=== PATIENT | female | born 1930 | race Caucasian/White ===

== ENCOUNTER 2017-01-10 10:55 | Inpatient (IN) | payer MEDICARE, OTHER ==
[~2017-01-10] VITALS: Ht 160 cm; Wt 67.7 kg
[2017-01-10] VITALS (7 sets, daily range): BP systolic 179–192; BP diastolic 74–84; PULSE 64–65; RESP 17–18; TEMP 96.5–97.6; O2SAT 93–98
[~2017-01-10 10:55] MED LIST: APIX5TAB PO; BACT800T5 PO; DIVA250ER PO; HYDR12.56 PO; LEVO125T3 PO; NAPR220T95 PO; NAPR500 PO; VITA-13 PO; ZOLO50TA PO
[2017-01-10] MEDS ORDERED: SODIUM CHLORIDE 0.9% FLUSH 10 ML FLUSH IVF PRN (11:15)
[2017-01-10] MEDS ORDERED: ASPIRIN 81 MG CHEW TAB CHEW ONE (11:15)
[2017-01-10] MEDS ORDERED: MAPA500T PO (11:26)
[2017-01-10 11:27] LABS: AUTOMATED NEUTROPHIL # 6.3 TH/MM3 (1.8-7.7); BASOPHIL # 0.1 TH/MM3 (0-0.2); BASOPHIL % 1.1 % (0.0-2.0); EOSINOPHIL % 0.2 % (0.0-4.0); HEMO FLAGS DIFF FINAL; LYMPH % 13.7 % (9.0-44.0); LYMPHOCYTE # 1.1 TH/MM3 (1.0-4.8); MEAN CELL VOLUME 93.4 FL (80.0-100.0); MEAN CORPUSCULAR HEMOGLOBIN 30.6 PG (27.0-34.0); MEAN CORPUSCULAR HGB CONC 32.7 % (32.0-36.0); MONO % 7.1 % (0.0-8.0); NEUT % 77.9 % (16.0-70.0); PLATELET COUNT 202 TH/MM3 (150-450); RED BLOOD COUNT 5.14 MIL/MM3 (4.00-5.30); RED CELL DISTRIBUTION WIDTH 13.6 % (11.6-17.2)
--- NOTE | 2017-01-10 11:34 | PD ---
HPI Chief Complaint: Chest Pain Time Seen by Provider: 11:00 Travel History International Travel<30 days: No Contact w/Intl Traveler<30days: No Traveled to known affect area: No History of Present Illness HPI This is an 86-year-old female who presents to the emergency department with chest discomfort that started yesterday, constant, moderate severity, associated with shortness of breath. She feels like she is having difficulty taking a deep breath. She is not a good historian and has difficulty telling me what her other medical problems are. She says she's had similar symptoms in the past but doesn't know what from. PFSH Past Medical History Hx Anticoagulant Therapy: Yes (ELAQUIST) Atrial Fibrillation: Yes Heart Rhythm Problems: Yes Cardiovascular Problems: Yes Chest Pain: Yes Cerebrovascular Accident: Yes (TIA AGE 52) Coronary Artery Disease: Yes GERD: Yes Hypertension: Yes Immunizations Current: Yes Seizures: Yes (ABNORMAL EEG) Thyroid Disease: Yes Menopausal: Yes Past Surgical History Body Medical Devices: pacemaker Cardiac Surgery: Yes (Ablation, pacemaker) Cholecystectomy: Yes Endocrine Surgery: Yes (THYROID REMOVED) Eye Surgery: Yes (BILATERAL CATARACT SURGERY) Hysterectomy: Yes Pacemaker: Yes (medtronic) Social History Alcohol Use: No Tobacco Use: No Substance Use: No Allergies-Medications (Allergen,Severity, Reaction): Coded Allergies: Beta Blockers (Verified Allergy, Severe, a-fib, 01/10/17) Quinidine (Verified Allergy, Severe, Hallucinations, 01/10/17) Procainamide Hcl (Verified Allergy, Unknown, PT DOES NOT KNOW, 06/09/16) Uncoded Allergies: HYDROMET SPRAYS (Allergy, Unknown, 05/16/10) Reported Meds & Prescriptions Reported Meds & Active Scripts Active Reported Lidocaine Patch 12 HR (Lidocaine) 5 % Patch 1 Patch TOPICAL DAILY PRN Remove patch after 12 hours Milk of Magnesia Liq (Magnesium Hydroxide) 400 Mg/5 Ml Susp 30 Ml PO DAILY PRN Mapap (Acetaminophen) 325 Mg Tab 325 Mg PO Q4-6H PRN Zoloft (Sertraline HCl) 25 Mg Tab 25 Mg PO DAILY Lortab (Hydrocodone-Acetaminophen) 5-325 Mg Tab 1 Tab PO Q6H PRN [place] Thyroid (Thyroid) 120 Mg Tab 120 Mg PO DAILY Nitro-Dur Patch 24 HR (Nitroglycerin) 0.2 Mg/Hr Patch 0.2 Mg T-DERMAL DAILY Aspirin 81 Mg Chew 81 Mg CHEW DAILY Toviaz ER (Fesoterodine Fumarate) 4 mg Linnea 4 Mg PO DAILY Travatan Z Opth Drops (Travoprost) 0.004 % Soln 1 Drop EACH EYE HS Mapap (Acetaminophen) 500 Mg Tab 500 Mg PO BID Review of Systems ROS Limitations: Poor Historian Physical Exam Narrative GENERAL: Frail elderly female in no acute distress. SKIN: Focused skin assessment warm and dry. HEAD: Atraumatic. Normocephalic. EYES: Pupils equal and round. No injection or drainage. ENT: Moist mucous membranes NECK: Trachea midline. CARDIOVASCULAR: Regular rate and rhythm. No murmur appreciated. 1+ pitting edema in the bilateral lower extremities. RESPIRATORY: Tachypneic. Clear to auscultation. Breath sounds equal bilaterally. GASTROINTESTINAL: Abdomen soft, non-tender, nondistended. MUSCULOSKELETAL: No obvious deformities. NEUROLOGICAL: Awake and alert. No obvious cranial nerve deficits. Moving all extremities. PSYCHIATRIC: Appropriate mood and affect; insight and judgment normal. Data Data Last Documented VS Vital Signs Date Time Temp Pulse Resp B/P Pulse Ox O2 Delivery O2 Flow Rate FiO2 01/10/17 12:37 65 18 186/79 98 Nasal Cannula 2 01/10/17 10:58 97.6 Orders Electrocardiogram (01/10/17 11:01) B-Type Natriuretic Peptide (01/10/17 11:01) Complete Blood Count With Diff (01/10/17 11:01) Comprehensive Metabolic Panel (01/10/17 11:01) D-Dimer (01/10/17 11:01) Magnesium (Mg) (01/10/17 11:01) Prothrombin Time / Inr (Pt) (01/10/17 11:01) Act Partial Throm Time (Ptt) (01/10/17 11:01) Troponin I (01/10/17 11:01) Chest, Single Ap (01/10/17 11:01) Ecg Monitoring (01/10/17 11:01) Bilateral Bp Monitoring (01/10/17 11:01) Iv Access Insert/Monitor (01/10/17 11:01) Oximetry (01/10/17 11:01) Oxygen Administration (01/10/17 11:01) Sodium Chloride 0.9% Flush (Ns Flush) (01/10/17 11:15) Aspirin Chew (Aspirin Chew) (01/10/17 11:15) Ct Pulmonary Angiogram (01/10/17 ) Furosemide Inj (Lasix Inj) (01/10/17 12:30) Admit Order (Ed Use Only) (01/10/17 12:37) Labs Laboratory Tests Test 01/10/17 11:00 White Blood Count 8.0 TH/MM3 Red Blood Count 5.14 MIL/MM3 Hemoglobin 15.7 GM/DL Hematocrit 48.0 % Mean Corpuscular Volume 93.4 FL Mean Corpuscular Hemoglobin 30.6 PG Mean Corpuscular Hemoglobin 32.7 % Concent Red Cell Distribution Width 13.6 % Platelet Count 202 TH/MM3 Mean Platelet Volume 9.4 FL Neutrophils (%) (Auto) 77.9 % Lymphocytes (%) (Auto) 13.7 % Monocytes (%) (Auto) 7.1 % Eosinophils (%) (Auto) 0.2 % Basophils (%) (Auto) 1.1 % Neutrophils # (Auto) 6.3 TH/MM3 Lymphocytes # (Auto) 1.1 TH/MM3 Monocytes # (Auto) 0.6 TH/MM3 Eosinophils # (Auto) 0.0 TH/MM3 Basophils # (Auto) 0.1 TH/MM3 CBC Comment DIFF FINAL Differential Comment Prothrombin Time 12.0 SEC Prothromb Time International 1.1 RATIO Ratio Activated Partial 26.1 SEC Thromboplast Time D-Dimer Quantitative (PE/DVT) 1.42 MG/L FEU Sodium Level 141 MEQ/L Potassium Level 4.6 MEQ/L Chloride Level 106 MEQ/L Carbon Dioxide Level 24.0 MEQ/L Anion Gap 11 MEQ/L Blood Urea Nitrogen 15 MG/DL Creatinine 0.98 MG/DL Estimat Glomerular Filtration 54 ML/MIN Rate Random Glucose 99 MG/DL Calcium Level 9.0 MG/DL Magnesium Level 2.0 MG/DL Total Bilirubin 1.1 MG/DL Aspartate Amino Transf 28 U/L (AST/SGOT) Alanine Aminotransferase 35 U/L (ALT/SGPT) Alkaline Phosphatase 128 U/L Troponin I 0.04 NG/ML B-Type Natriuretic Peptide 3491 PG/ML Total Protein 8.1 GM/DL Albumin 3.9 GM/DL MDM Medical Decision Making Medical Screen Exam Complete: Yes Emergency Medical Condition: Yes Interpretation(s) EKG: Ventricular pacing No leukocytosis Electrolytes are reassuring BNP is 3491 Troponin is 0.04 Chest x-ray: Cardiomegaly with vascular congestive changes CT: No pulmonary embolus Differential Diagnosis Congestive heart failure, pneumonia, pulmonary embolism, acute coronary syndrome , myocardial infarction Narrative Course This is an 86-year-old female who presents to the emergency department with increasing shortness of breath and chest discomfort. She is not a great historian and provides limited information regarding her past medical history. She was placed on a monitor and an IV was established. EKG demonstrates ventricular pacing. Labs are obtained which demonstrate a BNP of 3000. Chest x -ray demonstrates volume overload. Patient will be admitted for IV diuresis and cardiology evaluation as this may be a new diagnosis of congestive heart failure for her. Diagnosis Primary Impression: Acute congestive heart failure Qualified Code: I50.9 - Acute congestive heart failure, unspecified congestive heart failure type Admitting Information Admitting Physician Requests: Admit Latanya Weiner MD January 10, 2017 11:34
[2017-01-10 11:46] LABS: APTT (PATIENT) 26.1 SEC (24.3-30.1); INTERNATIONAL NORMALIZED RATIO 1.1 RATIO
--- NOTE | 2017-01-10 11:47 | RADRPT ---
EXAM DATE/TIME: 01/10/2017 11:07 [facility] COMPARISON: No previous studies available for comparison. INDICATIONS : Chest pains with shortness of breath, pacemaker. MEDICAL HISTORY : Myocardial infarction. SURGICAL HISTORY : Pacemaker. ENCOUNTER: Initial ACUITY: 1 day PAIN SCORE: 5/10 LOCATION: Left chest FINDINGS: The heart is moderately to markedly enlarged. Lungs are hypoaerated with increased density in both lung bases especially on the left. There is central vascular congestion. Pacemaker is noted in place. CONCLUSION: Cardiomegaly with vascular congestive changes. Bibasilar opacity with significant airspace disease and effusion on the left. Cameron Marques MD on January 10, 2017 at 11:44 Board Certified Radiologist. This report was verified electronically.
[2017-01-10 11:48] LABS: ANION GAP 11 MEQ/L (5-15); AST (GOT) 28 U/L (15-37); BLOOD UREA NITROGEN 15 MG/DL (7-18); CHLORIDE 106 MEQ/L (98-107); GLOMERULAR FILTRATION RATE 54 ML/MIN (>89); POTASSIUM 4.6 MEQ/L (3.5-5.1); SODIUM (NA) 141 MEQ/L (136-145)
[2017-01-10 11:53] LABS: ALKALINE PHOSPHATASE 128 U/L (45-117); ALT (GPT) 35 U/L (10-53); TOTAL BILIRUBIN ADULT 1.1 MG/DL (0.2-1.0)
--- NOTE | 2017-01-10 11:57 | EKG ---
Date Performed: 01/10/2017 Time Performed: 10:59:18 PTAGE: 86 years EKG: ELECTRONIC VENTRICULAR PACEMAKER ABNORMAL RHYTHM ECG NO PREVIOUS TRACING DOCTOR: Jeyson Patel Interpretating Date/Time 01/10/2017 11:56:30
[2017-01-10] MEDS ORDERED: FUROSEMIDE 40 MG/4 ML VIAL IV PUSH ONE (12:30)
[2017-01-10] MEDS ORDERED: ARMO120T PO (12:45)
[2017-01-10] MEDS ORDERED: TOVI4TAB PO (12:45)
[2017-01-10] MEDS ORDERED: ASPI81CH CHEW (12:45)
[2017-01-10] MEDS ORDERED: MAPA325T PO (12:45)
[2017-01-10] MEDS ORDERED: NITR0.2D T-DERMAL (12:45)
[2017-01-10] MEDS ORDERED: TRAV0.00 EACH EYE (12:45)
[2017-01-10] MEDS ORDERED: ZOLO25TA PO (12:45)
[2017-01-10] MEDS ORDERED: HYDR-3533 PO (12:45)
[2017-01-10] MEDS ORDERED: LIDO1PAD52 TOPICAL (12:46)
[2017-01-10] MEDS ORDERED: MILKSUS PO (12:46)
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
[2017-01-10] MEDS ORDERED: SODIUM CHLORIDE 0.9% FLUSH 10 ML FLUSH IV FLUSH PRN ×2 (13:15→13:45)
[2017-01-10] MEDS ORDERED: NALOXONE HCL 0.4 MG/ML AMP IV PRN (13:15)
[2017-01-10] MEDS ORDERED: HEPARIN SODIUM - SQ 10,000 UNITS/ML VIAL SQ SCH (13:45)
[2017-01-10] MEDS ORDERED: ACETAMINOPHEN 325 MG TAB PO PRN (13:45)
[2017-01-10] MEDS: HEPARIN SODIUM - IV 10,000 UNITS/10 ML VIAL IV ONE ×2 (14:00→16:31)
[2017-01-10] MEDS ORDERED: HEPARIN-D5W INJ 250 ML IV SCH (14:00)
[2017-01-10] MEDS ORDERED: IOHEXOL 350 MG/ML 10 ML VIAL (for RAD DIAG) IV ONE (14:44)
--- NOTE | 2017-01-10 15:16 | RADRPT ---
EXAM DATE/TIME: 01/10/2017 14:23 [facility] COMPARISON: No previous studies available for comparison. INDICATIONS : Chest pain and shortness of breath as of last night. IV CONTRAST: 70 cc Omnipaque 350 (iohexol) IV RADIATION DOSE: 46.58 CTDIvol (mGy) MEDICAL HISTORY : Seizures. Cerebrovascular disease. Hypertension.AFIB, SURGICAL HISTORY : Cholecystectomy. Hysterectomy.Pacemaker. ENCOUNTER: Initial ACUITY: 1 day PAIN SCALE: 0/10 LOCATION: chest TECHNIQUE: Volumetric scanning of the chest was performed using a pulmonary embolism protocol MIP images were re constructed. Using automated exposure control and adjustment of the mA and/or kV according to patien t size, radiation dose was kept as low as reasonably achievable to obtain optimal diagnostic quality images. FINDINGS: PULMONARY ARTERIES: No filling defects are seen in the pulmonary arteries through the segmental level. LUNGS: Dependent atelectatic changes. PLEURAE: Moderately large pleural effusions bilaterally. MEDIASTINUM: There is good visualization of the great vessels of the middle mediastinum. No evidence of mediastin al or hilar adenopathy/mass. Granulomatous type calcifications most prominent in the left hilum. Athe rosclerotic calcification of the coronary arteries. Heart size is prominent MUSCULOSKELETAL: Within normal limits for patient age. MISCELLANEOUS: The visualized upper abdominal organs demonstrate no acute abnormality. Granulomatous type calcificat ions in the liver and spleen. CONCLUSION: 1. Bilateral moderate-sized pleural effusions. 2. Cardiomegaly. Bibasilar atelectatic changes. 3. No pulmonary embolus. 4. Old granulomatous disease. Fco Guerrero MD on January 10, 2017 at 15:08 Board Certified Radiologist. This report was verified electronically.
--- NOTE | 2017-01-10 15:23 | EC ---
Study Study Date:01/10/2017 STUDY CONCLUSIONS SUMMARY - Left ventricle: The cavity size was normal. Wall thickness was normal. Systolic function was moderately reduced. The estimated ejection fraction was 35%, in the range of 35% to 40%. Diffuse hypokinesis. - Aortic valve: Mild regurgitation. Valve area: 1.41cm^2 (Vmax). - Mitral valve: Mildly calcified annulus. Moderate regurgitation. - Left atrium: The atrium was mildly dilated. - Tricuspid valve: Moderate-severe regurgitation. - Pulmonary arteries: Systolic pressure was moderately to severely increased. PA peak pressure: 72mm Hg (S). If LV function is below 40, please consider prescribing an ACEI or ARB or document rationale for non-use. PROCEDURE DATA STUDY STATUS: Elective. Procedure: Transthoracic echocardiography. Image quality was good. Scanning was performed from the parasternal, apical, and subcostal acoustic windows. Study completion: The patient tolerated the procedure well. Transthoracic echocardiography. M-mode, complete 2D, complete spectral Doppler, and color Doppler. Patient status: Inpatient. CARDIAC ANATOMY LEFT VENTRICLE: The cavity size was normal. Wall thickness was normal. Systolic function was moderately reduced. The estimated ejection fraction was 35%, in the range of 35% to 40%. Diffuse hypokinesis. AORTIC VALVE: Trileaflet; mildly thickened, mildly calcified leaflets. Doppler: Transvalvular velocity was within the normal range. There was no stenosis. Mild regurgitation. Valve area: 1.41cm^2 (Vmax). AORTA: Aortic root: The aortic root was normal in size. MITRAL VALVE: Mildly calcified annulus. Doppler: Transvalvular velocity was within the normal range. There was no evidence for stenosis. Moderate regurgitation. Peak gradient: 6mm Hg (D). LEFT ATRIUM: The atrium was mildly dilated. RIGHT VENTRICLE: The cavity size was normal. Wall thickness was normal. Pacer wire or catheter noted in right ventricle. PULMONIC VALVE: Doppler: Transvalvular velocity was within the normal range. There was no evidence for stenosis. No regurgitation. TRICUSPID VALVE: Structurally normal valve. Doppler: Transvalvular velocity was within the normal range. Moderate-severe regurgitation. PULMONARY ARTERY: The main pulmonary artery was normal-sized. Systolic pressure was moderately to severely increased. RIGHT ATRIUM: The atrium was normal in size. PERICARDIUM: There was no pericardial effusion. SYSTEMIC VEINS: Inferior vena cava: The vessel was normal in size. BASIC MEASUREMENTS ADULT Normal Left ventricle LV internal dimension, ED, chordal level, *52.5 mm 43-52 PLAX LV internal dimension, ES, chordal level, *44.4 mm 23-38 PLAX Fractional shortening, chordal level, PLAX *15 % >29 LV posterior wall thickness, ED 9.54 mm IVS/LVPW ratio, ED 1.06 <1.3 Ventricular septum Septal thickness, ED 10.1 mm Aortic valve Leaflet separation 16 mm 15-26 Right ventricle RV internal dimension, ED, PLAX 29.3 mm 19-38 BASIC MEASUREMENTS ADULT Normal Aortic valve Leaflet separation 16 mm 15-26 Aorta Root diameter, ED 27 mm 20-37 Left atrium Anterior-posterior dimension, ES 40 mm 19-40 LA/aortic root ratio 1.48 DOPPLER MEASUREMENTS ADULT Normal Main pulmonary artery Pressure, S *72 mm Hg =30 Aortic valve Peak velocity, S 132 cm/s Valve area, Vmax 1.41 cm^2 Regurgitant velocity, ED 387 cm/s Regurgitant deceleration 1830 cm/s^2 Regurgitant pressure half-time 620 ms Regurgitant gradient, ED 60 mm Hg Mitral valve Peak E-wave velocity 127 cm/s Peak A-wave velocity 55.8 cm/s Deceleration time *148 ms 150-230 Peak gradient, D 6 mm Hg Peak E/A ratio 2.3 Maximal regurgitant velocity 591 cm/s Tricuspid valve Regurgitant peak velocity 338 cm/s Peak RV-RA gradient, S 46 mm Hg Maximal regurgitant velocity 338 cm/s Systemic veins Estimated CVP 10 mm Hg Right ventricle RV pressure, S *76 mm Hg <30 Pulmonic valve Peak velocity, S 102 cm/s LEGEND: Mean values are shown as u=mean value. Asterisk (*) summers values outside specified normal range. Prepared and signed by Ambrose Beth [id number]
[2017-01-10] MEDS: SACUBITRIL/VALSARTAN 24 MG-26 MG TAB PO SCH ×2 (16:30→21:46)
[2017-01-10] MEDS: FUROSEMIDE 40 MG/4 ML VIAL IV PUSH SCH ×2 (16:32→19:40)
--- NOTE | 2017-01-10 16:49 | MB ---
cc: SAULO MONIQUE DATE OF CONSULTATION: 01/10/2017. REASON FOR CONSULTATION: Evaluation and treatment of acute congestive heart failure. HISTORY OF PRESENT ILLNESS: Brittany Ulloa is an 86-year-old woman well-known to me. This is the first time she has had CHF. The patient has a history of permanent atrial fibrillation and underwent an AV node ablation in 1988. She has a permanent pacemaker and this is a [employer] device which is getting fairly close to needing replacement. She is paced in the VVI mode unipolar. She has previously abandoned the ventricular lead. Her overall health has deteriorated. She has had about 20 falls and has fractured her clavicles. The left clavicle fracture is particularly severe. I took her off anticoagulation at her last office because of that. She has been on only aspirin. She has been noticing three days of progressive shortness of breath which became acutely severe at one o'clock this morning. She described some pain when she takes a deep breath. I really cannot elicit any angina from her. Her shortness of breath has improved since she has been here. She has been noted to have swelling in her feet which according to her is chronic. She has currently been moved from [facility] and she has a supportive daughter. She has no other acute complaints. MEDICATIONS: Her medication list from my office included: 1. [place] thyroid 120 milligrams daily. 2. Aspirin 81 milligrams daily. 3. Depakote 250 milligrams delayed release daily. 4. Hydrochlorothiazide . 5. Levothyroxine 125 micrograms daily. 6. Nitroglycerin 0.2 milligrams transdermal patch daily. 7. Sertraline 50 milligrams daily. 8. Toviaz 4 milligrams extended release daily. 9. Travatan eye drops once daily in the evening. PAST MEDICAL HISTORY: Her past medical history includes: 1. Angina. 2. Coronary artery disease with a catheterization May 16, 2010 showing a 50% mid left anterior descending stenosis but with a normal fractional flow reserve. 3. Gastroesophageal reflux. 4. Essential hypertension. 5. Gout. 6. Hyperlipidemia. 7. Permanent pacemaker. 8. Permanent atrial fibrillation. 9. Polycythemia. 10. Previous TIA in 1987. PAST SURGICAL HISTORY: 1. Ablation of her AV node in 1988. 2. Right arthroscopic knee surgery. 3. Previous cardiac catheterization. 4. Cataract surgery. 5. Cholecystectomy. 6. Clavicle fractures. 7. 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 8. Hysterectomy in 1999. 9. Thyroidectomy in 1973, which was partial. SOCIAL HISTORY: Smoked from age 20 to age 32. ALLERGIES: 1. BETA BLOCKERS WHICH GIVE HER HALLUCINATIONS. 2. HYDROMET SYRUP. 3. NIASPAN. 4. PROCAINAMIDE. 5. QUININE. FAMILY HISTORY: Positive for coronary disease, diabetes and dementia. REVIEW OF SYSTEMS: Negative GI symptoms. Negative urinary symptoms. The remainder of her review of systems is also negative. PHYSICAL EXAMINATION: GENERAL: An elderly, somewhat frail-appearing white female not in any acute respiratory stress at this time. VITAL SIGNS: Charted. She is hypertensive. HEAD, EYES, EARS, NOSE, THROAT: Exam is unremarkable. NECK: Exam shows mildly increased central venous pressure. CHEST: Dullness to the left base. Diminished breath sounds at the bases. CARDIAC: S1-S2 regular rate and rhythm. There is a 2/6 mitral regurgitation murmur. She is a well-healed pacemaker in the left infraclavicular region. ABDOMEN: Soft. EXTREMITIES: Reveal 2+ nonpitting edema. Pulses are intact. EKGS: EKG shows atrial fibrillation with 100% ventricular pacing. LABORATORY DATA: Charted. IMPRESSION: Acute systolic congestive heart failure. Her echo is showing moderate MR and severe TR and an ejection fraction of about 35%. She has an intolerance to beta blockers due to hallucinations. 1. Plan on starting Entresto 24/ twice a day and Lasix 40 IV twice a day. 2. Cover for DVT prophylaxis with Enoxaparin. 3. Anticipate a hospital stay of at least two days. MD VIANEY Nina/KATHY /3:47 PM /4:35 PM
[2017-01-10] MEDS: FUROSEMIDE 40 MG/4 ML VIAL IVP SCH (16:57)
[2017-01-10] MEDS ORDERED: MAGNESIUM HYDROXIDE SUSP 30 ML CUP PO PRN (17:00)
[2017-01-10] MEDS ORDERED: PILL SPLITTER OTHER PRN (17:15)
[2017-01-10] MEDS: ENOXAPARIN SODIUM 40 MG/0.4 ML SYRINGE SQ SCH (18:59)
[2017-01-10] MEDS ORDERED: HEPARIN SODIUM - IV 10,000 UNITS/10 ML VIAL IV PRN ×2 (19:45)
[2017-01-10] MEDS ORDERED: NON-FORMULARY DRUG (Travoprost Opth Drops (Travatan Z Opth Drops) 1 DROP) EACH EYE SCH (21:00)
[2017-01-10] MEDS ORDERED: POTASSIUM CHLORIDE 10 MEQ CONTROLLED RELEASE TAB PO SCH (21:00)
[2017-01-10] MEDS ORDERED: SODIUM CHLORIDE 0.9% FLUSH 10 ML FLUSH IV FLUSH SCH (21:00)
[2017-01-10] MEDS: LATANOPROST 0.005% OPHT SOLN 2.5 ML BTL EACH EYE SCH (21:45)
[2017-01-10] MEDS: POTASSIUM CHLORIDE 10 MEQ CONTROLLED RELEASE TAB PO SCH (21:46)
[2017-01-10] MEDS: SODIUM CHLORIDE 0.9% FLUSH 10 ML FLUSH IV FLUSH SCH (21:53)
[2017-01-11] VITALS (9 sets, daily range): BP systolic 126–174; BP diastolic 54–93; PULSE 65–74; RESP 16–18; TEMP 96–97.2; O2SAT 93–97
[2017-01-11 00:25] LABS: HDL CHOLESTEROL 48.6 MG/DL (40.0-60.0)
[2017-01-11 07:42] LABS: AUTOMATED NEUTROPHIL # 7.9 TH/MM3 (1.8-7.7); BASOPHIL # 0.1 TH/MM3 (0-0.2); BASOPHIL % 1.1 % (0.0-2.0); EOSINOPHIL # 0.1 TH/MM3 (0-0.4); HEMATOCRIT 48.8 % (35.0-46.0); HEMO FLAGS DIFF FINAL; LYMPH % 12.8 % (9.0-44.0); LYMPHOCYTE # 1.3 TH/MM3 (1.0-4.8); MEAN CELL VOLUME 91.8 FL (80.0-100.0); MEAN CORPUSCULAR HEMOGLOBIN 31.4 PG (27.0-34.0); MEAN CORPUSCULAR HGB CONC 34.2 % (32.0-36.0); NEUT % 75.1 % (16.0-70.0); PLATELET COUNT 212 TH/MM3 (150-450); RED BLOOD COUNT 5.32 MIL/MM3 (4.00-5.30); RED CELL DISTRIBUTION WIDTH 13.7 % (11.6-17.2); WHITE BLOOD COUNT 10.6 TH/MM3 (4.0-11.0)
[2017-01-11 08:34] LABS: BICARBONATE 29.2 MEQ/L (21.0-32.0); MAGNESIUM 1.9 MG/DL (1.5-2.5)
[2017-01-11] MEDS ORDERED: FESOTERODINE 4 MG PO SCH (09:00)
[2017-01-11] MEDS ORDERED: PNEUMOCOCCAL POLYVALENT INJ 25 MCG/0.5 ML SYR IM ONE (10:00)
[2017-01-11] MEDS: THYROID 60 MG TAB PO SCH (10:16)
[2017-01-11] MEDS: POTASSIUM CHLORIDE 10 MEQ CONTROLLED RELEASE TAB PO SCH ×2 (10:17→17:10)
[2017-01-11] MEDS: SACUBITRIL/VALSARTAN 24 MG-26 MG TAB PO SCH ×2 (10:17→20:46)
[2017-01-11] MEDS: ASPIRIN 81 MG CHEW TAB CHEW SCH (10:17)
[2017-01-11] MEDS: TOLTERODINE TARTRATE 4 MG CAP LA PO SCH (10:17)
[2017-01-11] MEDS: SERTRALINE HCL 50 MG TAB PO SCH (10:17)
[2017-01-11] MEDS: SODIUM CHLORIDE 0.9% FLUSH 10 ML FLUSH IV FLUSH SCH ×2 (10:18→21:00)
[2017-01-11] MEDS: FUROSEMIDE 40 MG/4 ML VIAL IVP SCH ×2 (10:18→17:10)
[2017-01-11] MEDS ORDERED: POTASSIUM CHLORIDE 10 MEQ CONTROLLED RELEASE TAB PO ONE (12:00)
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
[2017-01-11] MEDS ORDERED: POTASSIUM CHLORIDE 20 MEQ CONTROLLED RELEASE TAB PO STA (12:19)
[2017-01-11] MEDS ORDERED: MAGNESIUM SULFATE 1 GM PREMIX 100 ML IV ONE (12:30)
--- NOTE | 2017-01-11 12:33 | PD.CARD.PN ---
Subjective Subjective Remarks chest hurts when she takes a deap breath. Still a little dyspnea Objective Medications Current Medications Medications (Trade) Dose Ordered Sig/Tim Route Start Time Stop Time Status Last Admin (Narcan Inj) 0.4 mg UNSCH PRN IV 01/10/17 13:15 (NS Flush) 2 ml UNSCH PRN IV FLUSH 01/10/17 13:45 (Lasix Inj) 40 mg BID@09,18 IVP 01/10/17 18:00 01/11/17 10:18 (Tylenol) 650 mg Q4H PRN PO 01/10/17 13:45 (NS Flush) 2 ml BID IV FLUSH 01/10/17 21:00 01/11/17 10:18 (Entresto 24-26 Mg) 1 tab BID PO 01/10/17 16:00 01/11/17 10:17 (Lovenox Inj) 40 mg Q24H SQ 01/10/17 17:00 01/10/17 18:59 (Aspirin Chew) 81 mg DAILY CHEW 01/11/17 09:00 01/11/17 10:17 ([place] 5-325 Mg) 1 tab Q6H PRN PO 01/10/17 17:00 (Milk Of Magnesia Liq) 30 ml DAILY PRN PO 01/10/17 17:00 (Zoloft) 25 mg DAILY PO 01/11/17 09:00 01/11/17 10:17 ([place] Thyroid) 120 mg DAILY PO 01/11/17 09:00 01/11/17 10:16 (Pill Splitter) 1 ea UNSCH PRN OTHER 01/10/17 17:15 (Xalatan 0.005% Opth Soln) 1 drop HS EACH EYE 01/10/17 21:00 01/10/17 21:45 (Detrol La) 4 mg DAILY PO 01/11/17 09:00 01/11/17 10:17 Potassium Chloride 20 meq 20 meq TID PO 01/11/17 18:00 UNV (Magnesium Sulfate 1 Gm Premix) 100 ml @ 100 mls/hr ONCE ONCE IV 01/11/17 12:30 01/11/17 13:29 UNV Vital Signs / I&O Vital Signs Date Time Temp Pulse Resp B/P Pulse Ox O2 Delivery O2 Flow Rate FiO2 01/11/17 09:17 95 Nasal Cannula 1.00 01/11/17 08:00 96.5 65 18 142/60 95 01/11/17 04:00 96.0 66 17 153/67 95 01/11/17 00:00 96.1 65 18 174/74 93 01/10/17 20:00 96.5 65 17 181/74 93 01/10/17 16:00 97.5 65 18 192/76 95 01/10/17 13:48 98 Nasal Cannula 2.00 01/10/17 12:37 65 18 186/79 98 Nasal Cannula 2 I/O 01/10/17 01/10/17 01/10/17 01/11/17 01/11/17 01/11/17 07:00 15:00 23:00 07:00 15:00 23:00 Intake Total 120 ml Balance 120 ml Intake Oral 120 ml # Voids 2 4 Physical Exam Alert, frail Neck: neck veins visible but CVP not high Chest clear. costochondral tenderness bilaterally CV S1S2 RRR with 1/6 sys M Abd soft Ext 1-2+ nonpitting edema. No calf tenderness Laboratory Laboratory Tests Test 01/10/17 01/10/17 01/11/17 18:29 23:34 07:00 Total Creatine Kinase 56 U/L 89 U/L Troponin I 0.04 NG/ML 0.03 NG/ML Triglycerides Level 152 MG/DL Cholesterol Level 157 MG/DL LDL Cholesterol 78 MG/DL HDL Cholesterol 48.6 MG/DL Cholesterol/HDL Ratio 3.23 RATIO Thyroid Stimulating Hormone 0.313 uIU/ML 3rd Gen White Blood Count 10.6 TH/MM3 Red Blood Count 5.32 MIL/MM3 Hemoglobin 16.7 GM/DL Hematocrit 48.8 % Mean Corpuscular Volume 91.8 FL Mean Corpuscular Hemoglobin 31.4 PG Mean Corpuscular Hemoglobin 34.2 % Concent Red Cell Distribution Width 13.7 % Platelet Count 212 TH/MM3 Mean Platelet Volume 9.6 FL Neutrophils (%) (Auto) 75.1 % Lymphocytes (%) (Auto) 12.8 % Monocytes (%) (Auto) 10.0 % Eosinophils (%) (Auto) 1.0 % Basophils (%) (Auto) 1.1 % Neutrophils # (Auto) 7.9 TH/MM3 Lymphocytes # (Auto) 1.3 TH/MM3 Monocytes # (Auto) 1.1 TH/MM3 Eosinophils # (Auto) 0.1 TH/MM3 Basophils # (Auto) 0.1 TH/MM3 CBC Comment DIFF FINAL Differential Comment Sodium Level 140 MEQ/L Potassium Level 3.0 MEQ/L Chloride Level 101 MEQ/L Carbon Dioxide Level 29.2 MEQ/L Anion Gap 10 MEQ/L Blood Urea Nitrogen 16 MG/DL Creatinine 0.94 MG/DL Estimat Glomerular Filtration 57 ML/MIN Rate Random Glucose 95 MG/DL Calcium Level 8.6 MG/DL Magnesium Level 1.9 MG/DL Assessment and Plan Problem List: (1) Acute systolic CHF (congestive heart failure) Assessment and Plan: Improved. Cont. Entresto. Might increase to 49-51bid depending on MARY ANNE (2) Pacemaker Assessment and Plan: VVI (3) Atrial fibrillation Assessment and Plan: Chronic (4) Diuretic-induced hypokalemia Assessment and Plan: replete. Also add spironolactone (5) Pleuritic chest pain Assessment and Plan: most likely costochondritis - consider chest CTA if sats low off of O2 (6) Beta-maikel intolerance Assessment and Plan: Severe nightmares. (7) Frail elderly Assessment and Plan: 20 falls. Has been taken off anticoagulation (8) Costochondritis Assessment and Plan: exquisite bilateral tenderness (9) Mitral regurgitation (10) Tricuspid regurgitation (11) Cardiomyopathy Assessment and Plan If improves enough, possible discharge tomorrow. Discussed Condition With daughter Ambrose Beth MD January 11, 2017 12:33
[2017-01-11] MEDS: ACETAMINOPHEN/HYDROcodone 325 MG/5 MG TAB PO PRN (12:37)
--- NOTE | 2017-01-11 13:55 | EKG ---
Date Performed: 01/10/2017 Time Performed: 18:21:52 PTAGE: 86 years EKG: ELECTRONIC VENTRICULAR PACEMAKER The underlying rhythm is probably atrial fibrilation Clini lane correlation with a pacemaker interrogation would be advised. Compared to previous tracing, there is no serial change. ABNORMAL RHYTHM ECG PREVIOUS TRACING : 01/10/2017 10.59 DOCTOR: Manju Wolf Interpretating Date/Time 01/11/2017 13:54:24
--- NOTE | 2017-01-11 13:55 | EKG ---
Date Performed: 01/10/2017 Time Performed: 22:42:08 PTAGE: 86 years EKG: ELECTRONIC VENTRICULAR PACEMAKER Probable underlying atrial fibrillation No serial change A BNORMAL RHYTHM ECG PREVIOUS TRACING : 01/10/2017 18.21 DOCTOR: Manju Wolf Interpretating Date/Time 01/11/2017 13:54:45
[2017-01-11] MEDS ORDERED: IOHEXOL 350 MG/ML 10 ML VIAL (for RAD DIAG) IV ONE (15:43)
--- NOTE | 2017-01-11 16:08 | RADRPT ---
EXAM DATE/TIME: 01/11/2017 15:14 [place] COMPARISON: CT PULMONARY ANGIOGRAM, January 10, 2017, 14:23. INDICATIONS : Chest pain and short of breath. Evaluate for embolism. IV CONTRAST: 140 cc Omnipaque 350 (iohexol) IV RADIATION DOSE: 15.38 CTDIvol (mGy) MEDICAL HISTORY : Cardiovascular disease. Hypertension. SURGICAL HISTORY : Pacemaker. Cholecystectomy. ENCOUNTER: Initial ACUITY: 2 days PAIN SCALE: 3/10 LOCATION: Chest TECHNIQUE: Volumetric scanning of the chest was performed using a pulmonary embolism protocol MIP images were re constructed. Using automated exposure control and adjustment of the mA and/or kV according to patien t size, radiation dose was kept as low as reasonably achievable to obtain optimal diagnostic quality images. FINDINGS: There is no evidence of pulmonary embolism. Small bilateral pleural effusions are noted with bibasil ar compressive atelectasis. The heart is enlarged. Coronary artery calcifications are noted. No pu lmonary edema is noted. No alveolar consolidation to suggest pneumonia is noted. No pulmonary nodul e or mass is noted. Scattered nonspecific minimally prominent pretracheal, AP window and subcarinal mediastinal lymph nodes are noted. CONCLUSION: 1. No evidence of pulmonary embolism. 2. Small bilateral pleural effusions with adjacent compressive atelectasis. 3. Cardiomegaly and coronary artery calcifications. 4. Minimally prominent pretracheal, AP window and subcarinal mediastinal lymph nodes which are nonsp ecific. Romeo Lerma MD on January 11, 2017 at 15:57 Board Certified Radiologist. This report was verified electronically.
[2017-01-11] MEDS: ENOXAPARIN SODIUM 40 MG/0.4 ML SYRINGE SQ SCH (17:10)
[2017-01-11] MEDS: LATANOPROST 0.005% OPHT SOLN 2.5 ML BTL EACH EYE SCH (20:46)
[2017-01-12] VITALS (8 sets, daily range): BP systolic 124–143; BP diastolic 57–68; PULSE 63–65; RESP 16–20; TEMP 96.6–98.4; O2SAT 94–96
[2017-01-12 09:57] LABS: BICARBONATE 26.8 MEQ/L (21.0-32.0); POTASSIUM 4.1 MEQ/L (3.5-5.1)
[2017-01-12] MEDS: SERTRALINE HCL 50 MG TAB PO SCH (10:10)
[2017-01-12] MEDS: ASPIRIN 81 MG CHEW TAB CHEW SCH (10:10)
[2017-01-12] MEDS: THYROID 60 MG TAB PO SCH (10:10)
[2017-01-12] MEDS: SACUBITRIL/VALSARTAN 24 MG-26 MG TAB PO SCH ×2 (10:11→21:46)
[2017-01-12] MEDS: TOLTERODINE TARTRATE 4 MG CAP LA PO SCH (10:11)
[2017-01-12] MEDS: SODIUM CHLORIDE 0.9% FLUSH 10 ML FLUSH IV FLUSH SCH ×2 (10:11→21:00)
[2017-01-12] MEDS: POTASSIUM CHLORIDE 10 MEQ CONTROLLED RELEASE TAB PO SCH ×3 (10:11→18:04)
[2017-01-12] MEDS: FUROSEMIDE 40 MG/4 ML VIAL IVP SCH ×2 (10:11→18:04)
--- NOTE | 2017-01-12 11:46 | HHI.FPPN ---
Subjective Remarks Patient was seen and examined this morning. Poor historian but notes that her chest is not hurting today. She states that she does get dizzy when she gets up. Orthostatic vital signs not yet completed. Eating and voiding without difficulty. (Ashly Bernstein MD R1) Objective Vitals Vital Signs Date Time Temp Pulse Resp B/P Pulse Ox O2 Delivery O2 Flow Rate FiO2 01/12/17 08:51 95 21 01/12/17 08:00 98.0 63 20 96 01/12/17 04:00 97.6 65 18 143/66 94 01/12/17 00:00 97.0 65 17 138/63 94 01/11/17 20:00 97.2 65 18 131/61 93 01/11/17 16:52 97 21 01/11/17 16:00 96.0 65 18 126/54 93 01/11/17 12:00 97.0 74 16 146/93 97 I/O 01/11/17 01/11/17 01/11/17 01/12/17 01/12/17 01/12/17 07:00 15:00 23:00 07:00 15:00 23:00 Intake Total 120 ml 241 ml 120 ml Balance 120 ml 241 ml 120 ml Intake Oral 120 ml 120 ml 120 ml IV Total 121 ml # Voids 4 2 4 (Ashly Bernstein MD R1) Result Diagram: 01/11/17 0700 01/12/17 [address] Angiography 01/11/17 0000 Signed Impressions: Service Date/Time: Wednesday, January 11, 2017 15:14 - CONCLUSION: 1. No evidence of pulmonary embolism. 2. Small bilateral pleural effusions with adjacent compressive atelectasis. 3. Cardiomegaly and coronary artery calcifications. 4. Minimally prominent pretracheal, AP window and subcarinal mediastinal lymph nodes which are nonspecific. Romeo Lerma MD Chest X-Ray 01/10/17 1101 Signed Impressions: Service Date/Time: Tuesday, January 10, 2017 11:07 - CONCLUSION: Cardiomegaly with vascular congestive changes. Bibasilar opacity with significant airspace disease and effusion on the left. Cameron Marques MD Objective Remarks GENERAL: Frail-appearing elderly female, lying in bed comfortably. Pleasant and alert, but easily distracted. SKIN: Warm and dry. No obvious rashes or bruises. HEAD: Atraumatic. Normocephalic. EYES: Pupils equal and round. No scleral icterus. No injection or drainage. ENT: No nasal bleeding or discharge. Mucous membranes pink and moist. NECK: Trachea midline. No JVD. CARDIOVASCULAR: Regular rate and rhythm. No murmurs appreciated. RESPIRATORY: No accessory muscle use. Clear to auscultation. Breath sounds equal bilaterally. GASTROINTESTINAL: Abdomen soft, non-tender, nondistended. Hepatic and splenic margins not palpable. MUSCULOSKELETAL: Mild clavicular deformity, chronic. Able to sit up with assistance. Extremities without clubbing, cyanosis, or edema. No obvious deformities. EXTREMITIES: 1+ pitting edema in the bilateral lower extremities. NEUROLOGICAL: Awake and alert. No obvious cranial nerve deficits. Motor grossly within normal limits. Strength is reduced in the upper extremities, 4/5. Normal speech. PSYCHIATRIC: Appropriate mood and affect; insight and judgment normal. Medications and IVs Inpatient Medications Acetaminophen (Tylenol) 650 mg Q4H PRN PO TEMP > 100.4; Start 01/10/17 at 13:45 Acetaminophen/ Hydrocodone Bitart ([place] 5-325 Mg) 1 tab Q6H PRN PO PAIN Last administered on 01/11/17 12:37; Start 01/10/17 at 17:00 Aspirin (Aspirin Chew) 81 mg DAILY CHEW Last administered on 01/12/17 10:10; Start 01/11/17 at 09:00 Enoxaparin Sodium (Lovenox Inj) 40 mg Q24H SQ Last administered on 01/11/17 17 :10; Start 01/10/17 at 17:00 Furosemide (Lasix Inj) 40 mg BID@,18 IV PUSH Last administered on 01/10/17 19:40; Start 01/10/17 at 18:00; Stop 01/10/17 at 18:00; Status DC Heparin Sodium (Porcine) (Heparin Inj) 4,000 units ONCE ONCE IV ; Start at 14:00; Stop 01/10/17 at 17:57; Status DC Latanoprost (Xalatan 0.005% Opth Soln) 1 drop HS EACH EYE Last administered on 01/11/17 20:46; Start 01/10/17 at 21:00 Magnesium Hydroxide (Milk Of [place] Tacticalesia Liq) 30 ml DAILY PRN PO INDIGESTION OR UPSET STOMACH; Start 01/10/17 at 17:00 Magnesium Sulfate/ Dextrose (Magnesium Sulfate 1 Gm Premix) 100 ml @ 100 mls/ hr ONCE ONCE IV Last administered on 01/11/17 13:55; Start 01/11/17 at 12:30 ; Stop 01/11/17 at 13:29; Status DC Miscellaneous (Pill Splitter) 1 ea UNSCH PRN OTHER SEE LABEL COMMENTS; Start at 17:15 Naloxone HCl (Narcan Inj) 0.4 mg UNSCH PRN IV SEE LABEL COMMENTS; Start at 13:15 Pneumococcal Polyvalent Vaccine (Pneumovax-23 Inj) 25 mcg ONCE ONCE IM ; Start 01/11/17 at 10:00; Stop 01/11/17 at 10:01; Status DC Potassium Chloride 40 meq 40 meq ONCE STAT PO ; Start 01/11/17 at 12:19; Stop 01/11/17 at 12:36; Status DC Potassium Chloride (KCl) 20 meq TID PO Last administered on 01/12/17 10:11; Start 01/11/17 at 18:00 Sacubitril/ Valsartan (Entresto 24-26 Mg) 1 tab BID PO Last administered on 10:11; Start 01/10/17 at 16:00 Sertraline HCl (Zoloft) 25 mg DAILY PO Last administered on 01/12/17 10:10; Start 01/11/17 at 09:00 Sodium Chloride (NS Flush) 2 ml BID IV FLUSH Last administered on 01/12/17 10: 11; Start 01/10/17 at 21:00 Thyroid ([place] Thyroid) 120 mg DAILY PO Last administered on 01/12/17 10:10; Start 01/11/17 at 09:00 Tolterodine Tartrate (Detrol La) 4 mg DAILY PO Last administered on 01/12/17 10:11; Start 01/11/17 at 09:00 (Ashly Bernstein MD R1) Urinary Catheter: No (Ashly Bernstein MD R1) Vascular Central Line Catheter: No (Ashly Bernstein MD R1) A/P Assessment and Plan 86-year-old female with hx of afib, CAD, pacemaker who presented from [facility] with acute onset chest pain and shortness of breath. Work-up notable for pulmonary congestion, significantly elevated BNP suggestive of acute CHF exacerbation. Will admit for possible ACS, CHF exacerbation, work-up of other possible etiologies of symptoms. Discharge Planning Possibly 12 days, pending cardiology clearance and further workup. It is possible the patient has orthostatic hypotension may require medication adjustments (Ashly Bernstein MD R1) Attending Attestation Patient seen and examined. Case reviewed and discussed with the resident team. Agree with plan of care as discussed with me and documented in the resident note. (Holly Coppola MD) Problem List: (1) Acute congestive heart failure Status: Acute Plan: Patient currently on Lasix 40 mg IV twice a day, continue today. Transition to Lasix 40 mg daily starting tomorrow. Wean O2 with goal saturation greater than 92% Continue new CHF medications as below Hospital course: * Patient without history of CHF, has multiple CAD risk factors and per daughter and Dr. Beth patient has had coronary occlusion in the past. * CXR showing cardiomegaly with pulmonary vascular congestion noted, likely contributing to symptoms, highly concerning for acute CHF exacerbation * Patient is reportedly allergic to bb's * Lasix x 1 40 mg IV in ED, initiated 40 mg IV twice a day at admission. * 2-D echocardiogram showing EF 35-40%, [id number] TR, elevated pulmonary pressure * Cardiac enzymes were trended, wnl x 3 * Oxygen by nasal cannula, titrate to goal O2 greater than 92%, still requiring * She was started on Entresto on 01/11 per cardiology. She is allergic to beta blockers so this was not initiated * KCl 20 mg PO TID also initiated per cardiology given patient is on Lasix (2) Chest pain Status: Resolved Plan: Patient had repeat CTA on 01/11, negative Reports no chest pain on 01/12, however, patient has dementia and it is difficult for her to express symptoms Continue to monitor on telemetry Cardiology following Hospital course: * 86-year-old female with hx CAD, pacemaker, afib. Presented with acute onset SOB and chest pain. Differential diagnosis includes ACS, PE, acute CHF exacerbation, PTX. * EKG showing paced rhythm without obvious ST changes * D dimer elevated to 1.42, BNP 3491 * Initial troponin 0.04, trended and stable * Normal kidney function * We have continued home aspirin Plan: Trend enzymes and EKG CT angiogram to rule out PE was fine FAISAL therapy, gets nitroglycerin patch daily at [facility] Control CHF sx as above Consulted Dr. Beth, patient is known to him - will evaluate, will start prophylactic anticoagulation (3) Pacemaker Status: Chronic Plan: Patient has a pacemaker which is 20 years old. She is being monitored as outpatient with Dr. Beth * Dr. Beth consulted, will place patient on telemetry (4) Falls frequently Status: Chronic Plan: It is notable that patient has very low diastolic BP, orthostatics pending May require medication adjustments. She is on nitroglycerin patches, Detrol LA, thyroid medication, [place], Zoloft at home, among other medications Hospital course: * She presents with an excessive history of falls, without obvious etiology, and to the falls resulting in clavicular fractures * She is previously on anticoagulation given cardiac history, however, this was discontinued as an outpatient by Dr. Beth due to falls * Elderly pts need a diastolic of 65 in order to avoid orthostatic sxs. * Will have PT evaluate pt as it is unclear exactly why she falls. * Per her daughter, she is wide awake and often ambulating when she falls flat on her face or backwards. Her daughter observed her fall multiple times and pt does not have syncope and is a poor historian so she cannot adequately explain what causes her to fall. She has a pacemaker and has no reported history of recent arrhythmias. She has fallen even with PT nearby and has not tripped over any obstruction during at least some of her falls though she did trip over a curb once. She cannot explain if she feels lightheaded or dizzy prior to falling. * PT recommending rehabilitation, patient has walker at [facility] (5) Fluids/Electrolytes/Nutrition/Prophylaxis Status: Acute Plan: Fluids: No IV fluids given overload, fluid restrict to 2L/day Electrolytes: monitor and replete as needed Nutrition: heart-healthy diet DVT Prophylaxis: Lovenox, SCDs GI Prophylaxis: not indicated Chronic medical conditions not directly addressed this Hospital stay: * Depression: Continue home dose of Zoloft (25mg) * Clavicular fracture: Subacute, sees orthopedic surgeon as outpatient, currently recommending no splint and nonweightbearing per daughter. Continue Lortab 53 25 mg every 6 when necessary * Overactive bladder: To use adult diapers as needed, avoid Latif as patient has history of UTIs, UA ordered, not performed, reordered * Hypothyroidism: Continue home dose [place] Thyroid (120mg) * Glaucoma: Continue Travatan drops (Ashly Bernstein MD R1) Problem Qualifiers (1) Acute congestive heart failure: Qualified Code: I50.9 - Acute congestive heart failure, unspecified congestive heart failure type (2) Chest pain: Qualified Code: R07.1 - Chest pain on breathing Ashly Bernstein MD R1 January 12, 2017 11:46 Holly Coppola MD January 13, 2017 12:27
--- NOTE | 2017-01-12 13:12 | PD.CARD.PN ---
Subjective Subjective Remarks Still a little SOB Objective Medications Current Medications Medications (Trade) Dose Ordered Sig/Tim Route Start Time Stop Time Status Last Admin (Narcan Inj) 0.4 mg UNSCH PRN IV 01/10/17 13:15 (NS Flush) 2 ml UNSCH PRN IV FLUSH 01/10/17 13:45 (Lasix Inj) 40 mg BID@09,18 IVP 01/10/17 18:00 01/13/17 17:59 01/12/17 10:11 (Tylenol) 650 mg Q4H PRN PO 01/10/17 13:45 (NS Flush) 2 ml BID IV FLUSH 01/10/17 21:00 01/12/17 10:11 (Entresto 24-26 Mg) 1 tab BID PO 01/10/17 16:00 01/12/17 10:11 (Lovenox Inj) 40 mg Q24H SQ 01/10/17 17:00 01/11/17 17:10 (Aspirin Chew) 81 mg DAILY CHEW 01/11/17 09:00 01/12/17 10:10 ([place] 5-325 Mg) 1 tab Q6H PRN PO 01/10/17 17:00 01/11/17 12:37 (Milk Of Magnesia Liq) 30 ml DAILY PRN PO 01/10/17 17:00 (Zoloft) 25 mg DAILY PO 01/11/17 09:00 01/12/17 10:10 ([place] Thyroid) 120 mg DAILY PO 01/11/17 09:00 01/12/17 10:10 (Pill Splitter) 1 ea UNSCH PRN OTHER 01/10/17 17:15 (Xalatan 0.005% Opth Soln) 1 drop HS EACH EYE 01/10/17 21:00 01/11/17 20:46 (Detrol La) 4 mg DAILY PO 01/11/17 09:00 01/12/17 10:11 (KCl) 20 meq TID PO 01/11/17 18:00 01/12/17 13:01 (Lasix) 40 mg DAILY PO 01/13/17 09:00 Vital Signs / I&O Vital Signs Date Time Temp Pulse Resp B/P Pulse Ox O2 Delivery O2 Flow Rate FiO2 01/12/17 08:51 95 21 01/12/17 08:00 98.0 63 20 96 01/12/17 04:00 97.6 65 18 143/66 94 01/12/17 00:00 97.0 65 17 138/63 94 01/11/17 20:00 97.2 65 18 131/61 93 01/11/17 16:52 97 21 01/11/17 16:00 96.0 65 18 126/54 93 I/O 01/11/17 01/11/17 01/11/17 01/12/17 01/12/17 01/12/17 07:00 15:00 23:00 07:00 15:00 23:00 Intake Total 120 ml 241 ml 120 ml Balance 120 ml 241 ml 120 ml Intake Oral 120 ml 120 ml 120 ml IV Total 121 ml # Voids 4 2 4 Physical Exam Alert, frail Neck: no JVD Chest clear except diminished at bases. costochondral tenderness bilaterally CV S1S2 RRR with 1/6 sys M Abd soft Ext 1+ nonpitting edema. No calf tenderness Laboratory Laboratory Tests Test 01/12/17 09:04 Sodium Level 139 MEQ/L Potassium Level 4.1 MEQ/L Chloride Level 103 MEQ/L Carbon Dioxide Level 26.8 MEQ/L Anion Gap 9 MEQ/L Blood Urea Nitrogen 21 MG/DL Creatinine 0.93 MG/DL Estimat Glomerular Filtration 57 ML/MIN Rate Random Glucose 122 MG/DL Calcium Level 8.8 MG/DL Imaging Laboratory Tests Test 01/10/17 01/10/17 01/11/17 01/12/17 11:00 23:34 07:00 09:04 Prothrombin Time 12.0 SEC Prothromb Time International 1.1 RATIO Ratio Activated Partial 26.1 SEC Thromboplast Time D-Dimer Quantitative (PE/DVT) 1.42 MG/L FEU Total Bilirubin 1.1 MG/DL Aspartate Amino Transf 28 U/L (AST/SGOT) Alanine Aminotransferase 35 U/L (ALT/SGPT) Alkaline Phosphatase 128 U/L B-Type Natriuretic Peptide 3491 PG/ML Total Protein 8.1 GM/DL Albumin 3.9 GM/DL Total Creatine Kinase 89 U/L Troponin I 0.03 NG/ML Triglycerides Level 152 MG/DL Cholesterol Level 157 MG/DL LDL Cholesterol 78 MG/DL HDL Cholesterol 48.6 MG/DL Cholesterol/HDL Ratio 3.23 RATIO Thyroid Stimulating Hormone 0.313 uIU/ML 3rd Gen White Blood Count 10.6 TH/MM3 Red Blood Count 5.32 MIL/MM3 Hemoglobin 16.7 GM/DL Hematocrit 48.8 % Mean Corpuscular Volume 91.8 FL Mean Corpuscular Hemoglobin 31.4 PG Mean Corpuscular Hemoglobin 34.2 % Concent Red Cell Distribution Width 13.7 % Platelet Count 212 TH/MM3 Mean Platelet Volume 9.6 FL Neutrophils (%) (Auto) 75.1 % Lymphocytes (%) (Auto) 12.8 % Monocytes (%) (Auto) 10.0 % Eosinophils (%) (Auto) 1.0 % Basophils (%) (Auto) 1.1 % Neutrophils # (Auto) 7.9 TH/MM3 Lymphocytes # (Auto) 1.3 TH/MM3 Monocytes # (Auto) 1.1 TH/MM3 Eosinophils # (Auto) 0.1 TH/MM3 Basophils # (Auto) 0.1 TH/MM3 CBC Comment DIFF FINAL Differential Comment Magnesium Level 1.9 MG/DL Sodium Level 139 MEQ/L Potassium Level 4.1 MEQ/L Chloride Level 103 MEQ/L Carbon Dioxide Level 26.8 MEQ/L Anion Gap 9 MEQ/L Blood Urea Nitrogen 21 MG/DL Creatinine 0.93 MG/DL Estimat Glomerular Filtration 57 ML/MIN Rate Random Glucose 122 MG/DL Calcium Level 8.8 MG/DL Assessment and Plan Problem List: (1) Acute systolic CHF (congestive heart failure) Assessment and Plan: improving (2) Pacemaker (3) Atrial fibrillation (4) Diuretic-induced hypokalemia Assessment and Plan: resolved (5) Pleuritic chest pain Assessment and Plan: no PE by CTA (6) Beta-maikel intolerance (7) Frail elderly (8) Costochondritis (9) Mitral regurgitation (10) Tricuspid regurgitation (11) Cardiomyopathy Assessment and Plan Change diuretic to PO in AM Ambrose Beth MD January 12, 2017 13:12
[2017-01-12] MEDS: ENOXAPARIN SODIUM 40 MG/0.4 ML SYRINGE SQ SCH (18:05)
[2017-01-12 18:58] LABS: BLOOD, URINE NEG (NEG); COMMENT (UR) CULT NOT INDICATED; CULTURE IF INDICATED CULT NOT INDICATED; GLUCOSE,URINE NEG (NEG); KETONE, URINE NEG (NEG); MUCUS URINE FEW /lpf (OCC); NITRITE,URINE NEG (NEG); SQUAMOUS EPITHELIAL CELL URINE 1 /hpf (0-5); URINE COLOR YELLOW (YELLW/STRAW)
[2017-01-12] MEDS: LATANOPROST 0.005% OPHT SOLN 2.5 ML BTL EACH EYE SCH (21:47)
[2017-01-13] VITALS (9 sets, daily range): BP systolic 100–132; BP diastolic 51–62; PULSE 64–79; RESP 16–18; TEMP 96.8–98; O2SAT 93–97
[2017-01-13 08:52] LABS: BICARBONATE 26.7 MEQ/L (21.0-32.0)
[2017-01-13] MEDS ORDERED: FUROSEMIDE 40 MG TAB PO SCH (09:00)
--- NOTE | 2017-01-13 09:46 | PD.CARD.PN ---
Subjective Subjective Remarks no complaints Objective Medications Current Medications Medications (Trade) Dose Ordered Sig/Tim Route Start Time Stop Time Status Last Admin (Narcan Inj) 0.4 mg UNSCH PRN IV 01/10/17 13:15 (NS Flush) 2 ml UNSCH PRN IV FLUSH 01/10/17 13:45 (Lasix Inj) 40 mg BID@09,18 IVP 01/10/17 18:00 01/13/17 17:59 01/12/17 18:04 (Tylenol) 650 mg Q4H PRN PO 01/10/17 13:45 (NS Flush) 2 ml BID IV FLUSH 01/10/17 21:00 01/12/17 21:00 (Entresto 24-26 Mg) 1 tab BID PO 01/10/17 16:00 01/12/17 21:46 (Lovenox Inj) 40 mg Q24H SQ 01/10/17 17:00 01/12/17 18:05 (Aspirin Chew) 81 mg DAILY CHEW 01/11/17 09:00 01/12/17 10:10 ([place] 5-325 Mg) 1 tab Q6H PRN PO 01/10/17 17:00 01/11/17 12:37 (Milk Of Magnesia Liq) 30 ml DAILY PRN PO 01/10/17 17:00 (Zoloft) 25 mg DAILY PO 01/11/17 09:00 01/12/17 10:10 ([place] Thyroid) 120 mg DAILY PO 01/11/17 09:00 01/12/17 10:10 (Pill Splitter) 1 ea UNSCH PRN OTHER 01/10/17 17:15 (Xalatan 0.005% Opth Soln) 1 drop HS EACH EYE 01/10/17 21:00 01/12/17 21:47 (Detrol La) 4 mg DAILY PO 01/11/17 09:00 01/12/17 10:11 (Lasix) 40 mg DAILY PO 01/13/17 09:00 (Aldactone) 25 mg DAILY PO 01/13/17 09:00 Vital Signs / I&O Vital Signs Date Time Temp Pulse Resp B/P Pulse Ox O2 Delivery O2 Flow Rate FiO2 01/13/17 04:00 97.0 65 16 132/60 96 01/13/17 00:00 97.0 64 16 131/62 96 01/12/17 20:14 65 01/12/17 20:00 96.6 65 17 124/58 96 01/12/17 16:00 98.4 64 16 127/68 96 140/64 01/12/17 12:00 98.0 64 139/57 94 I/O 01/12/17 01/12/17 01/12/17 01/13/17 01/13/17 01/13/17 07:00 15:00 23:00 07:00 15:00 23:00 Intake Total 120 ml 480 ml 240 ml 240 ml Output Total 90 ml Balance 120 ml 480 ml 150 ml 240 ml Intake Oral 120 ml 480 ml 240 ml 240 ml Output Urine Total 90 ml # Voids 4 6 1 2 Physical Exam Alert, frail, cannot sit up without assistance Neck: no JVD Chest clear to auscultation and percussion CV S1S2 RRR with 1/6 sys M Abd soft Ext no edema. No calf tenderness Laboratory Laboratory Tests Test 01/12/17 01/13/17 18:25 07:39 Urine Color YELLOW Urine Turbidity CLEAR Urine pH 5.0 Urine Specific [place] 1.014 Urine Protein NEG mg/dL Urine Glucose (UA) NEG mg/dL Urine Ketones NEG mg/dL Urine Occult Blood NEG Urine Nitrite NEG Urine Bilirubin NEG Urine Urobilinogen LESS THAN 2.0 MG/DL Urine Leukocyte Esterase NEG Urine RBC 1 /hpf Urine WBC 1 /hpf Urine Squamous Epithelial 1 /hpf Cells Urine Mucus FEW /lpf Microscopic Urinalysis Comment CULT NOT INDICATED Sodium Level 141 MEQ/L Potassium Level 4.0 MEQ/L Chloride Level 105 MEQ/L Carbon Dioxide Level 26.7 MEQ/L Anion Gap 9 MEQ/L Blood Urea Nitrogen 23 MG/DL Creatinine 0.85 MG/DL Estimat Glomerular Filtration 64 ML/MIN Rate Random Glucose 101 MG/DL Calcium Level 8.8 MG/DL Assessment and Plan Problem List: (1) Acute systolic CHF (congestive heart failure) Assessment and Plan: now compensated (2) Pacemaker (3) Atrial fibrillation (4) Diuretic-induced hypokalemia (5) Pleuritic chest pain Assessment and Plan: improved (6) Beta-maikel intolerance (7) Frail elderly (8) Costochondritis (9) Mitral regurgitation (10) Tricuspid regurgitation (11) Cardiomyopathy Assessment and Plan Stable for discharge Ambrose Beth MD January 13, 2017 09:46
--- NOTE | 2017-01-13 10:16 | HHI.FPPN ---
Subjective Remarks Patient seen and examined this AM. Has been afebrile, vital signs are stable. Patient is alert, pleasant, and cooperative but is a poor historian. She does endorse pain primarily with deep palpation of both of her clavicles. Denies chest pain this morning. (Noe Buchanan MD R1) Objective Vitals Vital Signs Date Time Temp Pulse Resp B/P Pulse Ox O2 Delivery O2 Flow Rate FiO2 01/13/17 08:00 97.0 68 16 120/52 95 124/56 120/53 01/13/17 04:00 97.0 65 16 132/60 96 01/13/17 00:00 97.0 64 16 131/62 96 01/12/17 20:14 65 01/12/17 20:00 96.6 65 17 124/58 96 01/12/17 16:00 98.4 64 16 127/68 96 140/64 01/12/17 12:00 98.0 64 139/57 94 I/O 01/12/17 01/12/17 01/12/17 01/13/17 01/13/17 01/13/17 07:00 15:00 23:00 07:00 15:00 23:00 Intake Total 120 ml 480 ml 240 ml 240 ml Output Total 90 ml Balance 120 ml 480 ml 150 ml 240 ml Intake Oral 120 ml 480 ml 240 ml 240 ml Output Urine Total 90 ml # Voids 4 6 1 2 (Noe Buchanan MD R1) Result Diagram: 01/11/17 0700 01/13/17 0739 Objective Remarks GENERAL: Frail-appearing elderly female, lying in bed comfortably. Pleasant and alert. Is not able to answer all questions appropriately SKIN: Warm and dry. HEAD: Atraumatic. Normocephalic. EYES: EOMI. No scleral icterus. No injection or drainage. ENT: No nasal bleeding or discharge. Mucous membranes pink and moist. NECK: Trachea midline. No JVD. CARDIOVASCULAR: Regular rate and rhythm. No murmurs, rubs, or gallops appreciated. RESPIRATORY: No accessory muscle use. Clear to auscultation b/l. Breath sounds are equal bilaterally. GASTROINTESTINAL: Abdomen soft, non-tender, nondistended. MUSCULOSKELETAL: Clavicular deformity noted bilaterally, chronic. Extremities without clubbing, cyanosis, or edema. No other obvious deformities. EXTREMITIES: 1+ pitting edema in the bilateral lower extremities. NEUROLOGICAL: Awake and alert. No obvious cranial nerve deficits. Motor grossly within normal limits. Strength 4/5 in the upper extremities. Normal speech. PSYCHIATRIC: Appropriate mood and affect; insight and judgment normal. ( Noe Buchanan MD R1) A/P Assessment and Plan 86-year-old female with hx of afib, CAD, and pacemaker who presented from her [facility] with acute onset chest pain and shortness of breath. Work-up was notable for pulmonary congestion, significantly elevated BNP suggestive of acute CHF exacerbation. Patient was admitted for possible ACS, CHF exacerbation, work-up of other possible etiologies of symptoms. Discharge Planning Patient is stable, Cardiology also cleared patient for discharge. CM assisting with [facility] (Noe Buchanan MD R1) Attending Attestation Patient seen and examined. Case reviewed and discussed with the resident team. Agree with plan of care as discussed with me and documented in the resident note. see addendum. she has orthostatic hypotension. her lasix has been cut to once per day. there is a conflict between meds for her heart and her orthostatic pressures. will try to decrease or stop meds where possible though she will need some cardiac meds. (Holly Coppola MD) Problem List: (1) Acute congestive heart failure Status: Acute Plan: Patient transitioned to Lasix 40 mg po daily Wean O2 with goal saturation greater than 92% Continue new CHF medications as below Hospital course: * Patient without history of CHF, has multiple CAD risk factors and per daughter and Dr. Beth patient has had coronary occlusion in the past. * CXR showing cardiomegaly with pulmonary vascular congestion noted, likely contributing to symptoms, highly concerning for acute CHF exacerbation * Patient is reportedly allergic to bb's * 2-D echocardiogram showing EF 35-40%, [id number] TR, elevated pulmonary pressure * Cardiac enzymes were trended, wnl x 3 * She was started on Entresto on 01/11 per cardiology * KCl 20 mg PO TID also initiated per cardiology given patient is on Lasix (2) Falls frequently Status: Chronic Plan: It is notable that patient has very low diastolic BP, orthostatics obtained today and negative for orthostatic hypotension May require medication adjustments. She is on nitroglycerin patches, Detrol LA, thyroid medication, [place], Zoloft at home, among other medications Hospital course: * She presents with an excessive history of falls, without obvious etiology however most likely from orthostasis, and to the falls resulting in clavicular fractures * She is previously on anticoagulation given cardiac history, however, this was discontinued as an outpatient by Dr. Beth due to falls * Per her daughter, she is wide awake and often ambulating when she falls flat on her face or backwards. Her daughter observed her fall multiple times and pt does not have syncope and is a poor historian so she cannot adequately explain what causes her to fall. She has a pacemaker and has no reported history of recent arrhythmias. She has fallen even with PT nearby and has not tripped over any obstruction during at least some of her falls though she did trip over a curb once. She cannot explain if she feels lightheaded or dizzy prior to falling. * PT recommending rehabilitation, patient has walker at [facility] (3) Chest pain Status: Resolved Plan: Patient had repeat CTA on 01/11, negative Patient now without any reported chest pain 01/12 and 01/13 Continue to monitor on telemetry Cardiology following, known to Dr. Beth Hospital course: * 86-year-old female with hx CAD, pacemaker, afib. Presented with acute onset SOB and chest pain. Differential diagnosis includes ACS, PE, acute CHF exacerbation, PTX. * EKG showing paced rhythm without obvious ST changes * D dimer elevated to 1.42, BNP 3491 * Initial troponin 0.04, trended and stable * Normal kidney function * We have continued home aspirin (4) Pacemaker Status: Chronic Plan: Patient has a pacemaker which is 20 years old. She is being monitored as outpatient with Dr. Beth - Dr. Beth consulted (5) Fluids/Electrolytes/Nutrition/Prophylaxis Status: Acute Plan: Fluids: No IV fluids given overload, fluid restrict to 2L/day Electrolytes: within normal limits, monitor and replete as needed Nutrition: heart-healthy diet DVT Prophylaxis: Lovenox 40 mg subq daily, SCDs GI Prophylaxis: not indicated Chronic medical conditions not directly addressed this Hospital stay: * Depression: Continue home dose of Zoloft (25mg) * Clavicular fracture: Subacute, sees orthopedic surgeon as outpatient, currently recommending no splint and nonweightbearing per daughter. Continue Lortab 53 25 mg every 6 hours when necessary for pain control * Overactive bladder: To use adult diapers as needed, avoid Latif as patient has history of UTIs, UA appears clean * Hypothyroidism: Continue home dose [place] Thyroid 120mg po daily * Glaucoma: Continue Travatan drops (Noe Buchanan MD R1) Problem Qualifiers (1) Acute congestive heart failure: Qualified Code: I50.9 - Acute congestive heart failure, unspecified congestive heart failure type (2) Chest pain: Qualified Code: R07.1 - Chest pain on breathing Noe Buchanan MD R1 January 13, 2017 10:16 Holly Coppola MD January 13, 2017 12:31 Noe Buchanan MD R1 January 13, 2017 10:16
[2017-01-13] MEDS: THYROID 60 MG TAB PO SCH (11:29)
[2017-01-13] MEDS: SACUBITRIL/VALSARTAN 24 MG-26 MG TAB PO SCH (11:29)
[2017-01-13] MEDS: ASPIRIN 81 MG CHEW TAB CHEW SCH (11:29)
[2017-01-13] MEDS: SPIRONOLACTONE 25 MG TAB PO SCH (11:29)
[2017-01-13] MEDS: SERTRALINE HCL 50 MG TAB PO SCH (11:30)
[2017-01-13] MEDS: FUROSEMIDE 40 MG TAB PO SCH (11:30)
[2017-01-13] MEDS: TOLTERODINE TARTRATE 4 MG CAP LA PO SCH (11:30)
[2017-01-13] MEDS: SODIUM CHLORIDE 0.9% FLUSH 10 ML FLUSH IV FLUSH SCH ×2 (11:31→21:06)
[2017-01-13] MEDS: POTASSIUM CHLORIDE 10 MEQ CONTROLLED RELEASE TAB PO SCH (11:39)
--- NOTE | 2017-01-13 12:24 | HHI.PR ---
Addendum to Inpatient Note Addendum Reason: Additional Documentation Additional Information performed orthostatic BPs with assistance of PT and RN lying P65 112/49 sitting P65 102/43 standing P114 84/43 Pt was markedly symptomatic on standing and was not able to sustain an upright position without assistance. She could not continue to stand until the BP was checked and had to sit down prior to the completion of the BP. She has orthostatic hypotension. will stop her detrol la and will need to cut down on all meds that effect BP. can discuss with cardiology as she has underlying heart disease but she cannot tolerate much medicine at this time. Holly Coppola MD January 13, 2017 12:24
[2017-01-13] MEDS: ENOXAPARIN SODIUM 40 MG/0.4 ML SYRINGE SQ SCH (17:27)
[2017-01-13] MEDS: LATANOPROST 0.005% OPHT SOLN 2.5 ML BTL EACH EYE SCH (21:06)
[2017-01-14] VITALS: BP 130/60; PULSE 63; RESP 17; TEMP 97.6; O2SAT 96
[2017-01-14 04:00] VITALS: BP 139/65; PULSE 80; RESP 16; TEMP 96.4; O2SAT 94
[2017-01-14 04:01] VITALS: BP 142/68; PULSE 82
[2017-01-14 04:02] VITALS: BP 157/67; PULSE 65; PULSE 85
[2017-01-14 06:13] LABS: BICARBONATE 29.6 MEQ/L (21.0-32.0); POTASSIUM 4.1 MEQ/L (3.5-5.1)
--- NOTE | 2017-01-14 07:17 | HHI.FPPN ---
Subjective Remarks No acute events overnight. Patient has been afebrile, BP 120s-150s/50s-60s over past 24 hours. Pulse WNLs. Patient does continue to endorse some dizziness when sitting up too quickly. Her only other complaint is of mild amount of pain primarily at her left clavicle. Denies any fevers, chest pain, palpitations, SOB. She states her appetite is good. No issues moving bowels or bladder. ( Noe Buchanan MD R1) Objective Vitals Vital Signs Date Time Temp Pulse Resp B/P Pulse Ox O2 Delivery O2 Flow Rate FiO2 01/14/17 04:02 85 157/67 01/14/17 04:01 82 142/68 01/14/17 04:00 96.4 80 16 139/65 94 01/14/17 00:00 97.6 63 17 130/60 96 01/13/17 20:29 97 21 01/13/17 20:00 96.8 79 18 120/56 96 01/13/17 20:00 65 01/13/17 16:00 98.0 64 18 119/59 94 01/13/17 12:00 97.0 65 18 100/54 96 01/13/17 12:00 66 109/54 01/13/17 12:00 65 101/51 01/13/17 09:00 65 01/13/17 08:00 97.0 68 16 120/52 95 124/56 120/53 01/13/17 07:35 93 21 I/O 01/13/17 01/13/17 01/13/17 01/14/17 01/14/17 01/14/17 07:00 15:00 23:00 07:00 15:00 23:00 Intake Total 240 ml 600 ml 280 ml 180 ml Balance 240 ml 600 ml 280 ml 180 ml Intake Oral 240 ml 600 ml 280 ml 180 ml # Voids 2 2 2 3 # Bowel Movements 2 0 (Noe Buchanan MD R1) Result Diagram: 01/11/17 0700 01/14/17 0450 Objective Remarks GENERAL: Frail-appearing elderly female, lying in bed comfortably. Pleasant and alert. Is able to answer all questions appropriately this morning SKIN: Warm and dry. HEAD: Atraumatic. Normocephalic. EYES: EOMI. No scleral icterus. No injection or drainage. ENT: No nasal bleeding or discharge. Mucous membranes pink and moist. NECK: Trachea midline. No JVD. CARDIOVASCULAR: Regular rate and rhythm. No murmurs, rubs, or gallops appreciated. RESPIRATORY: No accessory muscle use. Clear to auscultation b/l. Breath sounds are equal bilaterally. GASTROINTESTINAL: Abdomen soft, non-tender, nondistended. MUSCULOSKELETAL: Clavicular deformity noted bilaterally, chronic. Extremities without clubbing, cyanosis, or edema. No other obvious deformities. EXTREMITIES: 1+ pitting edema in the bilateral lower extremities. NEUROLOGICAL: Awake and alert. No obvious cranial nerve deficits. Motor grossly within normal limits. Strength 4/5 in the upper extremities. Normal speech. PSYCHIATRIC: Appropriate mood and affect; insight and judgment normal. ( Noe Buchanan MD R1) A/P Assessment and Plan 86-year-old female with hx of afib, CAD, and pacemaker who presented from her [facility] with acute onset chest pain and shortness of breath. Work-up was notable for pulmonary congestion, significantly elevated BNP suggestive of acute CHF exacerbation. Patient was admitted for possible ACS, CHF exacerbation, work-up of other possible etiologies of symptoms. Discharge Planning Stable for discharge today; cardiology also cleared patient for discharge. ( Noe Buchaann MD R1) Attending Attestation Patient seen and examined. Case reviewed and discussed with the resident team. Agree with plan of care as discussed with me and documented in the resident note. (Holly Coppola MD) Problem List: (1) Acute congestive heart failure Status: Acute Plan: Patient transitioned to Lasix 40 mg po daily Wean O2 with goal saturation greater than 92% Continue new CHF medications as below Hospital course: * Patient without history of CHF, has multiple CAD risk factors and per daughter and Dr. Beth patient has had coronary occlusion in the past. * CXR showing cardiomegaly with pulmonary vascular congestion noted, likely contributing to symptoms, highly concerning for acute CHF exacerbation * Patient is reportedly allergic to bb's * 2-D echocardiogram showing EF 35-40%, [id number] TR, elevated pulmonary pressure * Cardiac enzymes were trended, wnl x 3 * She was started on Entresto on 01/11 per cardiology; discontinued following low BPs and started on Valsartan 40 mg po BID per cardiology * KCl 20 mg PO TID also initiated per cardiology given patient is on Lasix (2) Falls frequently Status: Chronic Plan: It is notable that patient has very low diastolic BP, orthostatic vitals were obtained which were positive Hospital course: * She presents with an excessive history of falls, without obvious etiology however most likely from orthostasis, and to the falls resulting in clavicular fractures * She is previously on anticoagulation given cardiac history, however, this was discontinued as an outpatient by Dr. Beth due to falls * Per her daughter, she is wide awake and often ambulating when she falls flat on her face or backwards. Her daughter observed her fall multiple times and pt does not have syncope and is a poor historian so she cannot adequately explain what causes her to fall. She has a pacemaker and has no reported history of recent arrhythmias. She has fallen even with PT nearby and has not tripped over any obstruction during at least some of her falls though she did trip over a curb once. She cannot explain if she feels lightheaded or dizzy prior to falling. * PT recommending rehabilitation, patient has walker at [facility] (3) Chest pain Status: Resolved Plan: Patient had repeat CTA on 01/11, negative Patient now without any reported chest pain 01/12 and 01/13 Continue to monitor on telemetry Cardiology following, known to Dr. Beth Hospital course: * 86-year-old female with hx CAD, pacemaker, afib. Presented with acute onset SOB and chest pain. Differential diagnosis includes ACS, PE, acute CHF exacerbation, PTX. * EKG showing paced rhythm without obvious ST changes * D dimer elevated to 1.42, BNP 3491 * Initial troponin 0.04, trended and stable * Normal kidney function * We have continued home aspirin (4) Pacemaker Status: Chronic Plan: Patient has a pacemaker which is 20 years old. She is being monitored as outpatient with Dr. Beth - Dr. Beth consulted (5) Fluids/Electrolytes/Nutrition/Prophylaxis Status: Acute Plan: Fluids: No IV fluids given overload, fluid restrict to 2L/day Electrolytes: within normal limits Nutrition: heart-healthy diet DVT Prophylaxis: Lovenox 40 mg subq daily, SCDs GI Prophylaxis: not indicated Chronic medical conditions not directly addressed this Hospital stay: * Depression: Continue home dose of Zoloft (25mg) * Clavicular fracture: Subacute, sees orthopedic surgeon as outpatient, currently recommending no splint and nonweightbearing per daughter. Continue Lortab 53 25 mg every 6 hours when necessary for pain control * Overactive bladder: To use adult diapers as needed, avoid Latif as patient has history of UTIs, UA appears clean * Hypothyroidism: Continue home dose [place] Thyroid 120mg po daily * Glaucoma: Continue Travatan drops (Noe Buchanan MD R1) Problem Qualifiers (1) Acute congestive heart failure: Qualified Code: I50.9 - Acute congestive heart failure, unspecified congestive heart failure type (2) Chest pain: Qualified Code: R07.1 - Chest pain on breathing Noe Buchanan MD R1 January 14, 2017 07:17 Holly Coppola MD January 20, 2017 09:02
[2017-01-14 08:00] VITALS: BP 140/68; PULSE 64; RESP 16; TEMP 97.6; O2SAT 95
[2017-01-14] MEDS ORDERED: VALSARTAN 40 MG TAB PO SCH (09:00)
[2017-01-14] MEDS: ACETAMINOPHEN/HYDROcodone 325 MG/5 MG TAB PO PRN (09:28)
[2017-01-14] MEDS: SPIRONOLACTONE 25 MG TAB PO SCH (09:28)
[2017-01-14] MEDS: SERTRALINE HCL 50 MG TAB PO SCH (09:29)
[2017-01-14] MEDS: ASPIRIN 81 MG CHEW TAB CHEW SCH (09:29)
[2017-01-14] MEDS: FUROSEMIDE 40 MG TAB PO SCH (09:29)
[2017-01-14] MEDS: THYROID 60 MG TAB PO SCH (09:29)
[2017-01-14] MEDS: SODIUM CHLORIDE 0.9% FLUSH 10 ML FLUSH IV FLUSH SCH (09:30)
[2017-01-14] MEDS: POTASSIUM CHLORIDE 10 MEQ CONTROLLED RELEASE TAB PO SCH (09:30)
[2017-01-14] MEDS ORDERED: FURO40TA PO (10:30)
[2017-01-14] MEDS ORDERED: Spironolactone PO (10:30)
[2017-01-14] MEDS ORDERED: DIOV40TA PO (10:30)
[2017-01-14] MEDS ORDERED: OXYGENTANK NAS.CANULA (10:32)
--- NOTE | 2017-01-14 10:35 | HHI.DCPOC ---
Discharge Care Plan Diagnosis: (1) CHF (congestive heart failure) (2) Falls frequently (3) Orthostatic hypotension Goals to Promote Your Health * To prevent worsening of your condition and complications, and to maintain your health at the optimal level follow up with your primary care doctor and stock analyst. Directions to Meet Your Goals Take your medications as prescribed Follow your dietary instruction Follow activity as directed Keep your appointments as scheduled Take your immunizations and boosters as scheduled If your symptoms worsen call your PCP, if no PCP go to Urgent Care Center or Emergency Room Smoking is Dangerous to Your Health. Avoid second hand smoke Call the 24-hour hour crisis hotline for domestic abuse at Noe Buchanan MD R1 January 14, 2017 10:35
[2017-01-14 12:00] VITALS: BP 135/62; PULSE 70; RESP 16; TEMP 97.2; O2SAT 94
--- NOTE | 2017-01-14 16:34 | HHI.DS ---
Discharge Summary Admission Date January 10, 2017 at 12:38 Discharge Date: January 14, 2017 Admitting Diagnosis congestive heart failure (1) Acute congestive heart failure Diagnosis: Principal Plan: Patient transitioned to Lasix 40 mg po daily Wean O2 with goal saturation greater than 92% Continue new CHF medications as below Hospital course: * Patient without history of CHF, has multiple CAD risk factors and per daughter and Dr. Beth patient has had coronary occlusion in the past. * CXR showing cardiomegaly with pulmonary vascular congestion noted, likely contributing to symptoms, highly concerning for acute CHF exacerbation * Patient is reportedly allergic to bb's * 2-D echocardiogram showing EF 35-40%, hgsbmkbi-[id number] TR, elevated pulmonary pressure * Cardiac enzymes were trended, wnl x 3 * She was started on Entresto on 01/11 per cardiology; discontinued following low BPs and started on Valsartan 40 mg po BID per cardiology * KCl 20 mg PO TID also initiated per cardiology given patient is on Lasix (2) Falls frequently Diagnosis: Principal Plan: It is notable that patient has very low diastolic BP, orthostatic vitals were obtained which were positive Hospital course: * She presents with an excessive history of falls, without obvious etiology however most likely from orthostasis, and to the falls resulting in clavicular fractures * She is previously on anticoagulation given cardiac history, however, this was discontinued as an outpatient by Dr. Beth due to falls * Per her daughter, she is wide awake and often ambulating when she falls flat on her face or backwards. Her daughter observed her fall multiple times and pt does not have syncope and is a poor historian so she cannot adequately explain what causes her to fall. She has a pacemaker and has no reported history of recent arrhythmias. She has fallen even with PT nearby and has not tripped over any obstruction during at least some of her falls though she did trip over a curb once. She cannot explain if she feels lightheaded or dizzy prior to falling. * PT recommending rehabilitation, patient has walker at [facility] (3) Chest pain Diagnosis: Principal Plan: Patient had repeat CTA on 01/11, negative Patient now without any reported chest pain 01/12 and 01/13 Continue to monitor on telemetry Cardiology following, known to Dr. Beth Hospital course: * 86-year-old female with hx CAD, pacemaker, afib. Presented with acute onset SOB and chest pain. Differential diagnosis includes ACS, PE, acute CHF exacerbation, PTX. * EKG showing paced rhythm without obvious ST changes * D dimer elevated to 1.42, BNP 3491 * Initial troponin 0.04, trended and stable * Normal kidney function * We have continued home aspirin (4) Pacemaker Diagnosis: Secondary Plan: Patient has a pacemaker which is 20 years old. She is being monitored as outpatient with Dr. Beth - Dr. Beth consulted (5) Fluids/Electrolytes/Nutrition/Prophylaxis Diagnosis: Secondary Plan: Fluids: No IV fluids given overload, fluid restrict to 2L/day Electrolytes: within normal limits Nutrition: heart-healthy diet DVT Prophylaxis: Lovenox 40 mg subq daily, SCDs GI Prophylaxis: not indicated Chronic medical conditions not directly addressed this Hospital stay: * Depression: Continue home dose of Zoloft (25mg) * Clavicular fracture: Subacute, sees orthopedic surgeon as outpatient, currently recommending no splint and nonweightbearing per daughter. Continue Lortab 53 25 mg every 6 hours when necessary for pain control * Overactive bladder: To use adult diapers as needed, avoid Latif as patient has history of UTIs, UA appears clean * Hypothyroidism: Continue home dose Neshkoro Thyroid 120mg po daily * Glaucoma: Continue Travatan drops [facility] Cardiology Brief History Ms Ulloa is an 86 year old female with a history of CAD, atrial fibrillation, pacemaker, who presented with chest pain and acute onset SOB, starting yesterday or the day before. History also obtained from daughter. Patient states she was brought to ED by her daughter. The chest pain is described non- specifically, "it just hurt." The pain located mid-chest, substernal. It does not radiate. It is difficult to understand chronicity by patient's history; she states it was constant but denies the pain now. Pt is poor historian as she has some underlying dementia. CHF symptoms are noted; specifically she endorses a few days of orthopnea and non-productive cough with sore throat. She has chronic LE edema which might have worsened. She had a pacemaker placed decades ago due to atrial fibrillation for which she sees Dr. Beth. She also had coronary artery blockage in the past which was medically managed per daughter. She was previously on Eliquis, now just taking 81 mg aspirin. No history of CHF per daughter. She has also been less ambulatory due to clavicular fracture, being managed non- operatively as outpatient, currently not required to be in brace. Pain management is PRN Tylenol and Percocet, which she takes rarely. AKHIL Ordonezcyril. Was at [facility] until 01/02 She has also had some physical decline in and has had multiple falls since 2015. Once at airport February 29, 2016. June 2016 had a fall at home--right collarbone fx non-operative. She was dropped in PT at rehab --facial trauma, no fx. Memory loss since then. At [facility], has fallen back on head and back-- > moved to [place] by daughter. Fell at [facility] and broke left collarbone. Multiple CTs of the head after falls, and she has a neurologist, Dr. Sal on [facility] who has done extensive work-up, notable for mild dementia. PCP Dr. Pranay Fischer in [facility] is Rehab doc(?), took off five meds due to polypharmacy, unknown which ones, three weeks ago, one was HCTZ, was not on Lasix. Patient did also report that she wanted to while on the phone with her daughter yesterday; daughter notes she has depression and is on PO meds for this , and patient denies depressed mood and wanting to today. She is on Zoloft daily. Today, her daughter was not in the room so pt at baseline not great historian and unreliable. Pt stated she felt better with her breathing and pedal edema today. Per her daughter she did not admit that she had any chest pain at her SNF as she was "afraid to tell her daughter". It is difficult to know if pt is improving well as she has her own agenda when imparting information and is only mainly more open with her daughter only. CBC/BMP: 01/11/17 0700 01/14/17 0450 Significant Findings Laboratory Tests Test 01/12/17 01/12/17 01/13/17 01/14/17 09:04 18:25 07:39 04:50 Blood Urea Nitrogen 21 MG/DL (7-18) 23 MG/DL (7-18) 29 MG/DL (7-18) Estimat Glomerular Filtration 57 ML/MIN (>89) 64 ML/MIN (>89) 60 ML/MIN (>89) Rate Random Glucose 122 MG/DL (74-106) Urine Mucus FEW /lpf (OCC) PE at Discharge GENERAL: Frail-appearing elderly female, lying in bed comfortably. Pleasant and alert. Is able to answer all questions appropriately this morning SKIN: Warm and dry. HEAD: Atraumatic. Normocephalic. EYES: EOMI. No scleral icterus. No injection or drainage. ENT: No nasal bleeding or discharge. Mucous membranes pink and moist. NECK: Trachea midline. No JVD. CARDIOVASCULAR: Regular rate and rhythm. No murmurs, rubs, or gallops appreciated. RESPIRATORY: No accessory muscle use. Clear to auscultation b/l. Breath sounds are equal bilaterally. GASTROINTESTINAL: Abdomen soft, non-tender, nondistended. MUSCULOSKELETAL: Clavicular deformity noted bilaterally, chronic. Extremities without clubbing, cyanosis, or edema. No other obvious deformities. EXTREMITIES: 1+ pitting edema in the bilateral lower extremities. NEUROLOGICAL: Awake and alert. No obvious cranial nerve deficits. Motor grossly within normal limits. Strength 4/5 in the upper extremities. Normal speech. PSYCHIATRIC: Appropriate mood and affect; insight and judgment normal. Hospital Course Patient was continued on Lasix IV and transitioned to lasix 40 mg po daily prior to discharge. Cardiology was consulted as patient is known to Dr. eBth. She was started on Entresto by cardiolody however this was discontinued following low persistently low BPs and orthostatic symptoms. She was switched to Valsartan 40 mg po BID per cardiology. She has a CTA during this hospitalization that was negative for a pulmonary embolism. She also has a history of many frequent falls, resulting in clavicular fractures, that are likely due to orthostatic hypotension and likely also due to loss of strength and she will need continued rehab following discharge also recommended by PT. Her 2-D echocardiogram obtained this hospitalization showed an EF of 35-40%, zfgwsdjb-[id number] TR, as well as elevated pulmonary pressure. Patient will need follow up with her tax auditor and would benefit from maintaining a diastolic of 65 mmHg or higher which may help prevent future falls. Pt Condition on Discharge: Stable Discharge Disposition: Discharge to SNF Discharge Instructions DIET: Follow Instructions for: Heart Healthy Diet Activities you can perform: See Additionl Instruction Other Activity Instructions: Per PT recommendations, patient should be out of bed with assistance only as she is high fall risk. Follow up Referrals: Cardiology - 1 Week with Ambrose Beth MD PCP Follow-up - 1 Week New Orders: BASIC METABOLIC PROF - 3-5 Days New Medications: Oxygen tank (Oxygen tank) 1 Ea Tank 2 LITER FLORENCIO.CANULA CONTINUOUS Oxygen Concentrator Portable Gaseous 2 L/min via Nasal Cannula Continuous For 99 months HYPOXEMIA PREVENTION #1 CYLINDER Furosemide (Furosemide) 40 Mg Tab 40 MG PO DAILY #30 TAB Valsartan (Diovan) 40 Mg Tab 40 MG PO BID #60 TAB ([Spironolactone]) 25 MG TAB 25 MG PO DAILY #30 TAB Continued Medications: Acetaminophen (Mapap) 500 Mg Tab 500 MG PO BID PAIN Ref 2 TAB Acetaminophen (Mapap) 325 Mg Tab 325 MG PO Q4-6H PRN PAIN 1 TO 10 AND/OR AGITATION #2 Ref 0 TAB Aspirin (Aspirin) 81 Mg Chew 81 MG CHEW DAILY Ref 0 TAB Fesoterodine ER (Toviaz ER) 4 mg Linnea 4 MG PO DAILY Overactive bladder #30 Ref 0 TAB Hydrocodone-Acetaminophen (Lortab) 5-325 Mg Tab 1 TAB PO Q6H PRN PAIN Ref 0 TAB Lidocaine Patch 12 HR (Lidocaine Patch 12 HR) 5 % Patch 1 PATCH TOPICAL DAILY Remove patch after 12 hours PRN PAIN #1 Ref 0 BOX Magnesium Hydroxide Liq (Milk of Magnesia Liq) 400 Mg/5 Ml Susp 30 ML PO DAILY PRN INDIGESTION OR UPSET STOMACH #1 Ref 0 BOTTLE Sertraline (Zoloft) 25 Mg Tab 25 MG PO DAILY #30 Ref 0 TAB Thyroid (Neshkoro Thyroid) 120 Mg Tab 120 MG PO DAILY Thyroid Supplement #30 Ref 0 TAB Travoprost Opth Drops (Travatan Z Opth Drops) 0.004 % Soln 1 DROP EACH EYE HS Glaucoma #1 Ref 0 BOTTLE Discontinued Medications: Nitroglycerin Patch 24 HR (Nitro-Dur Patch 24 HR) 0.2 Mg/Hr Patch 0.2 MG T-DERMAL DAILY Chest Pain #30 Ref 0 PATCH Noe Buchanan MD R1 January 14, 2017 16:34
== END 2017-01-14 15:20 | DRG 293 ==
LOC: NEPE 10:55 → NEDA 12:38 → HOCA 14:48
PROVIDERS: ADMIT Family Medicine; ATTEND Family Medicine
DX: I11.0 Hypertensive heart disease with heart failure (principal); F03.90 Unspecified dementia, unspecified severity, without behavioral disturbance, psychotic disturbance, mood disturbance, and anxiety; I08.1 Rheumatic disorders of both mitral and tricuspid valves; I42.9 Cardiomyopathy, unspecified; I48.2 Chronic atrial fibrillation; I50.21 Acute systolic (congestive) heart failure; I25.10 Atherosclerotic heart disease of native coronary artery without angina pectoris; K21.9 Gastro-esophageal reflux disease without esophagitis; E87.6 Hypokalemia; T50.2X5A Adverse effect of carbonic-anhydrase inhibitors, benzothiadiazides and other diuretics, initial encounter; F32.9 Major depressive disorder, single episode, unspecified; I95.1 Orthostatic hypotension; E03.9 Hypothyroidism, unspecified; H40.9 Unspecified glaucoma; R29.6 Repeated falls; M10.9 Gout, unspecified; E78.5 Hyperlipidemia, unspecified; Z87.891 Personal history of nicotine dependence; Z79.01 Long term (current) use of anticoagulants; Z95.0 Presence of cardiac pacemaker
CPT/HCPCS: 71010; 71275; 76937; 80048; 80053; 80061; 81001; 82550; 83735; 83880; 84443; 84484; 85025; 85379; 85610; 85730; 93005; 93306; 96374; J1644; J1650; J1940; J3475; Q9967

== ENCOUNTER 2017-02-03 09:44 | Day surgery (SDC) | payer MEDICARE, OTHER ==
[~2017-02-03] VITALS: Ht 162.6 cm; Wt 62.7 kg
[~2017-02-03 09:44] MED LIST changes: -APIX5TAB PO; +ARMO120T PO; +ASPI81CH CHEW; -BACT800T5 PO; +DIOV40TA PO; -DIVA250ER PO; +FURO40TA PO; +HYDR-3533 PO; -HYDR12.56 PO; -LEVO125T3 PO; +LIDO1PAD52 TOPICAL; +MAPA325T PO; +MAPA500T PO; +MILKSUS PO; -NAPR220T95 PO; -NAPR500 PO; +OXYGENTANK NAS.CANULA; +Spironolactone PO; +TOVI4TAB PO; +TRAV0.00 EACH EYE; -VITA-13 PO; +ZOLO25TA PO; -ZOLO50TA PO
[2017-02-03] MEDS ORDERED: METOPROLOL TARTRATE 25 MG TAB PO PRN (10:30)
[2017-02-03] MEDS ORDERED: CHLORHEXIDINE GLUCONATE 2 % 1 PACK (2 CLOTHS) TOPICAL SCH (10:30)
[2017-02-03] MEDS ORDERED: SODIUM CHLORID 0.9% 500 ML IV PRN (10:30)
[2017-02-03] MEDS ORDERED: POVIDONE IODINE 5% (ANTISEPSIS KIT) 4 APPLICATIONS EACH NARE PRN (10:30)
[2017-02-03] MEDS ORDERED: INSULIN HUMAN REGULAR 1,000 UNITS/10 ML VIAL SQ PRN (10:30)
[2017-02-03] MEDS ORDERED: CHLORHEXIDINE GLUCONATE 2 % 1 PACK (2 CLOTHS) TOPICAL PRN (10:30)
[2017-02-03] MEDS ORDERED: ceFAZolin 2 GM PREMIX 50 ML IV SCH (10:30)
[2017-02-03] MEDS ORDERED: POVIDONE IODINE 5% (ANTISEPSIS KIT) 4 APPLICATIONS EACH NARE SCH (10:30)
[2017-02-03] MEDS ORDERED: MUPIROCIN 2% OINT 1 APPLIC/GM SYR NASAL SCH (10:30)
[2017-02-03] MEDS ORDERED: NS 1000 ML IV SCH (10:30)
[2017-02-03] MEDS ORDERED: LACTATED RINGER'S 1000 ML IV PRN (10:30)
[2017-02-03] MEDS ORDERED: VANCOMYCIN 1000 MG/NS 250 ML IV SCH ×2 (10:30)
[2017-02-03] MEDS ORDERED: Hold AM Insulin & AM Hypoglycemic medications in diabetic patients PRN (10:30)
[2017-02-03] MEDS ORDERED: MECL-62 PO (10:41)
[2017-02-03] MEDS ORDERED: APIX2.5T PO (10:41)
[2017-02-03] MEDS ORDERED: TYLE325T PO (10:41)
[2017-02-03] MEDS ORDERED: NITR2OIN CHEST (10:41)
[2017-02-03] MEDS ORDERED: FURO20TA PO (10:41)
[2017-02-03] MEDS ORDERED: ULTR50TA5 PO (10:41)
[2017-02-03 10:43] VITALS: BP 138/60; PULSE 65; RESP 18; TEMP 97.9; O2SAT 99
[2017-02-03 11:00] LABS: AUTOMATED NEUTROPHIL # 6.9 TH/MM3 (1.8-7.7); BASOPHIL # 0.1 TH/MM3 (0-0.2); EOSINOPHIL # 0.1 TH/MM3 (0-0.4); EOSINOPHIL % 1.4 % (0.0-4.0); HEMATOCRIT 45.8 % (35.0-46.0); HEMO FLAGS DIFF FINAL; LYMPH % 16.1 % (9.0-44.0); LYMPHOCYTE # 1.5 TH/MM3 (1.0-4.8); MEAN CELL VOLUME 91.4 FL (80.0-100.0); MEAN CORPUSCULAR HGB CONC 33.9 % (32.0-36.0); MONO % 8.7 % (0.0-8.0); NEUT % 72.8 % (16.0-70.0); PLATELET COUNT 198 TH/MM3 (150-450); RED BLOOD COUNT 5.01 MIL/MM3 (4.00-5.30); RED CELL DISTRIBUTION WIDTH 13.3 % (11.6-17.2); WHITE BLOOD COUNT 9.5 TH/MM3 (4.0-11.0)
[2017-02-03] MEDS ORDERED: VANCOMYCIN 500 MG VIAL ONE (12:06)
[2017-02-03] MEDS ORDERED: LIDOCAINE HCL 2% 50 ML VIAL ONE (12:07)
[2017-02-03 12:20] LABS: BICARBONATE 26.5 MEQ/L (21.0-32.0)
[2017-02-03 12:21] LABS: APTT (PATIENT) 27.3 SEC (24.3-30.1); INTERNATIONAL NORMALIZED RATIO 1.2 RATIO; PROTHROMBIN TIME - PATIENT 12.8 SEC (9.8-11.6)
[2017-02-03] MEDS ORDERED: traMADol HCL 50 MG TAB PO PRN (13:15)
--- NOTE | 2017-02-03 13:22 | CATHPROC ---
[employer] HIS Report Study Information Study Number Admission Scheduled Start Study Start Feb 03 2017 9:44AM 02/03/2017 Feb 03 2017 10:53AM [place] Service Cardiac Pacer/ICD Admit Source Facility Department Other [facility] Physician and Clinical Staff Initial MD Beth, Ambrose Couples Therapist Bijal Smith RN Other Anesthesia, PONY EDGER Recorder Maria Del Carmen Juarez RN Scrub Vanessa Wilkinson,RT(R) TECH2 Scrub Berta Amaro RCIS Procedures Performed Procedure Location (Site) Vessel Name Pacemaker Temp Fem Vein (right) Femoral Vein Equipment Time Director Trading Description Size Mfg Part Number Used/Scraped [id number] 10:55 SOARES JUAREZ PACING CATHETER J CURVE FR 5 Used *[id number] 10:56 [employer] PACK, CCL CUSTOM * Used *[id number]-1103 10:54 [employer] SUTURE, STRIP PLUS 1/2" * Used *[id number] 10:54 [employer] PACER ADHESIVE, MASTISOL 2/3CC 2/3CC 0523-48 Used 10:54 [employer] PACER LEUNG, LIMB * 2530 *[id number] Used [id number] 10:54 [employer] PACER PACK, PACER CUSTOM * Used *[id number] 10:54 [employer] PACER PEN, SKIN DUAL W/ RULER * Used *[id number] 10:56 [facility]ATH, FR6.5 PRELUDE 11CM FR 6.5 038ACT Used *[id number] 12:24 Needle Sponge Count 1 1 Used 12:25 Needle Sponge Count 2 22 Used 12:25 Needle Sponge Count 30 1 Used [id number] *[id number] SUTURE, 2-0 VICRYL [SH] ([id number]) SUTURE, 3-0 VICRYL [SH] ([id number]) SUTURE, 4-0 MONOCRYL [PS2] (Y496G) [id number] 10:54 [employer] [employer],WARM AIR CCL * Used *[id number] [facility] PAD, ELECTROSURGICAL 10:54 * [id number] *[id number] Used SURGICAL GROUNDING ORANGE PACEMAKER, ADVISDion RICO MRI 12:43 VITATRON MEDTRONIC OEA-DDDR [id number] Used SURESCAN 12:26 [employer]IT[employer] MED[employer]ON[employer] PLASMABLADE, PEAD 3.0S * [id number] Used [id number] 10:54 [employer] JASVIR. ELECTRODE, PRO-PADZ BIPHASIC * Used *[id number] Equipment Model, Serial, Lot Number and Expiration Data Description Model Number Serial Number Lot Number Expiration Date PACEMAKER, ADVISA DR HAYES A2DR01 [id number] 06-14-2018 SURESCAN History: Allergies Allergy Reaction Beta Blockers a-fib Procainamide Hcl PT DOES NOT KNOW Quinidine Hallucinations HYDROMET SPRAYS Niacin History: Risk Factors Hypertension Dyslipidemia Yes Yes Cerebrovascular Diabetes Disease Labs Hgb (g/dl) Hct (%) RBC (MIL/MM3) WBC (l/cumm) Platelets (thousands) 12.00-18.00 37.00-55.00 4.80-6.20 4.80-10.80 140.00-450.00 15.0 45 5 9.5 198 Medication Medication Total Dose (Bolus/Oral) Medication Total Dosage/Unit 2% XYLOCAINE 100 mL Medications (Bolus/Oral) Medication Time Given Dosage/Unit Administered By Reason 2% XYLOCAINE 02/03/2017 12:22:02 PM 50 mL Ambrose Beth 50 mL 2% XYLOCAINE given in lab by Ambrose Beth in Right Groin via Subcutaneous. Ordered by Ambrose Beth. 2% XYLOCAINE 02/03/2017 12:41:09 PM 50 mL Ambrose Beth 50 mL 2% XYLOCAINE given in lab by Ambrose Beth in Left upper chest via Subcutaneous. Ordered by Ambrose Renee. Medication (Drip) Medication Time Given Dosage/Unit Concentration/Unit Diluent (ml) Solution ANCEF 02/03/2017 11:50:10 AM 2 g 2 g ANCEF given in lab by Anesthesia, PONY EDGER in Right Hand via Peripheral IV. Ordered by Ambrose Beth. Reason: As per physicians verbal order. VANCOMYCIN DRIP 02/03/2017 11:52:10 AM 1 g 1 g VANCOMYCIN DRIP given in lab by Anesthesia, PONY EDGER in Right Hand via Peripheral IV. Ordered by Ambrose Diane. Reason: As per physicians verbal order. Initial Case Assessment Initial Case Assessment Cardiovascular HR Rhythm NIBP Chest Pain 56 vpk teacher 146/66 0 Edema Present Skin color Skin None Normal Warm Dry Circulatory - Right Pulses Radial 1 Scale (0,1,2,3,4,d) Circulatory - Left Pulses Radial 1 Scale (0,1,2,3,4,d) Circulatory - Lower Extremities Color Lower Right Color Lower Left Normal Normal Neurological State Oriented to time-place- Alert Moves all extremities person Respiration - General Respiration Rate SpO2 (%) (B/min) 20 96 Final Case Assessment Cardiovascular HR Rhythm NIBP Chest Pain 70 vpk teacher 134/62 0 Edema Present Skin color Skin None Normal Warm Dry Circulatory - Right Pulses Radial 1 Scale (0,1,2,3,4,d) Circulatory - Left Pulses Radial 1 Scale (0,1,2,3,4,d) Circulatory - Lower Extremities Color Lower Right Color Lower Left Normal Normal Neurological State Oriented to time-place- Alert Moves all extremities person Respiration - General Respiration Rate SpO2 (%) O2 (lpm) (B/min) 16 100 6 Chronological Log Time Study Chronological Log 11:37:01 Patient arrived via Bed. 11:37:02 Patient Name, D.O.B, / Armband Verified By R.N. 11:37:02 Consent signed by the physician and the patient and verified by the [facility] staff. 11:37:03 Pre-op and post- op instructions given; patient acknowledges understanding of instructions. 11:37:04 Verbal Stimulation=2 Physical Stimulation=2 Airway=2 Respiration=2 TOTAL=8. (0=absent, 1=li mited, 2=present) 11:37:04 Anesthesia at bedside. Assumes care of patient. Marion RETANA 11:37:05 Patient has been NPO for More than 6Hrs. 11:37:06 Skin Breakdown- 11:37:07 Patient Warmer Placed on the Table. 11:37:08 Disposable Defibrillator Pads Placed On Patient. 11:37:09 Carola Prominences Protected 11:37:10 A # 22 IV was noted in the Hand (right). Grade = 0 0.9ns kvo 11:37:11 A # 20 IV was noted in the Forearm (left). Grade = 0 0.9ns kvo 11:37:12 History and physical on the chart or being dictated. 11:49:31 Assessment: Initial Case 11:49:41 home theatre technician present to draw labs. 11:49:52 Table restraints applied according to hospital policy 11:49:55 2% CHLORHEXIDINE GLUCONATE WASH AND NASAL SWIPE DONE PRIOR TO PROCEDURE. 11:49:57 Bovie ground pad applied to: right thigh 2 g ANCEF given in lab by Anesthesia, PONY EDGER in Right Hand via Peripheral IV. Ordered by Ambrose Beth. Reason: As per 11:50:10 physicians verbal order. 1 g VANCOMYCIN DRIP given in lab by Anesthesia, PONY EDGER in Right Hand via Peripheral IV. Ordered Ambrose Forrester. 11:52:10 Reason: As per physicians verbal order. Assessment: Initial Case, HR=56 BPM, Rhythm=vpk teacher, QADU=591/66 mmhg, Chest Pain=0, Edema=None, Col or=Normal, Skin = Warm, Dry Right Pulses: Radial=1 Left Pulses: Radial=1 11:59:07 Lower Right Extremities: Color=Normal Lower Left Extremities: Color=Normal Neurological: State=Alert, Ox3, NGUYEN Respiration: Resp=20 B/min, SpO2=96 % 12:08:50 Bilateral groins prepped with 2% chlorhexidine, and with a 3 min. waiting time. 12:18:36 MD arrived. Time Out. Correct patient, procedure, procedure equipment, site and side verified with physicia n present. Time 12:21:24 concurred by MD, individual staff and PONY EDGER. Time Out #2 - Consents verified, patient in correct position, all results are labled and displa yed, safety precautions 12:21:48 taken, antibiotics administered. Time out concurred by MD, individual staff and PONY EDGER in procedu re 12:21:58 Case Start 12:22:02 50 mL 2% XYLOCAINE given in lab by Ambrose Beth in Right Groin via Subcutaneous. Ordered Ambrose Forrester. First Sponge And Instrument Count Done by Berta Amaro RCIS. 12:24:17 Hypo's: 1, Sponges: 30, Bovie/scratch: 2 Sutures: 3, Blades: 2, Instruments: 26, Syveck Patches: ~SYVECK PATCH~ plasma blade. verifed w MM 12:26:21 Vascular access was obtained in the Subclav. Vein (Lft. 12:26:27 Wire inserted A SHEATH, FR6.5 PRELUDE 11CM FR 6.5 was advanced into the Fem Vein (right) using the Modified Meeta grande 12:26:33 technique. 12:29:24 A PACING CATHETER J CURVE FR 5 was advanced to the right ventricle. Rate = 80, Output = 10, MA = ~MA~. 12:31:53 Left Upper Chest Prepped Times Two. 12:41:09 50 mL 2% XYLOCAINE given in lab by Ambrose Beth in Left upper chest via Subcutaneous. Orde red by Ambrose Beth. 12:42:01 Surgical Incision Made. 12:42:39 A device was explanted. 12:45:43 A PACEMAKER, NICOLA STRANGE OEA-DDDR was connected and placed in the pocket. 12:45:58 Implant Procedure was performed. 12:46:05 A PPM Implant . (Dual) Gen change 12:48:51 Pocket flushed with antibiotic solution Second Sponge And Instrument Count Done by Berta Amaro RCIS. 12:52:39 Hypo's: 1, Sponges: 30, Bovie/scratch: 2 Sutures: 3, Blades: 2, Instruments: 26, Syveck Patches: ~SYVECK PATCH~ Verifed w 13:07:42 The pocket was closed. Final Sponge And Instrument Count Done by Berta Amaro RCIS. 13:10:04 Hypo's: 1, Sponges: 30, Bovie/scratch: 2 Sutures: 3, Blades: 2, Instruments: 26, Syveck Patches: ~SYVECK PATCH~ plasma blade. verifed w MM 13:13:08 Sheath removed; pressure applied to access site by 13:15:44 Case End Assessment: Final Case, HR=70 BPM, Rhythm=vpk teacher, SLYC=952/62 mmhg, Chest Pain=0, Edema=None, [place] r=Normal, Skin = Warm, Dry Right Pulses: Radial=1 Left Pulses: Radial=1 13:19:55 Lower Right Extremities: Color=Normal Lower Left Extremities: Color=Normal Neurological: State=Alert, Ox3, NGUYEN Respiration: Resp=16 B/min, BiM8=135 %, O2=6 lpm 13:20:49 No case complications noted. 13:21:42 DOCU called. Spoke to Leland 13:22:02 Bedside Report will be given. 13:24:45 Sterile dressing applied to sites 13:30:00 Patient moved to stretcher End Study - Contrast Media Used In Study Contrast Total Opened (mL) Total Used (mL) Total Wasted (mL) Unspecified 0 0 0 End Study - Radiation Exposure Fluoro Time (minutes) 0.4 End Study - Sheaths Sheaths Pulled By Sheath Hold Time (min) Vanessa Wilkinson 10 End Study - Patient Disposition Complications Transferred To Interventional Outcome No Telemetry Bed successful
[2017-02-03] MEDS ORDERED: PROPOFOL 200 MG/20 ML AMP IV ONE (14:56)
--- NOTE | 2017-02-04 10:39 | MP ---
cc: SAULO MONIQUE M.D. DATE OF SURGERY 02/03/2017 PROCEDURE PERFORMED Permanent pacemaker implant PREOPERATIVE DIAGNOSIS Pacemaker generator end-of-life. POSTOPERATIVE DIAGNOSIS Pacemaker generator end-of-life. PROCEDURE Insertion of temporary transvenous pacemaker via the right femoral vein, explantation of old pacemaker generator, implantation of new pacemaker generator. DESCRIPTION OF PROCEDURE The patient was brought to the cardiac laboratory courier in a fasting state. She was sedated by Anesthesia. Using 1% lidocaine for local anesthesia, a 6-Korean sheath was inserted in the right femoral vein. Through this, a temporary pacemaker was inserted in the right ventricle with backup pacing initiated. Next, I rescrubbed and draped in a sterile fashion. Using 1% lidocaine for local anesthesia, an incision was made parallel to and over the left infraclavicular pacemaker. Using a blunt and sharp dissection, the generator was freed from the pocket, the leads were disconnected and tested. The leads were then connected to the new pacemaker generator which was then positioned on the floor of the pocket and was irrigated with antibiotic solution and then I closed it in layers using three interrupted 2-0 Vicryl stay sutures for deep fascial layers, interrupted, 3-0 Vicryl sutures times five for subcutaneous stitches and then a running 4-0 Monocryl stitch and then Steri-Strips and a 4x4 dressing. ESTIMATED BLOOD LOSS 5 cc COMPLICATIONS There were no complications. The temporary pacemaker is now removed. COMPONENTS The pacemaker is a Medtronic A2DR01, serial number [id number]. The atrial lead is a model 5554 serial number [id number]. The ventricular lead is a serial number [id number] with a threshold of 0.5 volts, impedance of 561 ohms. Pacemaker is programmed VVIR. We will discharge home later today. MD VIANEY Nina/HELIO /1:14 PM /10:34 AM
--- NOTE | 2017-02-04 21:50 | EKG ---
Date Performed: 02/03/2017 Time Performed: 10:45:38 PTAGE: 86 years EKG: Ventricular pacing. Pacemaker rhythm - no further analysis Since previous tracing, no signi ficant change noted Abnormal ECG PREVIOUS TRACING : 01/10/2017 22.42 DOCTOR: Kahlil Maria Interpretating Date/Time 02/04/2017 21:49:24
== END 2017-02-03 16:44 ==
LOC: HDOC 09:44 → HDIC 09:48 → HDOC 16:44
PROVIDERS: ATTEND Internal Medicine Cardiovascular Disease
DX: Z45.010 Encounter for checking and testing of cardiac pacemaker pulse generator [battery] (principal); I50.9 Heart failure, unspecified; I25.119 Atherosclerotic heart disease of native coronary artery with unspecified angina pectoris; I48.2 Chronic atrial fibrillation; I48.91 Unspecified atrial fibrillation; I10 Essential (primary) hypertension; E78.5 Hyperlipidemia, unspecified; M10.9 Gout, unspecified; K21.9 Gastro-esophageal reflux disease without esophagitis; Z01.810 Encounter for preprocedural cardiovascular examination; Z01.818 Encounter for other preprocedural examination; Z86.73 Personal history of transient ischemic attack (TIA), and cerebral infarction without residual deficits
CPT/HCPCS: 33210; 33228; 80048; 85025; 85610; 85730; 93005; C1785; J0690; J3370; J7050

== ENCOUNTER 2017-03-02 09:49 | Emergency (ER) | payer MEDICARE, OTHER ==
[~2017-03-02] VITALS: Ht 170.2 cm; Wt 60.0 kg
[~2017-03-02 09:49] MED LIST changes: +APIX2.5T PO; +FURO20TA PO; -FURO40TA PO; -HYDR-3533 PO; -MAPA325T PO; +MECL-62 PO; +NITR2OIN CHEST; +TYLE325T PO; +ULTR50TA5 PO
[2017-03-02 09:57] VITALS: BP 149/66; PULSE 73; RESP 17; TEMP 97.8; O2SAT 96
[2017-03-02] MEDS ORDERED: LEVO.1 PO (10:16)
[2017-03-02] MEDS ORDERED: OXYB5TAB PO (10:16)
[2017-03-02] MEDS ORDERED: ZOLO25TA PO (10:16)
[2017-03-02] MEDS ORDERED: LOSA25TA PO (10:16)
[2017-03-02] MEDS ORDERED: PROT40TA PO (10:16)
[2017-03-02 10:25] VITALS: O2SAT 96
[2017-03-02] MEDS ORDERED: SODIUM CHLORIDE 0.9% FLUSH 10 ML FLUSH IVF PRN (10:30)
--- NOTE | 2017-03-02 10:30 | RADRPT ---
EXAM DATE/TIME: 03/02/2017 10:26 [place] COMPARISON: CHEST SINGLE AP, January 10, 2017, 11:07. INDICATIONS : Chest pain MEDICAL HISTORY : Myocardial infarction. SURGICAL HISTORY : Pacemaker. ENCOUNTER: Initial ACUITY: 1 day PAIN SCORE: 0/10 LOCATION: Bilateral chest FINDINGS: Cardiomegaly. Pacer device from a left subclavian transvenous approach again seen. There is one lead which appears disconnected or remnant lead from previous pacer. This should be correlated with clinic al history. Aortic calcification. Lungs are clear. CONCLUSION: No acute disease. Dominic Pearson MD on March 02, 2017 at 10:26 Board Certified Radiologist. This report was verified electronically.
--- NOTE | 2017-03-02 10:37 | PD ---
HPI Chief Complaint: Cardiac Complaint Time Seen by Provider: 10:12 Travel History International Travel<30 days: No Contact w/Intl Traveler<30days: No Traveled to known affect area: No History of Present Illness HPI This is an 87-year-old female who does have a history of coronary artery disease who recently had a pacemaker placed 3 weeks ago who presents to the emergency department reportedly having told her shelter that she was having chest pain. She received an aspirin and then her chest pain improved. Here in the emergency department she's not sure why she is here. She has no pain and has no complaints. PFSH Past Medical History Hx Anticoagulant Therapy: Yes (ELAQUIST) Atrial Fibrillation: Yes Heart Rhythm Problems: Yes Cancer: Yes (SKIN) Cardiovascular Problems: Yes (CAD, PM, A-FIB) Chest Pain: No Cerebrovascular Accident: Yes (TIA AGE 52) Coronary Artery Disease: Yes Diabetes: No Diminished Hearing: No Gastrointestinal Disorders: Yes (GERD) GERD: Yes Glaucoma: Yes (L EYE) Hepatitis: No Hiatal Hernia: No Hypertension: No Integumentary: No Immunizations Current: Yes Seizures: Yes (ABNORMAL EEG) Thyroid Disease: Yes (HYPOTHYROID) Tetanus Vaccination: < 5 Years ?: Not Menopausal: Yes Past Surgical History Body Medical Devices: pacemaker Cardiac Surgery: Yes (Ablation, pacemaker) Cholecystectomy: Yes Endocrine Surgery: Yes (THYROID REMOVED) Eye Surgery: Yes (BILATERAL CATARACT SURGERY) Hysterectomy: Yes Pacemaker: Yes (medtronic) Thoracic Surgery: Yes (PM INSERT) Social History Alcohol Use: No Tobacco Use: No Substance Use: No Allergies-Medications (Allergen,Severity, Reaction): Coded Allergies: Beta Blockers (Verified Allergy, Severe, a-fib, 03/02/17) Niacin (Verified Allergy, Severe, 03/02/17) Quinidine (Verified Allergy, Severe, Hallucinations, 03/02/17) Procainamide Hcl (Verified Allergy, Unknown, PT DOES NOT KNOW, 03/02/17) Uncoded Allergies: HYDROMET SPRAYS (Allergy, Unknown, 05/16/10) Reported Meds & Prescriptions Reported Meds & Active Scripts Active [Spironolactone] 25 MG Tab 25 Mg PO DAILY Reported Zoloft (Sertraline HCl) 25 Mg Tab 25 Mg PO DAILY Synthroid (Levothyroxine Sodium) 100 Mcg Tab 100 Mcg PO DAILY Protonix (Pantoprazole Sodium) 40 Mg Tab 40 Mg PO DAILY Oxybutynin ER 24 HR (Oxybutynin Chloride) 5 Mg Tab 5 Mg PO DAILY Losartan (Losartan Potassium) 25 Mg Tab 25 Mg PO DAILY Meclizine (Meclizine HCl) 25 Mg Tab 25 Mg PO BID PRN Furosemide 20 Mg Tab 20 Mg PO DAILY Lidocaine Patch 12 HR (Lidocaine) 5 % Patch 1 Patch TOPICAL DAILY PRN Remove patch after 12 hours Aspirin 81 Mg Chew 81 Mg CHEW DAILY Travatan Z Opth Drops (Travoprost) 0.004 % Soln 1 Drop EACH EYE HS Mapap (Acetaminophen) 500 Mg Tab 500 Mg PO BID Review of Systems Except as stated in HPI: all other systems reviewed are Neg Physical Exam Narrative GENERAL:Well appearing, no acute distress SKIN: Focused skin assessment warm and dry. HEAD: Atraumatic. Normocephalic. EYES: Pupils equal and round. No injection or drainage. ENT: Moist mucous membranes NECK: Trachea midline. CARDIOVASCULAR: Regular rate and rhythm. No murmur appreciated. Pacemaker pocket is well healing. RESPIRATORY: Clear to auscultation. Breath sounds equal bilaterally. GASTROINTESTINAL: Abdomen soft, non-tender, nondistended. MUSCULOSKELETAL: No obvious deformities. NEUROLOGICAL: Oriented to person, knows that she is in a hospital, not oriented to year, answers most questions with "I don't know". No obvious cranial nerve deficits. Moving all extremities. PSYCHIATRIC: Appropriate mood and affect; insight and judgment normal. Data Data Last Documented VS Vital Signs Date Time Temp Pulse Resp B/P Pulse Ox O2 Delivery O2 Flow Rate FiO2 03/02/17 11:12 69 16 136/61 97 Room Air 03/02/17 09:57 97.8 Orders Electrocardiogram (03/02/17 10:16) Basic Metabolic Panel (Bmp) (03/02/17 10:16) Complete Blood Count With Diff (03/02/17 10:16) Troponin I (03/02/17 10:16) Chest, Single Ap (03/02/17 10:16) Ecg Monitoring (03/02/17 10:16) Bilateral Bp Monitoring (03/02/17 10:16) Iv Access Insert/Monitor (03/02/17 10:16) Oximetry (03/02/17 10:16) Oxygen Administration (03/02/17 10:16) Sodium Chloride 0.9% Flush (Ns Flush) (03/02/17 10:30) Ed Poc Ultrasound (03/02/17 ) Troponin I (03/02/17 12:31) Labs Laboratory Tests Test 03/02/17 03/02/17 10:22 12:45 White Blood Count 9.8 TH/MM3 Red Blood Count 5.10 MIL/MM3 Hemoglobin 15.8 GM/DL Hematocrit 45.3 % Mean Corpuscular Volume 88.9 FL Mean Corpuscular Hemoglobin 31.0 PG Mean Corpuscular Hemoglobin 34.9 % Concent Red Cell Distribution Width 13.2 % Platelet Count 230 TH/MM3 Mean Platelet Volume 8.9 FL Neutrophils (%) (Auto) 74.7 % Lymphocytes (%) (Auto) 15.5 % Monocytes (%) (Auto) 7.3 % Eosinophils (%) (Auto) 1.5 % Basophils (%) (Auto) 1.0 % Neutrophils # (Auto) 7.4 TH/MM3 Lymphocytes # (Auto) 1.5 TH/MM3 Monocytes # (Auto) 0.7 TH/MM3 Eosinophils # (Auto) 0.1 TH/MM3 Basophils # (Auto) 0.1 TH/MM3 CBC Comment DIFF FINAL Differential Comment Sodium Level 139 MEQ/L Potassium Level 4.4 MEQ/L Chloride Level 104 MEQ/L Carbon Dioxide Level 28.8 MEQ/L Anion Gap 6 MEQ/L Blood Urea Nitrogen 18 MG/DL Creatinine 0.90 MG/DL Estimat Glomerular Filtration 60 ML/MIN Rate Random Glucose 90 MG/DL Calcium Level 9.4 MG/DL Troponin I LESS THAN 0.02 0.02 NG/ML NG/ML MDM Medical Decision Making Medical Screen Exam Complete: Yes Emergency Medical Condition: Yes Interpretation(s) Afebrile, no tachycardia, hypertensive No leukocytosis Electrolytes are reassuring Troponin is negative 2 Chest x-ray: No acute process Differential Diagnosis Acute coronary syndrome, costochondritis, anxiety, dementia Narrative Course This is an 87-year-old female who has a history of dementia who presents to the emergency department having reported chest pain to her shelter. Here in the emergency department she is asymptomatic. She recently had a pacemaker placed. She is placed on a monitor and an IV was established. EKG was paced with appropriate capture and sensing. Labs were obtained which were reassuring with troponin that was negative 2. I performed a bedside ultrasound which demonstrated no pericardial effusion. I think the patient can safely be discharged and I doubt this reflects an acute coronary syndrome. Procedures Procedure Narrative Limited bedside echo was performed which demonstrated no pericardial effusion. Diagnosis Primary Impression: Atypical chest pain Patient Instructions: General Instructions Additional Instructions: If you develop severe chest pain, shortness of breath, sweating, lightheadedness , dizziness or difficulty breathing return to the emergency department immediately. Followup with your primary care physician in 2-3 days if your symptoms are not resolved. Med/Other Pt SpecificInfo: No Change to Meds Disposition: 01 DISCHARGE HOME Condition: Stable Latanya Weiner MD Mar 02, 2017 10:37
[2017-03-02 10:39] LABS: AUTOMATED NEUTROPHIL # 7.4 TH/MM3 (1.8-7.7); BASOPHIL # 0.1 TH/MM3 (0-0.2); EOSINOPHIL # 0.1 TH/MM3 (0-0.4); EOSINOPHIL % 1.5 % (0.0-4.0); HEMATOCRIT 45.3 % (35.0-46.0); HEMO FLAGS DIFF FINAL; LYMPH % 15.5 % (9.0-44.0); LYMPHOCYTE # 1.5 TH/MM3 (1.0-4.8); MEAN CELL VOLUME 88.9 FL (80.0-100.0); MEAN CORPUSCULAR HGB CONC 34.9 % (32.0-36.0); MONO % 7.3 % (0.0-8.0); NEUT % 74.7 % (16.0-70.0); PLATELET COUNT 230 TH/MM3 (150-450); RED CELL DISTRIBUTION WIDTH 13.2 % (11.6-17.2); WHITE BLOOD COUNT 9.8 TH/MM3 (4.0-11.0)
[2017-03-02 10:53] LABS: ANION GAP 6 MEQ/L (5-15); BICARBONATE 28.8 MEQ/L (21.0-32.0); BLOOD UREA NITROGEN 18 MG/DL (7-18); CHLORIDE 104 MEQ/L (98-107); GLOMERULAR FILTRATION RATE 60 ML/MIN (>89); POTASSIUM 4.4 MEQ/L (3.5-5.1); SODIUM (NA) 139 MEQ/L (136-145)
[2017-03-02 11:12] VITALS: BP 136/61; PULSE 69; RESP 16; O2SAT 97
--- NOTE | 2017-03-03 14:42 | EKG ---
Date Performed: 03/02/2017 Time Performed: 10:04:31 PTAGE: 87 years EKG: ELECTRONIC VENTRICULAR PACEMAKER Since previous tracing, no significant change noted ABNORM AL RHYTHM ECG PREVIOUS TRACING : 02/03/2017 10.45 DOCTOR: Corey Pelayo Interpretating Date/Time 03/03/2017 14:42:20
== END 2017-03-02 18:12 | disposition home or self-care (01) ==
LOC: NEPE 09:49
DX: R07.89 Other chest pain (principal); I25.10 Atherosclerotic heart disease of native coronary artery without angina pectoris; Z95.0 Presence of cardiac pacemaker
CPT/HCPCS: 71010; 80048; 84484; 85025; 93005; 99285

== ENCOUNTER 2017-06-27 02:21 | Observation (INO) | payer MEDICARE, OTHER ==
[2017-06-27] VITALS (8 sets, daily range): BP systolic 137–175; BP diastolic 59–71; PULSE 68–85; RESP 16–20; TEMP 97.6–98.9; O2SAT 93–99
[~2017-06-27] VITALS: Ht 160 cm; Wt 75.6 kg
[~2017-06-27 02:21] MED LIST changes: -APIX2.5T PO; -ARMO120T PO; -DIOV40TA PO; +LEVO.1 PO; +LOSA25TA PO; -MILKSUS PO; -NITR2OIN CHEST; +OXYB5TAB PO; -OXYGENTANK NAS.CANULA; +PROT40TA PO; -TOVI4TAB PO; -TYLE325T PO
[2017-06-27] MEDS ORDERED: SODIUM CHLORIDE 0.9% FLUSH 10 ML FLUSH IV FLUSH PRN ×2 (02:45→06:15)
--- NOTE | 2017-06-27 02:57 | PD ---
HPI Chief Complaint: GI Complaint Time Seen by Provider: 02:43 Travel History International Travel<30 days: No Contact w/Intl Traveler<30days: No Traveled to known affect area: No History of Present Illness HPI 87-year-old female presents to the emergency department by private transportation the care of her daughter from her assisted-living facility for evaluation of dysuria urinary frequency recent diagnosis 06/26/17 of UTI with lower abdominal pain and back pain. No report of chest pain or shortness of breath. Patient has had nausea and dry heaving and vomiting. Previous hysterectomy daughter is unaware of other abdominal surgeries. Patient has dementia. Patient also has history of pacemaker and CHF. Patient was seen by her urologist Dr King in [facility]. Unknown antibiotic and unknown if first dose taken. Pain is 9/10. Patient is unable to identify exacerbating or alleviating factors. PFSH Past Medical History Narrative Medical Atrial fibrillation hypertension CVA CAD CHF anxiety depression hypothyroidism cholecystectomy hysterectomy; no tobacco use alcohol use; nursing notes reviewed Hx Anticoagulant Therapy: Yes (ELAQUIST; daughter reports patient is NOT on Eliquis 06/27/17 --fall/bleeding risk) Atrial Fibrillation: Yes Heart Rhythm Problems: Yes Cancer: Yes (SKIN) Cardiovascular Problems: Yes (CAD, PM, A-FIB) Chest Pain: No Cerebrovascular Accident: Yes (TIA AGE 52) Coronary Artery Disease: Yes Diabetes: No Diminished Hearing: No Gastrointestinal Disorders: Yes (GERD) GERD: Yes Glaucoma: Yes (L EYE) Hepatitis: No Hiatal Hernia: No Hypertension: No Integumentary: No Immunizations Current: Yes Seizures: Yes (ABNORMAL EEG) Thyroid Disease: Yes (HYPOTHYROID) ?: Not Menopausal: Yes Past Surgical History Body Medical Devices: pacemaker Cardiac Surgery: Yes (Ablation, pacemaker) Cholecystectomy: Yes Endocrine Surgery: Yes (THYROID REMOVED) Eye Surgery: Yes (BILATERAL CATARACT SURGERY) Hysterectomy: Yes Pacemaker: Yes (medtronic) Thoracic Surgery: Yes (PM INSERT) Social History Alcohol Use: No Tobacco Use: No Substance Use: No Allergies-Medications (Allergen,Severity, Reaction): Coded Allergies: acebutolol (Unverified Allergy, Severe, a-fib, 06/27/17) atenolol (Unverified Allergy, Severe, a-fib, 06/27/17) betaxolol (Unverified Allergy, Severe, a-fib, 06/27/17) carvedilol (Unverified Allergy, Severe, a-fib, 06/27/17) labetalol (Unverified Allergy, Severe, a-fib, 06/27/17) metoprolol (Unverified Allergy, Severe, a-fib, 06/27/17) nebivolol (Unverified Allergy, Severe, a-fib, 06/27/17) niacin (Unverified Allergy, Severe, 06/27/17) pindolol (Unverified Allergy, Severe, a-fib, 06/27/17) propranolol (Unverified Allergy, Severe, a-fib, 06/27/17) quinidine (Unverified Allergy, Severe, Hallucinations, 06/27/17) sotalol (Unverified Allergy, Severe, a-fib, 06/27/17) timolol (Unverified Allergy, Severe, a-fib, 06/27/17) procainamide (Unverified Allergy, Unknown, PT DOES NOT KNOW, 06/27/17) Uncoded Allergies: HYDROMET SPRAYS (Allergy, Unknown, 05/16/10) Reported Meds & Prescriptions Reported Meds & Active Scripts Active [Spironolactone] 25 MG Tab 25 Mg PO DAILY Reported Tylenol Extra Strength (Acetaminophen) 500 Mg Tablet 1 Tab PO BID Zoloft (Sertraline HCl) 25 Mg Tab 25 Mg PO DAILY Synthroid (Levothyroxine Sodium) 100 Mcg Tab 75 Mcg PO DAILY Protonix (Pantoprazole Sodium) 40 Mg Tab 40 Mg PO DAILY Oxybutynin ER 24 HR (Oxybutynin Chloride) 5 Mg Tab 5 Mg PO DAILY Losartan (Losartan Potassium) 25 Mg Tab 25 Mg PO DAILY Ultram (Tramadol HCl) 50 Mg Tab 50 Mg PO Q4H PRN Meclizine (Meclizine HCl) 25 Mg Tab 25 Mg PO BID PRN Furosemide 20 Mg Tab 20 Mg PO DAILY Aspirin 81 Mg Chew 81 Mg CHEW DAILY Travatan Z Opth Drops (Travoprost) 0.004 % Soln 1 Drop EACH EYE HS Narrative Medication patient is NOT on Eliquis per daughter --high fall/bleeding risk therefore discontinued (06/27/17) Review of Systems Except as stated in HPI: all other systems reviewed are Neg General / Constitutional: No: Fever, Chills HENT: No: Congestion Cardiovascular: No: Chest Pain or Discomfort Respiratory: No: Cough, Shortness of Breath Gastrointestinal: Positive: Nausea, Vomiting, Abdominal Pain, No: Diarrhea Genitourinary: Positive: Urgency, Frequency Musculoskeletal: No: Myalgias, Arthralgias Skin: No Rash Neurologic: No: Weakness Psychiatric: No: Anxiety Hematologic/Lymphatic: No: Lymph Node Enlargement Physical Exam Narrative GENERAL: Well-developed well-nourished female in no acute distress no respiratory distress SKIN: Warm and dry. HEAD: Normocephalic. EYES: No scleral icterus. No injection or drainage. NECK: Supple, trachea midline. No JVD or lymphadenopathy. CARDIOVASCULAR: Regular rate and rhythm without murmurs, gallops, or rubs. RESPIRATORY: Breath sounds equal bilaterally. No accessory muscle use. GASTROINTESTINAL: Abdomen soft, tender to palpation suprapubic and left lower quadrant distribution without guarding or rebound, no palpable pulsatile mass. Nondistended. MUSCULOSKELETAL: No cyanosis, or edema. BACK: Nontender without obvious deformity. No CVA tenderness. Data Data Last Documented VS Vital Signs Date Time Temp Pulse Resp B/P (MAP) Pulse Ox O2 Delivery O2 Flow Rate FiO2 06/27/17 04:35 69 172/62 (98) 93 Room Air 06/27/17 03:45 98.2 20 Orders Orders Complete Blood Count With Diff (06/27/17 02:43) Comprehensive Metabolic Panel (06/27/17 02:43) Urinalysis - C+S If Indicated (06/27/17 02:43) Iv Access Insert/Monitor (06/27/17 02:43) Ecg Monitoring (06/27/17 02:43) Oximetry (06/27/17 02:43) Sodium Chloride 0.9% Flush (Ns Flush) (06/27/17 02:45) Blood Culture (06/27/17 02:43) Ondansetron Inj (Zofran Inj) (06/27/17 03:00) Urine Culture (06/27/17 03:05) Ceftriaxone Inj (Rocephin Inj) (06/27/17 03:45) Ct Abd/Pel W/O Iv Contrast (06/27/17 ) Phenazopyridine (Pyridium) (06/27/17 03:45) Tamsulosin (Flomax) (06/27/17 05:30) Morphine Inj (Morphine Inj) (06/27/17 05:30) Ketorolac Inj (Toradol Inj) (06/27/17 05:30) Sodium Chlor 0.9% 250 Ml Inj (Ns 250 Ml (06/27/17 05:30) Admit Order (Ed Use Only) (06/27/17 ) Can Pusher / Telemetry [id number] (06/27/17 05:51) Activity Oob With Assistance (06/27/17 05:51) Notify Dr: Other (06/27/17 05:51) Labs Laboratory Tests Test 06/27/17 03:05 White Blood Count 14.9 TH/MM3 Red Blood Count 4.80 MIL/MM3 Hemoglobin 14.7 GM/DL Hematocrit 44.7 % Mean Corpuscular Volume 93.3 FL Mean Corpuscular Hemoglobin 30.7 PG Mean Corpuscular Hemoglobin Concent 33.0 % Red Cell Distribution Width 12.8 % Platelet Count 196 TH/MM3 Mean Platelet Volume 9.1 FL Neutrophils (%) (Auto) 85.6 % Lymphocytes (%) (Auto) 6.0 % Monocytes (%) (Auto) 3.9 % Eosinophils (%) (Auto) 0.1 % Basophils (%) (Auto) 4.4 % Neutrophils # (Auto) 12.7 TH/MM3 Lymphocytes # (Auto) 0.9 TH/MM3 Monocytes # (Auto) 0.6 TH/MM3 Eosinophils # (Auto) 0.0 TH/MM3 Basophils # (Auto) 0.7 TH/MM3 CBC Comment DIFF FINAL Differential Comment Urine Color YELLOW Urine Turbidity CLOUDY Urine pH 5.5 Urine Specific Apison 1.030 Urine Protein 100 mg/dL Urine Glucose (UA) NEG mg/dL Urine Ketones NEG mg/dL Urine Occult Blood LARGE Urine Nitrite POS Urine Bilirubin NEG Urine Leukocyte Esterase TRACE Urine RBC 100-200 /hpf Urine WBC 15-19 /hpf Urine Squamous Epithelial Cells 0-5 /hpf Urine Bacteria MANY /hpf Microscopic Urinalysis Comment CULTURE INDICATED Blood Urea Nitrogen 27 MG/DL Creatinine 1.20 MG/DL Random Glucose 147 MG/DL Total Protein 8.4 GM/DL Albumin 3.9 GM/DL Calcium Level 9.2 MG/DL Alkaline Phosphatase 105 U/L Aspartate Amino Transf (AST/SGOT) 30 U/L Alanine Aminotransferase (ALT/SGPT) 23 U/L Total Bilirubin 0.5 MG/DL Sodium Level 139 MEQ/L Potassium Level 4.5 MEQ/L Chloride Level 105 MEQ/L Carbon Dioxide Level 27.2 MEQ/L Anion Gap 7 MEQ/L Estimat Glomerular Filtration Rate 43 ML/MIN MDM Medical Decision Making Medical Screen Exam Complete: Yes Emergency Medical Condition: Yes Medical Record Reviewed: Yes Interpretation(s) CBC & BMP Diagram 06/27/17 03:05 Total Protein 8.4 H, Albumin 3.9, Calcium Level 9.2, Alkaline Phosphatase 105, Aspartate Amino Transf (AST/SGOT) 30, Alanine Aminotransferase (ALT/SGPT) 23, Total Bilirubin 0.5 Vital Signs Date Time Temp Pulse Resp B/P (MAP) Pulse Ox O2 Delivery O2 Flow Rate FiO2 06/27/17 04:35 69 172/62 (98) 93 Room Air 06/27/17 03:45 98.2 69 20 175/68 (103) 97 Room Air UA: Positive nitrites positive leukocyte Estrace positive any bacteria positive blood positive red blood cells positive red blood cells; culture indicated CT abd/pel: CONCLUSION: 2 mm left ureterovesical junction calculus causing moderate obstructive uropathy. I don't clearly see the stone on the initial electrician marine radiograph. Louis Rowell MD on June 27, 2017 at 4:53 Board Certified Radiologist. This report was verified electronically. Differential Diagnosis Abdominal pain UTI diverticulitis ischemic colitis bowel obstruction pancreatitis abdominal aortic aneurysm dissection atypical chest pain Narrative Course IV access obtained specimens collected and sent for resulting urinalysis specimen collected; CT abdomen and pelvis ordered Patient administered Zofran 4 mg IV Patient given bolus of normal saline 250 ml x 1, h/o recurrent chf Abnormal urinalysis consistent with UTI consider pyelonephritis Due to markedly abnormal urinalysis with left lower quadrant abdominal pain CT kidney stone protocol ordered Findings consistent with UVJ 2 mm stone with moderate obstructive uropathy with leukocytosis and ongoing pain with high risk for fall therefore poor tolerance for narcotic pain medication plan will be observation admission for ongoing IV antibiotic pain management may require urology consult and monitored fluid rehydration for renal insufficiency obstructive uropathy and history of recurrent CHF. Call placed to [facility] service Critical Care Narrative Aggregate critical care time was 35 minutes. Time to perform other separately billable procedures was not included in the critical care time. My time did not include minutes spent treating any other patients simultaneously or on activities that did not directly contribute to the patient's treatment. The services I provided to this patient were to treat and/or prevent clinically significant deterioration that could result in: Arrhythmia, sepsis, I provided critical care services requiring my management, as noted below: Chart data review, documentation time, medication orders and management, vital sign assessments/reviewing monitor data, ordering and reviewing lab tests, ordering and interpreting/reviewing x-rays and diagnostic studies, care of the patient and discussion of the patient with the admitting physicians. Physician Communication Physician Communication call placed to [facility] service Diagnosis Primary Impression: UTI (urinary tract infection) Qualified Codes: N39.0 - Urinary tract infection, site not specified Additional Impressions: Pyelonephritis Ureterolithiasis Obstructive uropathy Admitting Information Admitting Physician Requests: Observation Yari Urbina MD Jun 27, 2017 02:57
[2017-06-27] MEDS ORDERED: ONDANSETRON HCL 4 MG/2 ML VIAL IV PUSH ONE (03:00)
[2017-06-27] MEDS ORDERED: ACET-822 PO (03:08)
[2017-06-27 03:18] LABS: BLOOD, URINE LARGE (NEG); GLUCOSE,URINE NEG (NEG); KETONE, URINE NEG (NEG); NITRITE,URINE POS (NEG); PH, URINE 5.5 (5.0-8.5)
[2017-06-27 03:22] LABS: AUTOMATED NEUTROPHIL # 12.7 TH/MM3 (1.8-7.7); BASOPHIL # 0.7 TH/MM3 (0-0.2); BASOPHIL % 4.4 % (0.0-2.0); EOSINOPHIL % 0.1 % (0.0-4.0); HEMATOCRIT 44.7 % (35.0-46.0); HEMO FLAGS DIFF FINAL; LYMPHOCYTE # 0.9 TH/MM3 (1.0-4.8); MEAN CELL VOLUME 93.3 FL (80.0-100.0); MEAN CORPUSCULAR HEMOGLOBIN 30.7 PG (27.0-34.0); MONO % 3.9 % (0.0-8.0); NEUT % 85.6 % (16.0-70.0); PLATELET COUNT 196 TH/MM3 (150-450); RED CELL DISTRIBUTION WIDTH 12.8 % (11.6-17.2); WHITE BLOOD COUNT 14.9 TH/MM3 (4.0-11.0)
[2017-06-27 03:27] LABS: URINE COLOR YELLOW (YELLW/STRAW)
[2017-06-27 03:28] LABS: BACTERIA, URINE MANY /hpf; CHLORIDE 105 MEQ/L (98-107); COMMENT (UR) CULTURE INDICATED; CULTURE IF INDICATED CULTURE INDICATED; POTASSIUM 4.5 MEQ/L (3.5-5.1); RBC, URINE 100-200 /hpf (0-3); SODIUM (NA) 139 MEQ/L (136-145); SQUAMOUS EPITHELIAL CELL URINE 0-5 /hpf (0-5); WBC, URINE 15-19 /hpf (0-5)
[2017-06-27 03:31] LABS: ANION GAP 7 MEQ/L (5-15); BICARBONATE 27.2 MEQ/L (21.0-32.0)
[2017-06-27 03:32] LABS: BLOOD UREA NITROGEN 27 MG/DL (7-18)
[2017-06-27 03:35] LABS: ALT (GPT) 23 U/L (10-53); AST (GOT) 30 U/L (15-37); GLOMERULAR FILTRATION RATE 43 ML/MIN (>89)
[2017-06-27 03:36] LABS: TOTAL BILIRUBIN ADULT 0.5 MG/DL (0.2-1.0)
[2017-06-27 03:37] LABS: ALKALINE PHOSPHATASE 105 U/L (45-117)
[2017-06-27] MEDS ORDERED: cefTRIAXone INJ 1,000 MG in SODIUM CHLORIDE 0.9% INJ 100 ML IV ONE (03:45)
[2017-06-27] MEDS ORDERED: PHENAZOPYRIDINE HCL 100 MG TAB PO ONE (03:45)
--- NOTE | 2017-06-27 04:57 | RADRPT ---
EXAM DATE/TIME: 06/27/2017 04:19 [place] COMPARISON: No previous studies available for comparison. INDICATIONS : Left lower abdomen pain and vomiting today. ORAL CONTRAST: No oral contrast ingested. RADIATION DOSE: 13.33 CTDIvol (mGy) MEDICAL HISTORY : Myocardial infarction. Congestive heart failure. SURGICAL HISTORY : Thyroidectomy. Hysterectomy.Cholecystectomy. ENCOUNTER: Initial ACUITY: 1 day PAIN SCALE: 7/10 LOCATION: Left lower quadrant TECHNIQUE: Volumetric scanning of the abdomen and pelvis was performed. Using automated exposure control and ad justment of the mA and/or kV according to patient size, radiation dose was kept as low as reasonably achievable to obtain optimal diagnostic quality images. DICOM format image data is available electro nically for review and comparison. FINDINGS: LOWER LUNGS: The visualized lower lungs are clear. LIVER: Homogeneous density without lesion. There is no dilation of the biliary tree. No calcified gallston es. SPLEEN: Normal size without lesion. PANCREAS: Within normal limits. KIDNEYS: There is a 2 mm stone of the left ureterovesical junction. Moderate hydronephrosis and hydroureter pr esent. There is left perinephric edema. No stone or obstruction on the right. ADRENAL GLANDS: Within normal limits. VASCULAR: There is dense atherosclerosis of the abdominal aorta. No aneurysm. BOWEL/MESENTERY: The stomach, small bowel, and colon demonstrate no acute abnormality. There is no free intraperitone al air or fluid. ABDOMINAL WALL: Within normal limits. RETROPERITONEUM: There is no lymphadenopathy. BLADDER: No wall thickening or mass. REPRODUCTIVE: Within normal limits. INGUINAL: There is no lymphadenopathy or hernia. MUSCULOSKELETAL: No acute bony abnormality demonstrated. CONCLUSION: 2 mm left ureterovesical junction calculus causing moderate obstructive uropathy. I don't clearly see the stone on the initial surveillance system monitor radiograph. Louis Rowell MD on June 27, 2017 at 4:53 Board Certified Radiologist. This report was verified electronically.
[2017-06-27] MEDS ORDERED: MORPHINE SULFATE 2 MG/ML INJ IV PUSH ONE (05:30)
[2017-06-27] MEDS ORDERED: KETOROLAC TROMETHAMINE 30 MG/ML (IVP) VIAL IV PUSH ONE (05:30)
[2017-06-27] MEDS ORDERED: TAMSULOSIN HCL 0.4 MG CAP PO ONE (05:30)
[2017-06-27] MEDS ORDERED: SODIUM CHLOR 0.9% 250 ML INJ 250 ML IV ONE (05:30)
[2017-06-27] MEDS ORDERED: MAGNESIUM HYDROXIDE SUSP 30 ML CUP PO PRN (06:15)
[2017-06-27] MEDS ORDERED: ONDANSETRON HCL 4 MG/2 ML VIAL IVP PRN (06:15)
[2017-06-27] MEDS ORDERED: ACETAMINOPHEN 325 MG TAB PO PRN (06:15)
[2017-06-27] MEDS ORDERED: ACETAMINOPHEN/HYDROcodone 325 MG/5 MG TAB PO PRN (06:15)
[2017-06-27] MEDS ORDERED: LACTULOSE SYRUP 20 GM/30 ML CUP PO PRN (06:15)
[2017-06-27] MEDS ORDERED: MORPHINE SULFATE 4 MG/ML INJ IV PUSH PRN (06:15)
[2017-06-27] MEDS ORDERED: BISACODYL 10 MG SUPP RECTAL PRN (06:15)
[2017-06-27] MEDS ORDERED: SENNOSIDES 8.6 MG TAB PO PRN (06:15)
[2017-06-27] MEDS: SODIUM CHLOR 0.9% 1000 ML INJ 1,000 ML IV SCH (07:13)
[2017-06-27] MEDS: SODIUM CHLORIDE 0.9% FLUSH 10 ML FLUSH IV FLUSH SCH ×2 (09:00→22:01)
[2017-06-27] MEDS: DOCUSATE SODIUM 50 MG/SENNA 8.6 MG TAB PO SCH ×2 (09:01→22:01)
--- NOTE | 2017-06-27 11:41 | HHI.HP ---
[facility] Service [facility] Hospitalists Primary Care Physician Ciera Amezquita Admission Diagnosis obstructive uropathy; UTI; ADDIS; h/o CHF Diagnoses: (1) Obstructive uropathy Diagnosis: Principal (2) UTI (urinary tract infection) Diagnosis: Principal Chief Complaint: Abdominal pain Travel History International Travel<30 Days: No Contact w/Intl Traveler <30 Da: No Traveled to Known Affected Are: No Sepsis Criteria SIRS Criteria (2 or more): WBC > 97876, < 4000 or > 10% bands Sepsis Criteria (SIRS+source): Infect source susp/known History of Present Illness Written by Estevan Leslie, acting as scribe for Dr. Rose on 06/27/17 at 11:28. 87-year-old female with known history of dementia, atrial fibrillation , coronary disease, CVA, hypertension, chronic systolic congestive heart failure , hypothyroidism who presented to the hospital because of abdominal pain. Patient does have dementia and she is alert and orientated that she is in [place]. 2017, and she is orientated to self. It was difficult to obtain information about her clinical presentation. Information was taken from medical records, nursing staff. Apparently the patient was recently diagnosed with a urinary tract infection on 06/26/17. The patient was placed on antibiotics, however the antibiotic is unknown. She was brought to the hospital because she was having significant abdominal pain, nausea, vomiting. her pain was 9/10 on a pain scale per ER documentation. Patient had workup done in found to have obstructive uropathy with hydronephrosis, hydroureter of the left side. There is perinephritic edema. It was recommended by the ER physician that patient be observed in the hospital for further recommendations. It was indicated in the ER documentation that Dr. Coppola is her urologist. At the time evaluating patient her pain has significantly improved. She denied any fever, chills or dysuria. Review of Systems Gastrointestinal: COMPLAINS OF: Abdominal pain Except as stated in HPI: all other systems reviewed are Neg Past Family Social History Past Medical History Patient unable to give information due to dementia, information taken from medical records Dementia Atrial fibrillation History TIA Hypothyroidism Coronary artery disease Chronic systolic congestive heart failure Past Surgical History Patient unable to give information due to dementia, information taken from medical records Cataract surgery Thyroidectomy Hysterectomy Bowel obstruction surgery Cholecystectomy Cardiac ablations Permanent pacemaker placement Reported Medications Reported Meds & Active Scripts Active [Spironolactone] 25 MG Tab 25 Mg PO DAILY Reported Tylenol Extra Strength (Acetaminophen) 500 Mg Tablet 1 Tab PO BID Zoloft (Sertraline HCl) 25 Mg Tab 25 Mg PO DAILY Synthroid (Levothyroxine Sodium) 100 Mcg Tab 75 Mcg PO DAILY Protonix (Pantoprazole Sodium) 40 Mg Tab 40 Mg PO DAILY Oxybutynin ER 24 HR (Oxybutynin Chloride) 5 Mg Tab 5 Mg PO DAILY Losartan (Losartan Potassium) 25 Mg Tab 25 Mg PO DAILY Ultram (Tramadol HCl) 50 Mg Tab 50 Mg PO Q4H PRN Meclizine (Meclizine HCl) 25 Mg Tab 25 Mg PO BID PRN Furosemide 20 Mg Tab 20 Mg PO DAILY Aspirin 81 Mg Chew 81 Mg CHEW DAILY Travatan Z Opth Drops (Travoprost) 0.004 % Soln 1 Drop EACH EYE HS Allergies: Coded Allergies: acebutolol (Unverified Allergy, Severe, a-fib, 06/27/17) atenolol (Unverified Allergy, Severe, a-fib, 06/27/17) betaxolol (Unverified Allergy, Severe, a-fib, 06/27/17) carvedilol (Unverified Allergy, Severe, a-fib, 06/27/17) labetalol (Unverified Allergy, Severe, a-fib, 06/27/17) metoprolol (Unverified Allergy, Severe, a-fib, 06/27/17) nebivolol (Unverified Allergy, Severe, a-fib, 06/27/17) niacin (Unverified Allergy, Severe, 06/27/17) pindolol (Unverified Allergy, Severe, a-fib, 06/27/17) propranolol (Unverified Allergy, Severe, a-fib, 06/27/17) quinidine (Unverified Allergy, Severe, Hallucinations, 06/27/17) sotalol (Unverified Allergy, Severe, a-fib, 06/27/17) timolol (Unverified Allergy, Severe, a-fib, 06/27/17) procainamide (Unverified Allergy, Unknown, PT DOES NOT KNOW, 06/27/17) Uncoded Allergies: HYDROMET SPRAYS (Allergy, Unknown, 05/16/10) Family History Reviewed is significant for diabetes, cancer, lymphoma Social History Reviewed and there is no indication of any tobacco, alcohol or illicit drugs. Physical Exam Vital Signs Vital Signs Date Time Temp Pulse Resp B/P (MAP) Pulse Ox O2 Delivery O2 Flow Rate FiO2 06/27/17 10:21 06/27/17 08:26 69 16 147/69 (95) 99 Room Air 06/27/17 07:15 98 Room Air 06/27/17 06:04 68 18 160/71 (100) 97 Room Air 06/27/17 04:35 69 172/62 (98) 93 Room Air 06/27/17 03:45 98.2 69 20 175/68 (103) 97 Room Air Physical Exam GENERAL: Well-developed, well-nourished, in no acute distress. alert and orientated, although she has very slowed thought process and responding to questions HEENT: Head is normocephalic without any lesions or masses noted. Facial features are symmetric. Eyes: Extraocular muscles are intact. Conjunctivae were clear. Oropharyngeal: Pharynx without any erythema edema. Tongue is midline without deviation. Buccal mucosa is moist without any masses or lesions NECK: Supple without any masses. Trachea midline no deviation. CARDIAC: Regular rhythm, regular rate. S1/S2 are heard. 2/6 murmur noted, no gallops or rubs. LUNGS: Clear to auscultation bilaterally. No wheeze, rhonchi or rales. No use of accessory muscles on inspiration or expiration. ABDOMEN: Soft, nontender. Left abdominal tenderness. Bowel sounds heard in all 4 quadrants. Negative rebound, negative guarding. Patient with CVA tenderness left greater than right. EXTREMITIES: No edema, pulses are equal bilaterally. No cyanosis or clubbing. Right lower extremity has bandage noted NEUROLOGY: No facial droop, no slurred speech, no tremors Psychiatry: Mood and affect appropriate Laboratory Laboratory Tests Test 06/27/17 03:05 White Blood Count 14.9 Red Blood Count 4.80 Hemoglobin 14.7 Hematocrit 44.7 Mean Corpuscular Volume 93.3 Mean Corpuscular Hemoglobin 30.7 Mean Corpuscular Hemoglobin Concent 33.0 Red Cell Distribution Width 12.8 Platelet Count 196 Mean Platelet Volume 9.1 Neutrophils (%) (Auto) 85.6 Lymphocytes (%) (Auto) 6.0 Monocytes (%) (Auto) 3.9 Eosinophils (%) (Auto) 0.1 Basophils (%) (Auto) 4.4 Neutrophils # (Auto) 12.7 Lymphocytes # (Auto) 0.9 Monocytes # (Auto) 0.6 Eosinophils # (Auto) 0.0 Basophils # (Auto) 0.7 CBC Comment DIFF FINAL Differential Comment Urine Color YELLOW Urine Turbidity CLOUDY Urine pH 5.5 Urine Specific [place] 1.030 Urine Protein 100 Urine Glucose (UA) NEG Urine Ketones NEG Urine Occult Blood LARGE Urine Nitrite POS Urine Bilirubin NEG Urine Leukocyte Esterase TRACE Urine RBC 100-200 Urine WBC 15-19 Urine Squamous Epithelial Cells 0-5 Urine Bacteria MANY Microscopic Urinalysis Comment CULTURE INDICATED Blood Urea Nitrogen 27 Creatinine 1.20 Random Glucose 147 Total Protein 8.4 Albumin 3.9 Calcium Level 9.2 Alkaline Phosphatase 105 Aspartate Amino Transf (AST/SGOT) 30 Alanine Aminotransferase (ALT/SGPT) 23 Total Bilirubin 0.5 Sodium Level 139 Potassium Level 4.5 Chloride Level 105 Carbon Dioxide Level 27.2 Anion Gap 7 Estimat Glomerular Filtration Rate 43 Date/Time Source Procedure Growth Status 06/27/17 03:10 Blood Peripheral Aerobic Blood Culture Pending Received 06/27/17 03:10 Blood Peripheral Anaerobic Blood Culture Pending Received 06/27/17 03:05 Urine Clean Catch Urine Culture Pending Received Result Diagram: 06/27/17 0305 06/27/17 0305 Imaging Last Impressions Abdomen/Pelvis CT 06/27/17 0000 Signed Impressions: Service Date/Time: Tuesday, June 27, 2017 04:19 - CONCLUSION: 2 mm left ureterovesical junction calculus causing moderate obstructive uropathy. I don' t clearly see the stone on the initial granite setter radiograph. Louis Rowell MD Caprini VTE Risk Assessment Caprini VTE Risk Assessment: Mod/High Risk (score >= 2) Caprini Risk Assessment Model Point Value = 1 Point Value = 2 Point Value = 3 Point Value = 5 Age 41-60 Minor surgery BMI > 25 kg/m2 Swollen legs Varicose veins or History of unexplained or recurrent spontaneous Oral contraceptives or hormone replacement Sepsis (< 1 month) Serious lung disease, including pneumonia (< 1 month) Abnormal pulmonary function Acute myocardial infarction Congestive heart failure (< 1 month) History of inflammatory bowel disease Medical patient at bed rest Age 61-74 Arthroscopic surgery Major open surgery (> 45 min) Laparoscopic surgery (> 45 min) Malignancy Confined to bed (> 72 hours) Immobilizing plaster cast Central venous access Age >= 75 History of VTE Family history of VTE Factor V Leiden Prothrombin [id number] Lupus anticoagulant Anticardiolipin antibodies Elevated serum homocysteine Heparin-induced thrombocytopenia Other congenital or acquired thrombophilia Stroke (< 1 month) Elective arthroplasty Hip, pelvis, or leg fracture Acute spinal cord injury (< 1 month) Prophylaxis Regimen Total Risk Factor Score Risk Level Prophylaxis Regimen 0-1 Low Early ambulation 2 Moderate Order ONE of the following: *Sequential Compression Device (SCD) *Heparin 5000 units SQ BID 3-4 Higher Order ONE of the following medications: *Heparin 5000 units SQ TID *Enoxaparin/Lovenox 40 mg SQ daily (WT < 150 kg, CrCl > 30 mL/min) *Enoxaparin/Lovenox 30 mg SQ daily (WT < 150 kg, CrCl > 10-29 mL/min) *Enoxaparin/Lovenox 30 mg SQ BID (WT < 150 kg, CrCl > 30 mL/min) AND/OR *Sequential Compression Device (SCD) 5 or more Highest Order ONE of the following medications: *Heparin 5000 units SQ TID (Preferred with Epidurals) *Enoxaparin/Lovenox 40 mg SQ daily (WT < 150 kg, CrCl > 30 mL/min) *Enoxaparin/Lovenox 30 mg SQ daily (WT < 150 kg, CrCl > 10-29 mL/min) *Enoxaparin/Lovenox 30 mg SQ BID (WT < 150 kg, CrCl > 30 mL/min) AND *Sequential Compression Device (SCD) Assessment and Plan Assessment and Plan Obstructive uropathy -Patient presented with increased abdominal pain and CT finding of 2 mm left ureteral vesicular junction calculus causing moderate obstruction uropathy, no clear stone was noted -Obtain renal bladder ultrasound -Continue cautious IV hydration secondary patient having chronic systolic congestive heart failure -Strain urine for stone -If obstruction remains after ultrasound, consider urology consultation -Continue pain control Acute renal failure superimposed on chronic kidney disease stage III -Secondary to obstructive uropathy -Continue IV fluids -Continue monitor renal function Urinary tract infection -Continue Rocephin -Monitor cultures for appropriate antibiotics Atrial fibrillation, congestive heart failure, atrial fibrillation -Continue home medications -Records indicate that patient anticoagulation has been discontinued secondary to recurrent falls - will place on fall precautions given that we will put her on heparin for DVT prophylaxis Hypothyroidism -Continue home medications DVT prevention -Sequential compression devices This note was transcribed by rach Leslie. I, Fabio Rose, personally performed the history, physical exam, and medical decision making; and confirmed the accuracy of information in the transcribed note. Authenticated by Fabio Rose on 3:14 PM on 06/24/70. All orders entered by Srini Leslie were at my discretion. Problem Qualifiers (1) UTI (urinary tract infection): Qualified Codes: N39.0 - Urinary tract infection, site not specified Estevan Leslie Jun 27, 2017 11:41 Fabio Rose MD Jun 27, 2017 15:15
--- NOTE | 2017-06-27 14:27 | RADRPT ---
EXAM DATE/TIME: 06/27/2017 13:52 [facility] COMPARISON: CT ABDOMEN & PELVIS W/O CONTRAST, June 27, 2017, 4:19. EXTERNAL COMPARISON : [facility], CT ABDOMEN & PELVIS W CONTRAST May 17, 2015. INDICATIONS : Obstruction. MEDICAL HISTORY : Gastroesophageal reflux disease. Hypothyroidism. TIA.. Coronary artery disease. Atrial fibrillati on. Congestive heart failure. Skin cancer. Dementia. Seizures. Syncope. Glaucoma. SURGICAL HISTORY : Pacemaker. Cholecystectomy. Hysterectomy. Cataract surgery. Cardiac ablation. Cadiac catheterization. Thyroidectomy. ENCOUNTER: Initial ACUITY: 1 day PAIN SCORE: 0/10 LOCATION: Bilateral flank MEASUREMENTS: RIGHT KIDNEY: 10.7 x 4.8 x 4.4 cm LEFT KIDNEY: 10.9 x 5.8 x 5.3 cm FINDINGS: RIGHT KIDNEY: Renal cortex is normal in thickness and echotexture. No hydronephrosis, stone, or mass. LEFT KIDNEY: Moderate hydronephrosis and proximal hydroureter. Mild perinephric stranding. 6 x 3 x 6 mm shadowing hyperechoic lesion in the mid left kidney likely reflecting a calculus. BLADDER: Markedly decompressed. CONCLUSION: 1. Moderate left-sided hydronephrosis and mild perinephric stranding consistent with findings on CT e xam. Patient's left UVJ calculus is not demonstrated on ultrasound likely due to incomplete bladder d istention. 2. 6 x 3 x 6 mm probable calculus in the mid left kidney which was not well-demonstrated on CT exam. 3. Right kidney is unremarkable. Sedrick Foreman MD on June 27, 2017 at 14:21 Board Certified Radiologist. This report was verified electronically.
[2017-06-27] MEDS ORDERED: MECLIZINE HCL 25 MG TAB PO PRN (15:15)
[2017-06-27] MEDS: LEVOTHYROXINE SODIUM 75 MCG TAB PO SCH (15:30)
[2017-06-27] MEDS ORDERED: PILL SPLITTER OTHER PRN (15:30)
[2017-06-27] MEDS: PANTOPRAZOLE SOD 40 MG DELAYED RELEASE TAB PO SCH (16:14)
[2017-06-27] MEDS: TOLTERODINE TARTRATE 2 MG CAP LA PO SCH (16:14)
[2017-06-27] MEDS: SERTRALINE HCL 50 MG TAB PO SCH (16:14)
[2017-06-27] MEDS: HEPARIN SODIUM - SQ 10,000 UNITS/ML VIAL SQ SCH ×2 (16:15→22:01)
[2017-06-27] MEDS: FUROSEMIDE 20 MG TAB PO SCH (16:15)
[2017-06-27] MEDS ORDERED: LATANOPROST 0.005% OPHT SOLN 2.5 ML BTL EACH EYE SCH (21:00)
[2017-06-27] MEDS: ACETAMINOPHEN 500 MG CPLT PO SCH (22:00)
[2017-06-28] VITALS: BP 134/66; PULSE 69; RESP 18; TEMP 98.4; O2SAT 98
[2017-06-28] MEDS: LEVOTHYROXINE SODIUM 75 MCG TAB PO SCH (05:13)
[2017-06-28] MEDS: HEPARIN SODIUM - SQ 10,000 UNITS/ML VIAL SQ SCH ×2 (05:17→12:25)
[2017-06-28] MEDS: SODIUM CHLOR 0.9% 1000 ML INJ 1,000 ML IV SCH (05:18)
[2017-06-28] MEDS ORDERED: cefTRIAXone INJ 1,000 MG in SODIUM CHLORIDE 0.9% INJ 100 ML IV SCH (06:00)
[2017-06-28 07:08] LABS: AUTOMATED NEUTROPHIL # 7.2 TH/MM3 (1.8-7.7); BASOPHIL # 0.1 TH/MM3 (0-0.2); BASOPHIL % 0.7 % (0.0-2.0); EOSINOPHIL # 0.1 TH/MM3 (0-0.4); EOSINOPHIL % 0.9 % (0.0-4.0); HEMATOCRIT 38.9 % (35.0-46.0); HEMO FLAGS DIFF FINAL; LYMPH % 13.5 % (9.0-44.0); LYMPHOCYTE # 1.3 TH/MM3 (1.0-4.8); MEAN CELL VOLUME 93.5 FL (80.0-100.0); MEAN CORPUSCULAR HEMOGLOBIN 31.7 PG (27.0-34.0); MEAN CORPUSCULAR HGB CONC 33.9 % (32.0-36.0); MONO % 8.9 % (0.0-8.0); PLATELET COUNT 137 TH/MM3 (150-450); RED BLOOD COUNT 4.17 MIL/MM3 (4.00-5.30); RED CELL DISTRIBUTION WIDTH 12.4 % (11.6-17.2); WHITE BLOOD COUNT 9.5 TH/MM3 (4.0-11.0)
[2017-06-28 07:19] LABS: CHLORIDE 104 MEQ/L (98-107); POTASSIUM 3.8 MEQ/L (3.5-5.1); SODIUM (NA) 140 MEQ/L (136-145)
[2017-06-28 07:29] LABS: ALKALINE PHOSPHATASE 82 U/L (45-117); ALT (GPT) 22 U/L (10-53); ANION GAP 7 MEQ/L (5-15); AST (GOT) 23 U/L (15-37); BICARBONATE 29.2 MEQ/L (21.0-32.0); BLOOD UREA NITROGEN 27 MG/DL (7-18); GLOMERULAR FILTRATION RATE 43 ML/MIN (>89); TOTAL BILIRUBIN ADULT 0.6 MG/DL (0.2-1.0)
[2017-06-28 08:00] VITALS: BP 131/61; PULSE 70; RESP 18; TEMP 97.7; O2SAT 98
[2017-06-28] MEDS: TOLTERODINE TARTRATE 2 MG CAP LA PO SCH (08:10)
[2017-06-28] MEDS: SERTRALINE HCL 50 MG TAB PO SCH (08:14)
[2017-06-28] MEDS: PANTOPRAZOLE SOD 40 MG DELAYED RELEASE TAB PO SCH (08:14)
[2017-06-28] MEDS: FUROSEMIDE 20 MG TAB PO SCH (08:14)
[2017-06-28] MEDS: DOCUSATE SODIUM 50 MG/SENNA 8.6 MG TAB PO SCH (08:15)
[2017-06-28] MEDS: ACETAMINOPHEN 500 MG CPLT PO SCH (08:15)
[2017-06-28] MEDS: SODIUM CHLORIDE 0.9% FLUSH 10 ML FLUSH IV FLUSH SCH (08:15)
[2017-06-28] MEDS ORDERED: SPIRONOLACTONE 25 MG TAB PO SCH (09:00)
--- NOTE | 2017-06-28 11:30 | PD.CONS ---
HPI Service Urology Consult Requested By ADORE Bowers Reason for Consult Left ureteral calculus Primary Care Physician Ciera Amezquita Diagnosis: (1) Obstructive uropathy ICD Code: N13.9 - Obstructive and reflux uropathy, unspecified (2) UTI (urinary tract infection) ICD Code: N39.0 - Urinary tract infection, site not specified History of Present Illness 87-year-old female with multiple medical problems including dementia who presented to the emergency room with abdominal pain. Apparently the patient was recently diagnosed with a urinary tract infection earlier this week and placed on antibiotic therapy. Upon arrival to the emergency room she complained of severe left sided abdominal pain with associated nausea and vomiting. Workup included a CT scan of the abdomen and pelvis that demonstrated left hydronephrosis with a 2 mm left ureterovesical junction calculus. At the time of urology evaluation the patient reported that she did not have any pain. There was no apparent history of recent fever or shaking chills. Review of Systems Constitutional: DENIES: Fever, Chills Gastrointestinal: COMPLAINS OF: Abdominal pain (left sided), Nausea, Vomiting Genitourinary: DENIES: Hematuria Except as stated in HPI: all other systems reviewed are Neg Past Family Social History Past Medical History Dementia Nature fibrillation History TIA Hypothyroidism Coronary artery disease CHF Past Surgical History Status post hysterectomy Status post thyroidectomy Status post surgery to release bowel obstruction Status post cholecystectomy Status post cardiac ablation procedure Status post cardiac pacemaker placement Reported Medications Refer to EMR Allergies: Coded Allergies: acebutolol (Unverified Allergy, Severe, a-fib, 06/27/17) atenolol (Unverified Allergy, Severe, a-fib, 06/27/17) betaxolol (Unverified Allergy, Severe, a-fib, 06/27/17) carvedilol (Unverified Allergy, Severe, a-fib, 06/27/17) labetalol (Unverified Allergy, Severe, a-fib, 06/27/17) metoprolol (Unverified Allergy, Severe, a-fib, 06/27/17) nebivolol (Unverified Allergy, Severe, a-fib, 06/27/17) niacin (Unverified Allergy, Severe, 06/27/17) pindolol (Unverified Allergy, Severe, a-fib, 06/27/17) propranolol (Unverified Allergy, Severe, a-fib, 06/27/17) quinidine (Unverified Allergy, Severe, Hallucinations, 06/27/17) sotalol (Unverified Allergy, Severe, a-fib, 06/27/17) timolol (Unverified Allergy, Severe, a-fib, 06/27/17) procainamide (Unverified Allergy, Unknown, PT DOES NOT KNOW, 06/27/17) Uncoded Allergies: HYDROMET SPRAYS (Allergy, Unknown, 05/16/10) Active Ordered Medications Refer to EMR Family History Lymphoma Diabetes mellitus Cancer Social History No apparent history of tobacco, alcohol or intravenous drug abuse Physical Exam Vital Signs Date Time Temp Pulse Resp B/P (MAP) Pulse Ox O2 Delivery O2 Flow Rate FiO2 06/28/17 08:00 97.7 70 18 131/61 (84) 98 06/28/17 00:00 98.4 69 18 134/66 (88) 98 06/27/17 20:00 97.6 85 18 153/60 (91) 99 06/27/17 18:30 17 06/27/17 15:50 98.9 70 20 137/59 (85) 99 Physical Exam GENERAL: This is a well-nourished, well-developed patient, in no apparent distress. SKIN: No rashes, ecchymoses or lesions. Cool and dry. HEAD: Atraumatic. Normocephalic. No temporal or scalp tenderness. EYES: Pupils equal round and reactive. Extraocular motions intact. No scleral icterus. No injection or drainage. ENT: Nose without bleeding, purulent drainage or septal hematoma. Throat without erythema, tonsillar hypertrophy or exudate. Uvula midline. Airway patent. NECK: Trachea midline. No JVD or lymphadenopathy. Supple, nontender, no meningeal signs. GASTROINTESTINAL: Abdomen soft, non-tender, nondistended. No hepato-splenomegaly , or palpable masses. No guarding. GENITOURINARY: No CVA tenderness MUSCULOSKELETAL: Extremities without clubbing, cyanosis, or edema. No joint tenderness, effusion, or edema noted. No calf tenderness. Negative Homans sign bilaterally. NEUROLOGICAL: Oriented to person. Normal speech. Lab results reviewed: Yes Laboratory Tests Test 06/28/17 06:15 White Blood Count 9.5 Red Blood Count 4.17 Hemoglobin 13.2 Hematocrit 38.9 Mean Corpuscular Volume 93.5 Mean Corpuscular Hemoglobin 31.7 Mean Corpuscular Hemoglobin Concent 33.9 Red Cell Distribution Width 12.4 Platelet Count 137 Mean Platelet Volume 9.2 Neutrophils (%) (Auto) 76.0 Lymphocytes (%) (Auto) 13.5 Monocytes (%) (Auto) 8.9 Eosinophils (%) (Auto) 0.9 Basophils (%) (Auto) 0.7 Neutrophils # (Auto) 7.2 Lymphocytes # (Auto) 1.3 Monocytes # (Auto) 0.8 Eosinophils # (Auto) 0.1 Basophils # (Auto) 0.1 CBC Comment DIFF FINAL Differential Comment Blood Urea Nitrogen 27 Creatinine 1.20 Random Glucose 88 Total Protein 6.8 Albumin 2.8 Calcium Level 8.2 Alkaline Phosphatase 82 Aspartate Amino Transf (AST/SGOT) 23 Alanine Aminotransferase (ALT/SGPT) 22 Total Bilirubin 0.6 Sodium Level 140 Potassium Level 3.8 Chloride Level 104 Carbon Dioxide Level 29.2 Anion Gap 7 Estimat Glomerular Filtration Rate 43 Date/Time Source Procedure Growth Status 06/27/17 03:10 Blood Peripheral Aerobic Blood Culture - Preliminary NO GROWTH IN 1 DAY Resulted 06/27/17 03:10 Blood Peripheral Anaerobic Blood Culture - Preliminary NO GROWTH IN 1 DAY Resulted 06/27/17 03:05 Urine Clean Catch Urine Culture - Preliminary Gram Negative Alirio Resulted Result Diagram: 06/28/1715 06/28/17 0615 Personally reviewed images: Yes Imaging Last Impressions Renal Ultrasound 06/27/17 0000 Signed Impressions: Service Date/Time: Tuesday, June 27, 2017 13:52 - CONCLUSION: 1. Moderate left-sided hydronephrosis and mild perinephric stranding consistent with findings on CT exam. Patient's left UVJ calculus is not demonstrated on ultrasound likely due to incomplete bladder distention. 2. 6 x 3 x 6 mm probable calculus in the mid left kidney which was not well-demonstrated on CT exam. 3. Right kidney is unremarkable. Sedrick Foreman MD Abdomen/Pelvis CT 06/27/17 0000 Signed Impressions: Service Date/Time: Tuesday, June 27, 2017 04:19 - CONCLUSION: 2 mm left ureterovesical junction calculus causing moderate obstructive uropathy. I don' t clearly see the stone on the initial hand singer radiograph. Louis Rowell MD Assessment and Plan Assessment and Plan Urologic impression: #1 left hydroureteronephrosis related to 2 mm left distal ureteral calculus #2 stone likely has already passed based on clinical picture Recommendations: #1 urologically stable to discharge home #2 oral analgesic medication as needed #3 patient to follow up with her established urologist Dr. Mendieta Problem Qualifiers (1) UTI (urinary tract infection): Qualified Codes: N39.0 - Urinary tract infection, site not specified Ezekile Richmond MD Jun 28, 2017 11:30
[2017-06-28 12:00] VITALS: BP 136/70; PULSE 77; RESP 20; TEMP 97.7; O2SAT 97
[2017-06-28] MEDS ORDERED: CEFD300C PO (13:22)
[2017-06-28] MEDS ORDERED: TAMS0.4C4 PO (13:22)
--- NOTE | 2017-06-28 13:22 | HHI.DCPOC ---
Discharge Care Plan Diagnosis: (1) Obstructive uropathy Goals to Promote Your Health * To prevent worsening of your condition and complications * To maintain your health at the optimal level Directions to Meet Your Goals Take your medications as prescribed Follow your dietary instruction Follow activity as directed Keep your appointments as scheduled Take your immunizations and boosters as scheduled If your symptoms worsen call your PCP, if no PCP go to Urgent Care Center or Emergency Room Smoking is Dangerous to Your Health. Avoid second hand smoke Call the 24-hour hour crisis hotline for domestic abuse at Fabio Rose MD Jun 28, 2017 13:22
[2017-06-28] MEDS ORDERED: PROM25TA10 PO (13:24)
[2017-06-28] MEDS ORDERED: NORC5TAB PO (13:25)
--- NOTE | 2017-06-28 13:26 | HHI.PR ---
Subjective Remarks Discussed case with urology, recommends outpatient follow-up with patient's personal urologist, no need to keep an patient, suspect a stone is passed. Is expected to have lingering mild CVA and suprapubic tenderness. I relayed Dr. Millard's assessment to the patient's daughter and she is in agreement with plan. Patient was also evaluated by OT and PT and they do not see any substantial deterioration warranting senior care and rehabilitation, capable of going back to [facility].. Objective Vital Signs Date Time Temp Pulse Resp B/P (MAP) Pulse Ox O2 Delivery O2 Flow Rate FiO2 06/28/17 08:00 97.7 70 18 131/61 (84) 98 06/28/17 00:00 98.4 69 18 134/66 (88) 98 06/27/17 20:00 97.6 85 18 153/60 (91) 99 06/27/17 18:30 17 06/27/17 15:50 98.9 70 20 137/59 (85) 99 I/O 06/27/17 06/27/17 06/27/17 06/28/17 06/28/17 06/28/17 07:00 15:00 23:00 07:00 15:00 23:00 Intake Total 350 ml 250 ml 240 ml 962 ml Output Total 350 ml 300 ml 250 ml Balance 0 ml -50 ml 240 ml 712 ml Intake Oral 50 ml 240 ml 120 ml IV Total 350 ml 200 ml 842 ml Output Urine Total 300 ml 300 ml 250 ml Emesis 50 ml # Voids 2 4 3 Result Diagram: 06/28/17 0615 06/28/17 0615 Medications and IVs Mild CVA tenderness bilaterally, mild suprapubic tenderness A/P Assessment and Plan We'll discharge on patient on cefdinir and flomax. stopping her losartan given low normal BPs. to f/u with urologist as outpatient in coming week. Patient has met maximal benefit from hospitalization and is clinically stable for discharge. Fabio Rose MD Jun 28, 2017 13:26
== END 2017-06-28 15:09 | disposition home or self-care (01) ==
LOC: PHED 02:21 → PHEDA 05:53 → PH3A 10:13
PROVIDERS: ADMIT Hospitalist; ATTEND Hospitalist
DX: N13.9 Obstructive and reflux uropathy, unspecified (principal); N39.0 Urinary tract infection, site not specified; B96.20 Unspecified Escherichia coli [E. coli] as the cause of diseases classified elsewhere; N17.9 Acute kidney failure, unspecified; I13.0 Hypertensive heart and chronic kidney disease with heart failure and stage 1 through stage 4 chronic kidney disease, or unspecified chronic kidney disease; N18.3 Chronic kidney disease, stage 3 (moderate); I50.22 Chronic systolic (congestive) heart failure; I48.91 Unspecified atrial fibrillation; F03.90 Unspecified dementia, unspecified severity, without behavioral disturbance, psychotic disturbance, mood disturbance, and anxiety; I25.10 Atherosclerotic heart disease of native coronary artery without angina pectoris; K21.9 Gastro-esophageal reflux disease without esophagitis; R29.6 Repeated falls; Z86.73 Personal history of transient ischemic attack (TIA), and cerebral infarction without residual deficits; Z95.0 Presence of cardiac pacemaker
CPT/HCPCS: 74176; 76775; 80053; 81001; 85025; 87040; 87077; 87086; 87186; 96361; 96365; 96372; 96375; 96376; 97161; 97166; 99285; G0378; G8987; G8988; G8989; J0696; J1644; J1885; J2270; J2405; J7030; J7050

== ENCOUNTER 2017-08-19 16:06 | Emergency (ER) | payer MEDICARE, OTHER ==
[~2017-08-19] VITALS: Ht 162.6 cm; Wt 66.0 kg
[~2017-08-19 16:06] MED LIST changes: +ACET-822 PO; +ASPI-516 CHEW; -ASPI81CH CHEW; +CEFD300C PO; -LIDO1PAD52 TOPICAL; -LOSA25TA PO; -MAPA500T PO; +NORC5TAB PO; +PROM25TA10 PO; +TAMS0.4C4 PO; +TRAM50 PO; -ULTR50TA5 PO
[2017-08-19 16:16] VITALS: BP 128/55; PULSE 70; RESP 16; TEMP 98.1; O2SAT 97
--- NOTE | 2017-08-19 16:33 | PD ---
HPI Chief Complaint: Fall Time Seen by Provider: 16:21 Travel History International Travel<30 days: No Contact w/Intl Traveler<30days: No Traveled to known affect area: No History of Present Illness HPI 87-year-old female went to reach something on a upper shelf when she tripped and fell. She states she thinks she hit her head but she did not black out. She is having pain to her right upper ribs and her right arm. She denies any other concurrent complaints. She states that she lives at an assisted living facility. Pain is sharp. Severity is moderate. It is mainly worse if she moves. She doesn't think there is any other modifying factors that she can recall. Patient does have history of dementia which limits history. PFSH Past Medical History Hx Anticoagulant Therapy: Yes (BABY ASA) Atrial Fibrillation: Yes Anxiety: No Heart Rhythm Problems: Yes Cancer: Yes (SKIN) Cardiac Catheterization: Yes Cardiovascular Problems: Yes (CAD, PM, A-FIB) High Cholesterol: Yes Chest Pain: No Congestive Heart Failure: Yes Cerebrovascular Accident: Yes (TIA AGE 52) Coronary Artery Disease: Yes Dementia: Yes Diabetes: No Diminished Hearing: No Gastrointestinal Disorders: Yes (GERD, DIARRHEA) GERD: Yes Glaucoma: Yes (L EYE) Genitourinary: Yes (UTI'S, URINARY INCONTINENCE) Hepatitis: No Hiatal Hernia: No Hypertension: Yes (ESSENTIAL) Musculoskeletal: Yes (FX OF LEFT CLAVICLE) Psychiatric: No Respiratory: No Integumentary: No Immunizations Current: Yes Myocardial Infarction: Yes Seizures: Yes (ABNORMAL EEG) Thyroid Disease: Yes (HYPOTHYROID) ?: Not Menopausal: Yes : 4 Para: 3 Miscarriage: 1 Past Surgical History Body Medical Devices: pacemaker Cardiac Surgery: Yes (Ablation, pacemaker) Cholecystectomy: Yes Endocrine Surgery: Yes (THYROID REMOVED) Eye Surgery: Yes (BILATERAL CATARACT SURGERY) Hysterectomy: Yes Pacemaker: Yes (medtronic) Thoracic Surgery: Yes (PM INSERT) Other Surgery: Yes Social History Alcohol Use: No Tobacco Use: No Substance Use: No Allergies-Medications (Allergen,Severity, Reaction): Coded Allergies: acebutolol (Unverified Allergy, Severe, a-fib, 08/21/17) atenolol (Unverified Allergy, Severe, a-fib, 08/21/17) betaxolol (Unverified Allergy, Severe, a-fib, 08/21/17) carvedilol (Unverified Allergy, Severe, a-fib, 08/21/17) labetalol (Unverified Allergy, Severe, a-fib, 08/21/17) metoprolol (Unverified Allergy, Severe, a-fib, 08/21/17) nebivolol (Unverified Allergy, Severe, a-fib, 08/21/17) niacin (Unverified Allergy, Severe, 08/21/17) pindolol (Unverified Allergy, Severe, a-fib, 08/21/17) propranolol (Unverified Allergy, Severe, a-fib, 08/21/17) quinidine (Unverified Allergy, Severe, Hallucinations, 08/21/17) sotalol (Unverified Allergy, Severe, a-fib, 08/21/17) timolol (Unverified Allergy, Severe, a-fib, 08/21/17) procainamide (Unverified Allergy, Unknown, PT DOES NOT KNOW, 08/21/17) Uncoded Allergies: HYDROMET SPRAYS (Allergy, Unknown, 05/16/10) Reported Meds & Prescriptions Reported Meds & Active Scripts Active Phenergan (Promethazine HCl) 25 Mg Tablet 25 Mg PO Q6H PRN Reported Tofranil (Imipramine HCl) 50 Mg Tab 50 Mg PO HS Myrbetriq (Mirabegron) 50 Mg Tab 50 Mg PO DAILY Loperamide (Loperamide HCl) 2 Mg Cap 2 Mg PO DIRECTED PRN One capsule after each loose stool. Not to exceed 8 capsules per day. Macrobid (Nitrofurantoin Monohydrate Macrocrystals) 100 Mg Capsule 100 Mg PO DAILY Allopurinol 100 Mg Tab 100 Mg PO DAILY Tylenol Extra Strength (Acetaminophen) 500 Mg Tablet 1 Tab PO BID Zoloft (Sertraline HCl) 25 Mg Tab 25 Mg PO DAILY Synthroid (Levothyroxine Sodium) 100 Mcg Tab 75 Mcg PO DAILY Ultram (Tramadol HCl) 50 Mg Tab 50 Mg PO Q4H PRN Furosemide 20 Mg Tab 20 Mg PO DAILY Aspirin 81 Mg Chew 81 Mg CHEW DAILY Travatan Z Opth Drops (Travoprost) 0.004 % Soln 1 Drop EACH EYE HS Review of Systems Except as stated in HPI: all other systems reviewed are Neg Physical Exam Narrative General: 87 y/o patient in no apparent distress Skin: Warm and dry Eyes: Pupils equal NECK: no pain with range of motion in midline Cardiovascular: Regular rate and rhythm Respiratory: Normal respiratory effort noted, clear to auscultation bilaterally at apices Abdomen: soft, nontender, nondistended Back: No step-offs, midline spine nontender with palpation, tender to right mid lateral thoracic wall Extremities: Pain with palpation of right mid humerus, no lacerations over, neurovascularly intact, no pain with rom of other joints Neuro: awake, sensation grossly intact, moves all extremities Data Data Last Documented VS Vital Signs Date Time Temp Pulse Resp B/P (MAP) Pulse Ox O2 Delivery O2 Flow Rate FiO2 08/19/17 19:53 78 16 96 08/19/17 19:16 Room Air 08/19/17 16:16 98.1 Orders Orders Chest, Single Ap (08/19/17 16:21) Pelvis, Ap Only (Routine) (08/19/17 16:21) Ct Brain W/O Iv Contrast(Rout) (08/19/17 16:21) Humerus (Min 2vws) (08/19/17 ) Acetaminophen (Tylenol) (08/19/17 18:00) Ed Discharge Order (08/19/17 17:59) MDM Medical Decision Making Medical Screen Exam Complete: Yes Emergency Medical Condition: Yes Medical Record Reviewed: Yes (past history confirmed) Interpretation(s) No acute fracture on trauma imaging when reviewed Differential Diagnosis Fracture, strain, sprain Narrative Course Will check trauma imaging and reevaluate. Medication list that came with patient show she takes only a baby aspirin ED workup without acute fracture or bleed, patient with steady gait here, Patient denies any new complaints and states that they are feeling better. all questions answered. Patient knows that follow up is incumbent on them and to return to the emergency room immediately if new or worsening symptoms develop. Patient given strict return precautions, vitals reviewed and are normal, agrees to further workup as an outpatient. Diagnosis Primary Impression: Fall Qualified Codes: W19.XXXA - Unspecified fall, initial encounter Additional Impression: Right-sided back pain Qualified Codes: M54.6 - Pain in thoracic spine Patient Instructions: General Instructions Additional Instructions: tylenol as needed, follow with primary this week, return as needed Med/Other Pt SpecificInfo: No Change to Meds Disposition: 01 DISCHARGE HOME Condition: Stable Cristina Gibson MD Aug 19, 2017 16:33
[2017-08-19] MEDS ORDERED: ALLO100T PO ×2 (16:36)
[2017-08-19] MEDS ORDERED: MIRA50TA PO ×2 (16:36)
[2017-08-19] MEDS ORDERED: MACR100C2 PO ×2 (16:36)
[2017-08-19] MEDS ORDERED: TOFR50TA PO ×2 (16:36)
[2017-08-19] MEDS ORDERED: LOPE2CAP PO ×2 (16:36)
--- NOTE | 2017-08-19 17:23 | RADRPT ---
EXAM DATE/TIME: 08/19/2017 16:52 [facility] COMPARISON: CT BRAIN W/O CONTRAST, June 09, 2016, 19:56. INDICATIONS : Fall. RADIATION DOSE: 58.17 CTDIvol (mGy) MEDICAL HISTORY : Cerebrovascular disease. Cardiovascular disease Hypertension.Anticoagulant therapy. SURGICAL HISTORY : Pacemaker. ENCOUNTER: Initial ACUITY: 1 day PAIN SCALE: 0/10 LOCATION: cranial TECHNIQUE: Multiple contiguous axial images were obtained of the head. Using automated exposure control and adj ustment of the mA and/or kV according to patient size, radiation dose was kept as low as reasonably a chievable to obtain optimal diagnostic quality images. DICOM format image data is available electro nically for review and comparison. FINDINGS: CEREBRUM: The ventricles are normal for age. No evidence of midline shift, mass lesion, hemorrhage or acute in farction. No extra-axial fluid collections are seen. POSTERIOR FOSSA: The cerebellum and brainstem are intact. The 4th ventricle is midline. The cerebellopontine angle i s unremarkable. EXTRACRANIAL: The visualized portion of the orbits is intact. SKULL: The calvaria is intact. No evidence of skull fracture. CONCLUSION: Normal examination. There is mild atrophy present Ramesh Burr MD on August 19, 2017 at 17:01 Board Certified Radiologist. This report was verified electronically.
--- NOTE | 2017-08-19 17:28 | RADRPT ---
EXAM DATE/TIME: 08/19/2017 17:12 [facility] COMPARISON: CHEST SINGLE AP, March 02, 2017, 10:26. INDICATIONS : Right rib pain. Patient fell today. MEDICAL HISTORY : Cerebrovascular disease. Cardiovascular disease Hypertension. SURGICAL HISTORY : Pacemaker. ENCOUNTER: Initial ACUITY: 1 day PAIN SCORE: 7/10 LOCATION: Right chest FINDINGS: A single view of the chest demonstrates the lungs to be symmetrically aerated without evidence of mas s, infiltrate or effusion. The cardiomediastinal contours are unremarkable. Osseous structures are intact. Left subclavian pacer. CONCLUSION: Normal examination. Left subclavian bipolar pacer good position. Ramesh Burr MD on August 19, 2017 at 17:25 Board Certified Radiologist. This report was verified electronically.
--- NOTE | 2017-08-19 17:30 | RADRPT ---
EXAM DATE/TIME: 08/19/2017 17:12 [facility] COMPARISON: HUMERUS RIGHT (MIN 2VWS), June 09, 2016, 20:16. INDICATIONS : Right arm pain. Patient fell today. MEDICAL HISTORY : Cerebrovascular disease. Cardiovascular disease Hypertension. SURGICAL HISTORY : Pacemaker. ENCOUNTER: Initial ACUITY: 1 day PAIN SCORE: 7/10 LOCATION: Right humerus. FINDINGS: Two view examination of the right humerus demonstrates no evidence of fracture or dislocation. Bony mineralization is normal. The soft tissue structures are intact. CONCLUSION: Unremarkable examination of the right humerus. Ramesh Burr MD on August 19, 2017 at 17:28 Board Certified Radiologist. This report was verified electronically.
--- NOTE | 2017-08-19 17:30 | RADRPT ---
EXAM DATE/TIME: 08/19/2017 17:12 [facility] COMPARISON: No previous studies available for comparison. INDICATIONS : Pelvic pain. Patient fell today. MEDICAL HISTORY : Cerebrovascular disease. Cardiovascular disease Hypertension. SURGICAL HISTORY : Pacemaker. ENCOUNTER: Initial ACUITY: 1 day PAIN SCORE: 4/10 LOCATION: Pelvis. FINDINGS: A single frontal view of the pelvis demonstrates no evidence of fracture. The bony pelvic ring is in tact. Bony mineralization is normal. The soft tissues are intact. CONCLUSION: Unremarkable examination of the pelvis. Prominent spurring of the femoral heads with concentric joint space narrowing Ramesh Burr MD on August 19, 2017 at 17:27 Board Certified Radiologist. This report was verified electronically.
[2017-08-19] MEDS ORDERED: ACETAMINOPHEN 325 MG TAB PO ONE (18:00)
[2017-08-19 18:41] VITALS: PULSE 68; RESP 16; O2SAT 97
[2017-08-19 19:16] VITALS: BP 156/67; PULSE 78; RESP 16; O2SAT 96
== END 2017-08-19 19:54 | disposition home or self-care (01) ==
LOC: PHED 16:06
DX: M54.6 Pain in thoracic spine (principal); M79.601 Pain in right arm; F03.90 Unspecified dementia, unspecified severity, without behavioral disturbance, psychotic disturbance, mood disturbance, and anxiety; W01.0XXA Fall on same level from slipping, tripping and stumbling without subsequent striking against object, initial encounter; I48.91 Unspecified atrial fibrillation; I10 Essential (primary) hypertension; E03.9 Hypothyroidism, unspecified; I25.10 Atherosclerotic heart disease of native coronary artery without angina pectoris; I50.9 Heart failure, unspecified; E78.00 Pure hypercholesterolemia, unspecified; H40.9 Unspecified glaucoma; R32 Unspecified urinary incontinence; I25.2 Old myocardial infarction; Z79.82 Long term (current) use of aspirin; Z85.828 Personal history of other malignant neoplasm of skin; Z87.39 Personal history of other diseases of the musculoskeletal system and connective tissue
CPT/HCPCS: 70450; 71010; 72170; 73060

== ENCOUNTER 2017-08-21 00:59 | Inpatient (IN) | payer MEDICARE, OTHER ==
[~2017-08-21] VITALS: Ht 162.6 cm; Wt 70.9 kg
[2017-08-21] VITALS (10 sets, daily range): BP systolic 123–157; BP diastolic 54–68; PULSE 60–89; RESP 16–20; TEMP 96.3–98.2; O2SAT 93–99
[~2017-08-21 00:59] MED LIST changes: +ALLO100T PO; +LOPE2CAP PO; +MACR100C2 PO; +MIRA50TA PO; +TOFR50TA PO
[2017-08-21] MEDS ORDERED: oxyCODONE/ACETAMINOPHEN 5 MG/325 MG TAB PO ONE (01:15)
--- NOTE | 2017-08-21 01:25 | PD ---
HPI Chief Complaint: Pain: Acute or Chronic Time Seen by Provider: 01:05 Travel History International Travel<30 days: No Contact w/Intl Traveler<30days: No Traveled to known affect area: No History of Present Illness HPI Patient is an 87-year-old female who lives in a shelter apparently she fell 24 hours ago and landed on her back. She has a bruise to her sacral area as well as a bruise underneath her right scapula. She had been worked up with a chest x-ray is CT of her head pelvic x-ray all had been interpreted as negative humerus x-ray was also done and negative. She went back to the shelter was given tramadol and Tylenol without relief of her symptoms. She comes in the middle of the night and planing and crying for pain in her back upper right sided. She is accompanied by her daughter reports there was a medication specifically ordered for pain but it did not arrive from the shelter pharmacy. Patient has a history of falling she has fallen multiple times over the last year and daughters reports that is due to orthostatic hypotension on standing up PFSH Past Medical History Hx Anticoagulant Therapy: Yes (BABY ASA) Atrial Fibrillation: Yes Anxiety: No Heart Rhythm Problems: Yes Cancer: Yes (SKIN) Cardiac Catheterization: Yes Cardiovascular Problems: Yes (CAD, PM, A-FIB) High Cholesterol: Yes Chest Pain: No Congestive Heart Failure: Yes Cerebrovascular Accident: Yes (TIA AGE 52) Coronary Artery Disease: Yes Dementia: Yes Diabetes: No Diminished Hearing: No Gastrointestinal Disorders: Yes (GERD, DIARRHEA) GERD: Yes Glaucoma: Yes (L EYE) Genitourinary: Yes (UTI'S, URINARY INCONTINENCE) Hepatitis: No Hiatal Hernia: No Hypertension: Yes (ESSENTIAL) Musculoskeletal: Yes (FX OF LEFT CLAVICLE) Psychiatric: No Respiratory: No Integumentary: No Immunizations Current: Yes Myocardial Infarction: Yes Seizures: Yes (ABNORMAL EEG) Thyroid Disease: Yes (HYPOTHYROID) ?: Not Menopausal: Yes : 4 Para: 3 Miscarriage: 1 Past Surgical History Body Medical Devices: pacemaker Cardiac Surgery: Yes (Ablation, pacemaker) Cholecystectomy: Yes Endocrine Surgery: Yes (THYROID REMOVED) Eye Surgery: Yes (BILATERAL CATARACT SURGERY) Hysterectomy: Yes Pacemaker: Yes (medtronic) Thoracic Surgery: Yes (PM INSERT) Other Surgery: Yes Social History Alcohol Use: No Tobacco Use: No Substance Use: No Allergies-Medications (Allergen,Severity, Reaction): Coded Allergies: acebutolol (Unverified Allergy, Severe, a-fib, 08/21/17) atenolol (Unverified Allergy, Severe, a-fib, 08/21/17) betaxolol (Unverified Allergy, Severe, a-fib, 08/21/17) carvedilol (Unverified Allergy, Severe, a-fib, 08/21/17) labetalol (Unverified Allergy, Severe, a-fib, 08/21/17) metoprolol (Unverified Allergy, Severe, a-fib, 08/21/17) nebivolol (Unverified Allergy, Severe, a-fib, 08/21/17) niacin (Unverified Allergy, Severe, 08/21/17) pindolol (Unverified Allergy, Severe, a-fib, 08/21/17) propranolol (Unverified Allergy, Severe, a-fib, 08/21/17) quinidine (Unverified Allergy, Severe, Hallucinations, 08/21/17) sotalol (Unverified Allergy, Severe, a-fib, 08/21/17) timolol (Unverified Allergy, Severe, a-fib, 08/21/17) procainamide (Unverified Allergy, Unknown, PT DOES NOT KNOW, 08/21/17) Uncoded Allergies: HYDROMET SPRAYS (Allergy, Unknown, 05/16/10) Reported Meds & Prescriptions Reported Meds & Active Scripts Active Phenergan (Promethazine HCl) 25 Mg Tablet 25 Mg PO Q6H PRN Reported Tofranil (Imipramine HCl) 50 Mg Tab 50 Mg PO HS Myrbetriq (Mirabegron) 50 Mg Tab 50 Mg PO DAILY Loperamide (Loperamide HCl) 2 Mg Cap 2 Mg PO DIRECTED PRN One capsule after each loose stool. Not to exceed 8 capsules per day. Macrobid (Nitrofurantoin Monohydrate Macrocrystals) 100 Mg Capsule 100 Mg PO DAILY Allopurinol 100 Mg Tab 100 Mg PO DAILY Tylenol Extra Strength (Acetaminophen) 500 Mg Tablet 1 Tab PO BID Zoloft (Sertraline HCl) 25 Mg Tab 25 Mg PO DAILY Synthroid (Levothyroxine Sodium) 100 Mcg Tab 75 Mcg PO DAILY Ultram (Tramadol HCl) 50 Mg Tab 50 Mg PO Q4H PRN Furosemide 20 Mg Tab 20 Mg PO DAILY Aspirin 81 Mg Chew 81 Mg CHEW DAILY Travatan Z Opth Drops (Travoprost) 0.004 % Soln 1 Drop EACH EYE HS Physical Exam Narrative GENERAL: appears to be in pain to upper back with every movement , alert able to communicate her pain area SKIN: Warm and dry. hematoma purple discoloration to sacrum and under right scapula area HEAD: Atraumatic. Normocephalic. EYES: Pupils equal and round. No scleral icterus. No injection or drainage. ENT: No nasal bleeding or discharge. Mucous membranes pink and moist. NECK: Trachea midline. No JVD. CARDIOVASCULAR: Regular rate and rhythm. RESPIRATORY: No accessory muscle use. GASTROINTESTINAL: Abdomen soft, non-tender, nondistended. Hepatic and splenic margins not palpable. MUSCULOSKELETAL: Extremities without clubbing, cyanosis, or edema. No obvious deformities. BACK sacral area has a hematoma over left off center to sacrum 4 cm irregular , purple subQ discoloration to skin under right scapula --very tender to touch NEUROLOGICAL: Awake and alert. No obvious cranial nerve deficits. Motor grossly within normal limits. Five out of 5 muscle strength in the arms and legs. Normal speech. PSYCHIATRIC: Appropriate mood and affect; insight and judgment normal. Data Data Last Documented VS Vital Signs Date Time Temp Pulse Resp B/P (MAP) Pulse Ox O2 Delivery O2 Flow Rate FiO2 08/21/17 01:58 70 18 128/63 (84) 95 Room Air 08/21/17 00:[address] Thorax/ Chest Wo Iv Contras (08/21/17 ) Oxycodone-Acetamin 5-325 Mg (Percocet (08/21/17 01:15) Complete Blood Count With Diff (08/21/17 02:15) Comprehensive Metabolic Panel (08/21/17 02:17) Prothrombin Time / Inr (Pt) (08/21/17 02:17) Vancomycin Consult Pharmacy (Vancomycin (08/21/17 02:30) Piperacil-Tazo 4.5 Gm Premix (Zosyn 4.5 (08/21/17 03:00) Albuterol-Ipratropium Neb (Duoneb Neb) (08/21/17 04:00) Blood Culture (08/21/17 02:18) Albuterol-Ipratropium Neb (Duoneb Neb) (08/21/17 02:30) Admit Order (Ed Use Only) (08/21/17 02:19) Labs Laboratory Tests Test 08/21/17 02:10 White Blood Count 9.6 TH/MM3 Red Blood Count 4.06 MIL/MM3 Hemoglobin 12.6 GM/DL Hematocrit 37.6 % Mean Corpuscular Volume 92.6 FL Mean Corpuscular Hemoglobin 30.9 PG Mean Corpuscular Hemoglobin Concent 33.4 % Red Cell Distribution Width 13.0 % Platelet Count 167 TH/MM3 Mean Platelet Volume 8.8 FL Neutrophils (%) (Auto) 79.1 % Lymphocytes (%) (Auto) 9.7 % Monocytes (%) (Auto) 8.0 % Eosinophils (%) (Auto) 0.7 % Basophils (%) (Auto) 2.5 % Neutrophils # (Auto) 7.6 TH/MM3 Lymphocytes # (Auto) 0.9 TH/MM3 Monocytes # (Auto) 0.8 TH/MM3 Eosinophils # (Auto) 0.1 TH/MM3 Basophils # (Auto) 0.2 TH/MM3 CBC Comment DIFF FINAL Differential Comment Prothrombin Time 10.7 SEC Prothromb Time International Ratio 1.1 RATIO Blood Urea Nitrogen 25 MG/DL Creatinine 0.98 MG/DL Random Glucose 105 MG/DL Total Protein 6.8 GM/DL Albumin 3.0 GM/DL Calcium Level 8.3 MG/DL Alkaline Phosphatase 77 U/L Aspartate Amino Transf (AST/SGOT) 29 U/L Alanine Aminotransferase (ALT/SGPT) 18 U/L Total Bilirubin 0.7 MG/DL Sodium Level 139 MEQ/L Potassium Level 4.5 MEQ/L Chloride Level 103 MEQ/L Carbon Dioxide Level 27.4 MEQ/L Anion Gap 9 MEQ/L Estimat Glomerular Filtration Rate 54 ML/MIN [facility] Medical Decision Making Medical Screen Exam Complete: Yes Emergency Medical Condition: Yes Differential Diagnosis traumatic pneumothorax vs rib fractures vs scapula fracture vs contusion other including aortic injury less likely CT chest indication to look at structure below the hematoma right scapula area Narrative Course CT chest shows multiple right ribs posterior fractures and consolidation PNA from splinting most likely , Percocet for pain and will discuss antibiotics with Hospitalist, admit for pulmonary toiletry and pain management Diagnosis Primary Impression: Multiple rib fractures Qualified Codes: S22.41XA - Multiple fractures of ribs, right side, initial encounter for closed fracture Additional Impression: Pneumonia Qualified Codes: J18.1 - Lobar pneumonia, unspecified organism Admitting Information Admitting Physician Requests: Admit Condition: Stable Avinash Leon MD Aug 21, 2017 01:25
--- NOTE | 2017-08-21 02:00 | RADRPT ---
EXAM DATE/TIME: 08/21/2017 01:27 [facility] COMPARISON: No previous studies available for comparison. INDICATIONS : Trauma, fall. RADIATION DOSE: 8.83 CTDIvol (mGy) MEDICAL HISTORY : Hypertension. Congestive heart failure. Myocardial infarction. SURGICAL HISTORY : Pacemaker. Thyroidectomy. ENCOUNTER: Initial ACUITY: 1 day PAIN SCALE: 8/10 LOCATION: Right chest TECHNIQUE: Volumetric scanning of the chest was performed. Using automated exposure control and adjustment of t he mA and/or kV according to patient size, radiation dose was kept as low as reasonably achievable to obtain optimal diagnostic quality images. DICOM format image data is available electronically for r eview and comparison. Follow-up recommendations for detected pulmonary nodules are based at a minimum on nodule size and pa tient risk factors according to Fleischner Society Guidelines. FINDINGS: LUNGS: There is mild increased density at the posterior lung bilaterally being greater on the right likely r elated to either atelectasis or contusions. PLEURAE: There is a mild amount of right pleural fluid. MEDIASTINUM: The heart and great vessels demonstrate no acute abnormality. There is no mediastinal or hilar lymph adenopathy. There is a pacing device seen in the left chest. Coronary artery calcifications are prese nt. AXILLAE: Within normal limits. No lymphadenopathy. MUSCULOSKELETAL: There are right fifth through 10th rib fractures. MISCELLANEOUS: The visualized upper abdominal organs demonstrate no acute abnormality. Calcified granulomas are seen in the liver and spleen. CONCLUSION: 1. Right fifth through 10th rib fractures. 2. Mild right pleural fluid and suspected accompanying atelectasis or consolidation at the posterior lungs being greater on the right. Louis Brown MD on August 21, 2017 at 1:54 Board Certified Radiologist. This report was verified electronically.
[2017-08-21] MEDS ORDERED: SODIUM CHLORIDE 0.9% FLUSH 10 ML FLUSH IV FLUSH PRN (02:30)
[2017-08-21] MEDS ORDERED: Vancomycin Consult Pharmacy 1 EA OTHER SCH (02:30)
[2017-08-21] MEDS ORDERED: SENNOSIDES 8.6 MG TAB PO PRN (02:30)
[2017-08-21] MEDS ORDERED: ACETAMINOPHEN 325 MG TAB PO PRN (02:30)
[2017-08-21] MEDS ORDERED: NALOXONE HCL 0.4 MG/ML AMP IV PUSH PRN (02:30)
[2017-08-21] MEDS ORDERED: ONDANSETRON HCL 4 MG/2 ML VIAL IVP PRN (02:30)
[2017-08-21] MEDS ORDERED: MAGNESIUM HYDROXIDE SUSP 30 ML CUP PO PRN (02:30)
[2017-08-21] MEDS ORDERED: RESP: ALBUTEROL 2.5 MG/IPRATROPIUM 0.5 MG NEB (PRN) NEB (02:30)
[2017-08-21 02:39] LABS: AUTOMATED NEUTROPHIL # 7.6 TH/MM3 (1.8-7.7); BASOPHIL # 0.2 TH/MM3 (0-0.2); BASOPHIL % 2.5 % (0.0-2.0); EOSINOPHIL # 0.1 TH/MM3 (0-0.4); EOSINOPHIL % 0.7 % (0.0-4.0); HEMATOCRIT 37.6 % (35.0-46.0); LYMPH % 9.7 % (9.0-44.0); LYMPHOCYTE # 0.9 TH/MM3 (1.0-4.8); MEAN CELL VOLUME 92.6 FL (80.0-100.0); MEAN CORPUSCULAR HEMOGLOBIN 30.9 PG (27.0-34.0); MEAN CORPUSCULAR HGB CONC 33.4 % (32.0-36.0); NEUT % 79.1 % (16.0-70.0); PLATELET COUNT 167 TH/MM3 (150-450); RED BLOOD COUNT 4.06 MIL/MM3 (4.00-5.30); WHITE BLOOD COUNT 9.6 TH/MM3 (4.0-11.0)
[2017-08-21 02:41] LABS: HEMO FLAGS DIFF FINAL
[2017-08-21 02:46] LABS: CHLORIDE 103 MEQ/L (98-107); SODIUM (NA) 139 MEQ/L (136-145)
[2017-08-21 02:47] LABS: POTASSIUM 4.5 MEQ/L (3.5-5.1)
[2017-08-21 02:49] LABS: ANION GAP 9 MEQ/L (5-15); BICARBONATE 27.4 MEQ/L (21.0-32.0); BLOOD UREA NITROGEN 25 MG/DL (7-18); INTERNATIONAL NORMALIZED RATIO 1.1 RATIO; PROTHROMBIN TIME - PATIENT 10.7 SEC (9.8-11.6)
[2017-08-21 02:52] LABS: ALT (GPT) 18 U/L (10-53); AST (GOT) 29 U/L (15-37); GLOMERULAR FILTRATION RATE 54 ML/MIN (>89)
[2017-08-21 02:54] LABS: TOTAL BILIRUBIN ADULT 0.7 MG/DL (0.2-1.0)
[2017-08-21 02:55] LABS: ALKALINE PHOSPHATASE 77 U/L (45-117)
[2017-08-21] MEDS ORDERED: PIPERACIL-TAZO 4.5 GM PREMIX 100 ML IV SCH (03:00)
[2017-08-21] MEDS: PIPERACILLIN/TAZ 4.5 GM VIAL 4.5 GM in SODIUM CHLORIDE 0.9% INJ 100 ML IV SCH ×2 (03:15→09:28)
[2017-08-21] MEDS: RESP: ALBUTEROL 2.5 MG/IPRATROPIUM 0.5 MG NEB (SCH) NEB ×4 (03:51→21:10)
[2017-08-21] MEDS: ACETAMINOPHEN/HYDROcodone 325 MG/5 MG TAB PO PRN ×4 (04:02→20:44)
[2017-08-21] MEDS: HEPARIN SODIUM - SQ 10,000 UNITS/ML VIAL SQ SCH ×3 (05:34→22:00)
[2017-08-21] MEDS ORDERED: VANCOMYCIN 1,000 MG/NS 250 ML IV SCH ×2 (06:00)
[2017-08-21] MEDS: SODIUM CHLORIDE 0.9% FLUSH 10 ML FLUSH IV FLUSH SCH ×2 (08:09→20:45)
--- NOTE | 2017-08-21 12:25 | HHI.HP ---
HPI Service [facility] Primary Care Physician Ciera Amezquita Admission Diagnosis multiple rib fractures Right and PNA R lungs Diagnoses: Chief Complaint: right rib pain, fall. Travel History International Travel<30 Days: No Contact w/Intl Traveler <30 Da: No Traveled to Known Affected Are: No History of Present Illness Ms. Ulloa is an 87-year-old female with a history of atrial fibrillation, TIA, CAD and a recent fall who presents to the emergency department today due to persistent pain despite taking tramadol and Tylenol. She lives at a group home and fell on her back 24 hours before this admission. She was evaluated initially and CT head, chest x-ray and pelvic x- ray did not show any acute findings. Upon returning to group home she continued to have pain which prompted her to come back to the hospital. At the time of this interview patient is eating lunch. She is not able to give much information about her current condition or past medical history. She complains of right-sided chest wall pain. No fever or chills. Review of Systems Except as stated in HPI: all other systems reviewed are Neg Past Family Social History Past Medical History Coronary artery disease Atrial fibrillation TIA Urinary incontinence GERD Dementia Past Surgical History Bilateral cataract surgery, thyroid surgery, pacemaker insertion, cholecystectomy, hysterectomy Reported Medications Phenergan (Promethazine HCl) 25 Mg Tablet 25 Mg PO Q6H PRN Reported Tofranil (Imipramine HCl) 50 Mg Tab 50 Mg PO HS Myrbetriq (Mirabegron) 50 Mg Tab 50 Mg PO DAILY Loperamide (Loperamide HCl) 2 Mg Cap 2 Mg PO DIRECTED PRN One capsule after each loose stool. Not to exceed 8 capsules per day. Macrobid (Nitrofurantoin Monohydrate Macrocrystals) 100 Mg Capsule 100 Mg PO DAILY Allopurinol 100 Mg Tab 100 Mg PO DAILY Tylenol Extra Strength (Acetaminophen) 500 Mg Tablet 1 Tab PO BID Zoloft (Sertraline HCl) 25 Mg Tab 25 Mg PO DAILY Synthroid (Levothyroxine Sodium) 100 Mcg Tab 75 Mcg PO DAILY Ultram (Tramadol HCl) 50 Mg Tab 50 Mg PO Q4H PRN Furosemide 20 Mg Tab 20 Mg PO DAILY Aspirin 81 Mg Chew 81 Mg CHEW DAILY Travatan Z Opth Drops (Travoprost) 0.004 % Soln 1 Drop EACH EYE HS Allergies: Coded Allergies: acebutolol (Unverified Allergy, Severe, a-fib, 08/21/17) atenolol (Unverified Allergy, Severe, a-fib, 08/21/17) betaxolol (Unverified Allergy, Severe, a-fib, 08/21/17) carvedilol (Unverified Allergy, Severe, a-fib, 08/21/17) labetalol (Unverified Allergy, Severe, a-fib, 08/21/17) metoprolol (Unverified Allergy, Severe, a-fib, 08/21/17) nebivolol (Unverified Allergy, Severe, a-fib, 08/21/17) niacin (Unverified Allergy, Severe, 08/21/17) pindolol (Unverified Allergy, Severe, a-fib, 08/21/17) propranolol (Unverified Allergy, Severe, a-fib, 08/21/17) quinidine (Unverified Allergy, Severe, Hallucinations, 08/21/17) sotalol (Unverified Allergy, Severe, a-fib, 08/21/17) timolol (Unverified Allergy, Severe, a-fib, 08/21/17) procainamide (Unverified Allergy, Unknown, PT DOES NOT KNOW, 08/21/17) Uncoded Allergies: HYDROMET SPRAYS (Allergy, Unknown, 05/16/10) Family History No family history of Alzheimer's or Parkinson's. Social History Patient denies using tobacco, alcohol, illicit drugs. Physical Exam Vital Signs Vital Signs Date Time Temp Pulse Resp B/P (MAP) Pulse Ox O2 Delivery O2 Flow Rate FiO2 08/21/17 10:08 93 Nasal Cannula 2.00 08/21/17 08:00 97.7 89 16 127/54 (78) 99 08/21/17 06:30 98.2 70 20 149/67 (94) 94 08/21/17 03:15 98.2 70 20 149/68 (95) 94 08/21/17 03:00 08/21/17 01:58 70 18 128/63 (84) 95 Room Air 08/21/17 00:59 97.7 72 16 157/60 (92) 95 Physical Exam GENERAL: This is a well-nourished, well-developed patient, in no apparent distress. SKIN: No rashes, ecchymoses or lesions. Warm and dry. HEAD: Atraumatic. Normocephalic. No temporal or scalp tenderness. EYES: Pupils equal round and reactive. No injection or drainage. ENT: Nose without bleeding, purulent drainage or septal hematoma. Airway patent. NECK: Trachea midline. No lymphadenopathy. Supple, nontender, no meningeal signs. CARDIOVASCULAR: Regular rate and rhythm without murmurs, gallops, or rubs. No JVD. Right chest wall tenderness on palpation. RESPIRATORY: Clear to auscultation. Breath sounds equal bilaterally. No wheezes , rales, or rhonchi. GASTROINTESTINAL: Abdomen soft, non-tender, nondistended. No guarding. MUSCULOSKELETAL: Extremities without clubbing, cyanosis, or edema. NEUROLOGICAL: Awake and alert. Cranial nerves II through XII intact. No focal neurological deficits. Normal speech. Laboratory Laboratory Tests Test 08/21/17 02:10 White Blood Count 9.6 Red Blood Count 4.06 Hemoglobin 12.6 Hematocrit 37.6 Mean Corpuscular Volume 92.6 Mean Corpuscular Hemoglobin 30.9 Mean Corpuscular Hemoglobin Concent 33.4 Red Cell Distribution Width 13.0 Platelet Count 167 Mean Platelet Volume 8.8 Neutrophils (%) (Auto) 79.1 Lymphocytes (%) (Auto) 9.7 Monocytes (%) (Auto) 8.0 Eosinophils (%) (Auto) 0.7 Basophils (%) (Auto) 2.5 Neutrophils # (Auto) 7.6 Lymphocytes # (Auto) 0.9 Monocytes # (Auto) 0.8 Eosinophils # (Auto) 0.1 Basophils # (Auto) 0.2 CBC Comment DIFF FINAL Differential Comment Prothrombin Time 10.7 Prothromb Time International Ratio 1.1 Blood Urea Nitrogen 25 Creatinine 0.98 Random Glucose 105 Total Protein 6.8 Albumin 3.0 Calcium Level 8.3 Alkaline Phosphatase 77 Aspartate Amino Transf (AST/SGOT) 29 Alanine Aminotransferase (ALT/SGPT) 18 Total Bilirubin 0.7 Sodium Level 139 Potassium Level 4.5 Chloride Level 103 Carbon Dioxide Level 27.4 Anion Gap 9 Estimat Glomerular Filtration Rate 54 Date/Time Source Procedure Growth Status 08/21/17 02:15 Blood Peripheral Aerobic Blood Culture Pending Received 08/21/17 02:15 Blood Peripheral Anaerobic Blood Culture Pending Received Result Diagram: 08/21/17 0210 08/21/17 0210 Imaging Last Impressions Chest CT 08/21/17 0000 Signed Impressions: Service Date/Time: August 01:27 - CONCLUSION: 1. Right fifth through 10th rib fractures. 2. Mild right pleural fluid and suspected accompanying atelectasis or consolidation at the posterior lungs being greater on the right. Louis Brown MD [place] VTE Risk Assessment Caprini VTE Risk Assessment: Mod/High Risk (score >= 2) Caprini Risk Assessment Model Point Value = 1 Point Value = 2 Point Value = 3 Point Value = 5 Age 41-60 Minor surgery BMI > 25 kg/m2 Swollen legs Varicose veins or History of unexplained or recurrent spontaneous Oral contraceptives or hormone replacement Sepsis (< 1 month) Serious lung disease, including pneumonia (< 1 month) Abnormal pulmonary function Acute myocardial infarction Congestive heart failure (< 1 month) History of inflammatory bowel disease Medical patient at bed rest Age 61-74 Arthroscopic surgery Major open surgery (> 45 min) Laparoscopic surgery (> 45 min) Malignancy Confined to bed (> 72 hours) Immobilizing plaster cast Central venous access Age >= 75 History of VTE Family history of VTE Factor V Leiden Prothrombin [id number] Lupus anticoagulant Anticardiolipin antibodies Elevated serum homocysteine Heparin-induced thrombocytopenia Other congenital or acquired thrombophilia Stroke (< 1 month) Elective arthroplasty Hip, pelvis, or leg fracture Acute spinal cord injury (< 1 month) Prophylaxis Regimen Total Risk Factor Score Risk Level Prophylaxis Regimen 0-1 Low Early ambulation 2 Moderate Order ONE of the following: *Sequential Compression Device (SCD) *Heparin 5000 units SQ BID 3-4 Higher Order ONE of the following medications: *Heparin 5000 units SQ TID *Enoxaparin/Lovenox 40 mg SQ daily (WT < 150 kg, CrCl > 30 mL/min) *Enoxaparin/Lovenox 30 mg SQ daily (WT < 150 kg, CrCl > 10-29 mL/min) *Enoxaparin/Lovenox 30 mg SQ BID (WT < 150 kg, CrCl > 30 mL/min) AND/OR *Sequential Compression Device (SCD) 5 or more Highest Order ONE of the following medications: *Heparin 5000 units SQ TID (Preferred with Epidurals) *Enoxaparin/Lovenox 40 mg SQ daily (WT < 150 kg, CrCl > 30 mL/min) *Enoxaparin/Lovenox 30 mg SQ daily (WT < 150 kg, CrCl > 10-29 mL/min) *Enoxaparin/Lovenox 30 mg SQ BID (WT < 150 kg, CrCl > 30 mL/min) AND *Sequential Compression Device (SCD) Assessment and Plan Problem List: (1) Multiple rib fractures ICD Code: S22.49XA - Multiple fractures of ribs, unspecified side, initial encounter for closed fracture Status: Acute (2) Atrial fibrillation ICD Code: I48.91 - Unspecified atrial fibrillation Status: Acute Assessment and Plan Ms. Ulloa is an 87 year old female with a history of CAD, TIA, dementia, Afib who presented to the ED due to a fall related right chest wall pain. She was recently evaluated after her fall. However, due to persistent pain, patient came back to the hospital. Patient is not able to provide much history, perhaps due to dementia. - Right sided multiple rib fracture ( 5th to 10th). - Will start pain management with Naproxen 375mg BID and [place] PRN. - Will start Protonix 40mg Qday. - Incentive spirometry - PT eval pending. - CAD - Hypothyroidism - Anxiety/Depression - Continue home medications. Full code. SCDs. Physician Certification 2 Midnight Certification Type: Admission for Inpatient Services Order for Inpatient Services The services are ordered in accordance with Medicare regulations or non- Medicare payer requirements, as applicable. In the case of services not specified as inpatient-only, they are appropriately provided as inpatient services in accordance with the 2-midnight benchmark. Estimated LOS (days): 2 days is the estimated time the patient will need to remain in the hospital, assuming treatment plan goals are met and no additional complications. Post-Hospital Plan: Not yet determined Problem Qualifiers (1) Multiple rib fractures: Qualified Codes: S22.41XA - Multiple fractures of ribs, right side, initial encounter for closed fracture Deneen Christiansen DO Aug 21, 2017 12:25 pm
[2017-08-21] MEDS ORDERED: MORPHINE SULFATE 2 MG/ML INJ IM PRN (13:15)
[2017-08-21] MEDS ORDERED: ACETAMINOPHEN 500 MG CPLT PO PRN (13:15)
[2017-08-21] MEDS ORDERED: PANTOPRAZOLE SOD 40 MG DELAYED RELEASE TAB PO ONE (13:30)
[2017-08-21] MEDS ORDERED: NAPROXEN 375 MG TAB PO ONE (13:30)
[2017-08-21] MEDS ORDERED: PILL SPLITTER OTHER PRN (13:45)
[2017-08-21] MEDS ORDERED: PIPERACIL-TAZO 3.375 GM PREMIX 50 ML IV SCH (15:00)
[2017-08-21] MEDS ORDERED: PIPERACILLIN/TAZ 3.375 GM VIAL 3.375 GM in SODIUM CHLORIDE 0.9% INJ 100 ML IV SCH (15:00)
[2017-08-21] MEDS: LATANOPROST 0.005% OPHT SOLN 2.5 ML BTL EACH EYE SCH (20:43)
[2017-08-21] MEDS: NAPROXEN 375 MG TAB PO SCH (20:43)
[2017-08-22] VITALS (8 sets, daily range): BP systolic 112–148; BP diastolic 53–67; PULSE 69–71; RESP 16–20; TEMP 96.4–98.2; O2SAT 96–100
[2017-08-22] MEDS: IMIPRAMINE HCL 25 MG TAB PO SCH ×2 (02:33→20:08)
[2017-08-22] MEDS: RESP: ALBUTEROL 2.5 MG/IPRATROPIUM 0.5 MG NEB (SCH) NEB ×4 (03:49→20:13)
[2017-08-22] MEDS: LEVOTHYROXINE SODIUM 100 MCG TAB PO SCH ×2 (06:34→06:35)
[2017-08-22] MEDS: HEPARIN SODIUM - SQ 10,000 UNITS/ML VIAL SQ SCH ×3 (06:35→20:22)
[2017-08-22 08:43] LABS: AUTOMATED NEUTROPHIL # 4.6 TH/MM3 (1.8-7.7); BASOPHIL % 0.8 % (0.0-2.0); EOSINOPHIL # 0.1 TH/MM3 (0-0.4); EOSINOPHIL % 1.2 % (0.0-4.0); HEMATOCRIT 40.1 % (35.0-46.0); HEMO FLAGS DIFF FINAL; LYMPH % 13.1 % (9.0-44.0); LYMPHOCYTE # 0.8 TH/MM3 (1.0-4.8); MEAN CELL VOLUME 95.1 FL (80.0-100.0); MEAN CORPUSCULAR HEMOGLOBIN 30.7 PG (27.0-34.0); MEAN CORPUSCULAR HGB CONC 32.3 % (32.0-36.0); MONO % 9.1 % (0.0-8.0); NEUT % 75.8 % (16.0-70.0); PLATELET COUNT 164 TH/MM3 (150-450); RED BLOOD COUNT 4.22 MIL/MM3 (4.00-5.30); RED CELL DISTRIBUTION WIDTH 13.2 % (11.6-17.2)
[2017-08-22 08:49] LABS: POTASSIUM 3.7 MEQ/L (3.5-5.1)
[2017-08-22 08:52] LABS: BICARBONATE 31.2 MEQ/L (21.0-32.0)
[2017-08-22] MEDS ORDERED: PATIENT OWN MEDICATION PO SCH (09:00)
[2017-08-22] MEDS: SODIUM CHLORIDE 0.9% FLUSH 10 ML FLUSH IV FLUSH SCH ×2 (09:00→20:09)
[2017-08-22] MEDS: ACETAMINOPHEN/HYDROcodone 325 MG/5 MG TAB PO PRN ×3 (10:01→20:09)
[2017-08-22] MEDS: ALLOPURINOL 100 MG TAB PO SCH (10:07)
[2017-08-22] MEDS: SERTRALINE HCL 50 MG TAB PO SCH (10:07)
[2017-08-22] MEDS: PANTOPRAZOLE SOD 40 MG DELAYED RELEASE TAB PO SCH (10:07)
[2017-08-22] MEDS: NAPROXEN 375 MG TAB PO SCH ×2 (10:08→20:08)
--- NOTE | 2017-08-22 12:43 | HHI.PR ---
Subjective Remarks Patient seen and examined today for follow-up on intractable pain secondary to rib fractures, bilateral pulmonary contusion versus consolidation. Patient was seen this morning she is sitting in a chair. She does look quite comfortable. States that she still having some pain but it is controlled with medications. She does have memory issues and it was difficult to obtain much information. Her overall clinically she appears to be improving and pain appears to be controlled. Awaiting placement per case management Objective Vital Signs Date Time Temp Pulse Resp B/P (MAP) Pulse Ox O2 Delivery O2 Flow Rate FiO2 08/22/17 08:00 97.3 71 16 116/55 (75) 100 08/22/17 02:30 69 08/22/17 00:00 96.4 70 20 148/67 (94) 98 08/21/17 21:10 99 Nasal Cannula 2.00 08/21/17 20:00 96.3 70 20 137/60 (85) 95 08/21/17 16:00 97.2 60 16 128/62 (84) 99 I/O 08/21/17 08/21/17 08/21/17 08/22/17 08/22/17 08/22/17 07:00 15:00 23:00 07:00 15:00 23:00 Intake Total 100 ml 350 ml 960 ml 60 ml Balance 100 ml 350 ml 960 ml 60 ml Intake Oral 960 ml 60 ml IV Total 100 ml 350 ml # Voids 5 2 # Bowel Movements 0 0 Result Diagram: 08/22/17 0820 08/22/17 0820 Imaging Last Impressions Chest CT 08/21/17 0000 Signed Impressions: Service Date/Time: August 01:27 - CONCLUSION: 1. Right fifth through 10th rib fractures. 2. Mild right pleural fluid and suspected accompanying atelectasis or consolidation at the posterior lungs being greater on the right. Louis Brown MD Objective Remarks GENERAL: Well-developed, well-nourished, in no acute distress. alert. HEENT: Head is normocephalic without any lesions or masses noted. Facial features are symmetric. Eyes: Extraocular muscles are intact. Conjunctivae were clear. NECK: Supple without any masses. Trachea midline no deviation. No JVD, CARDIAC: Regular rhythm, regular rate. S1/S2 are heard. 2/6 ejection murmur, no gallops or rubs. LUNGS: Clear to auscultation bilaterally. No wheeze, rhonchi or rales. No use of accessory muscles on inspiration or expiration. ABDOMEN: Soft, nontender. Nondistended. Bowel sounds heard in all 4 quadrants. No organomegaly or masses. Negative rebound, negative guarding EXTREMITIES: No edema, pulses are equal bilaterally. No cyanosis or clubbing NEUROLOGY: Mood and affect appear appropriate. Cranial nerves II through XII grossly intact. Moving all extremities, speech is clear A/P Assessment and Plan Ms. Ulloa is an 87 year old female with a history of CAD, TIA, dementia, Afib who presented to the ED due to a fall related right chest wall pain. She was recently evaluated after her fall. However, due to persistent pain, patient came back to the hospital. Patient is not able to provide much history, perhaps due to dementia. Right sided multiple rib fracture ( 5th to 10th). Continue pain management with Naproxen 375mg BID and [place] PRN. Continue Protonix 40mg Qday. Continue Incentive spirometry Physical therapy performed and patient walked joint 30 feet with front wheel walker. Bilateral lung contusion versus consolidation per CT Patient does not have any clinical appearance of consolidation, afebrile, no tachypnea, no hypoxia Patient was given initial empirical antibiotics emergency department Continue monitor for any signs of pneumonia and start treatment at that time Continue duo nebs Coronary artery disease, hypothyroidism, anxiety, depression Home medications have been continued CAD DVT prevention Sequential compression devices, Subcutaneous heparin CODE STATUS Full code Discharge Planning [facility] once arrangements made. Estevan Leslie Aug 22, 2017 12:43
[2017-08-22] MEDS: LATANOPROST 0.005% OPHT SOLN 2.5 ML BTL EACH EYE SCH (20:08)
[2017-08-23] VITALS: BP 118/53; PULSE 70; RESP 18; TEMP 98.3; O2SAT 98
[2017-08-23] MEDS: RESP: ALBUTEROL 2.5 MG/IPRATROPIUM 0.5 MG NEB (SCH) NEB ×4 (03:40→19:29)
[2017-08-23 04:00] VITALS: BP 117/58; PULSE 68; RESP 16; TEMP 98.4; O2SAT 97
[2017-08-23] MEDS: HEPARIN SODIUM - SQ 10,000 UNITS/ML VIAL SQ SCH ×3 (06:00→22:20)
[2017-08-23 08:00] VITALS: BP 126/62; PULSE 70; RESP 16; TEMP 96.2; O2SAT 98; O2SAT 99
[2017-08-23 08:30] VITALS: O2SAT 96
[2017-08-23] MEDS: SODIUM CHLORIDE 0.9% FLUSH 10 ML FLUSH IV FLUSH SCH ×2 (09:24→20:48)
[2017-08-23] MEDS: PANTOPRAZOLE SOD 40 MG DELAYED RELEASE TAB PO SCH (09:25)
[2017-08-23] MEDS: ALLOPURINOL 100 MG TAB PO SCH (09:26)
[2017-08-23] MEDS: ACETAMINOPHEN/HYDROcodone 325 MG/5 MG TAB PO PRN ×2 (09:26→20:47)
[2017-08-23] MEDS: SERTRALINE HCL 50 MG TAB PO SCH (09:26)
[2017-08-23] MEDS: NAPROXEN 375 MG TAB PO SCH ×2 (09:28→20:48)
--- NOTE | 2017-08-23 10:04 | HHI.PR ---
Subjective Remarks Patient seen and examined today for follow-up on intractable pain secondary to rib fractures, bilateral pulmonary contusion versus consolidation. Patient doing well. Still not completely control his pain at this time. Discussed with patient and daughter at bedside. Plans for discharge to nursing home tomorrow. Objective Vital Signs Date Time Temp Pulse Resp B/P (MAP) Pulse Ox O2 Delivery O2 Flow Rate FiO2 08/23/17 08:30 96 21 08/23/17 08:00 98 Nasal Cannula 2.00 08/23/17 08:00 96.2 70 16 126/62 (83) 99 08/23/17 04:00 98.4 68 16 117/58 (77) 97 08/23/17 00:00 98.3 70 18 118/53 (74) 98 08/22/17 20:16 96 Nasal Cannula 2.00 08/22/17 20:00 97.5 69 18 121/57 (78) 96 08/22/17 16:00 98.2 69 16 112/53 (72) 100 08/22/17 14:51 20 08/22/17 12:00 97.9 69 16 120/57 (78) 99 08/22/17 11:08 20 08/22/17 10:11 96 Nasal Cannula 2.00 I/O 08/22/17 08/22/17 08/22/17 08/23/17 08/23/17 08/23/17 07:00 15:00 23:00 07:00 15:00 23:00 Intake Total 60 ml 840 ml 220 ml Balance 60 ml 840 ml 220 ml Intake Oral 60 ml 840 ml 220 ml # Voids 2 3 2 # Bowel Movements 0 0 0 Result Diagram: 08/22/1781908/22/1720 Objective Remarks GENERAL: Well-developed, well-nourished, in no acute distress. alert. HEENT: Head is normocephalic without any lesions or masses noted. Facial features are symmetric. Eyes: Extraocular muscles are intact. Conjunctivae were clear. NECK: Supple without any masses. Trachea midline no deviation. No JVD, CARDIAC: Regular rhythm, regular rate. S1/S2 are heard. 2/6 ejection murmur, no gallops or rubs. LUNGS: Clear to auscultation bilaterally. No wheeze, rhonchi or rales. No use of accessory muscles on inspiration or expiration. ABDOMEN: Soft, nontender. Nondistended. Bowel sounds heard in all 4 quadrants. No organomegaly or masses. Negative rebound, negative guarding EXTREMITIES: No edema, pulses are equal bilaterally. No cyanosis or clubbing NEUROLOGY: Mood and affect appear appropriate. Cranial nerves II through XII grossly intact. Moving all extremities, speech is clear A/P Assessment and Plan Ms. Ulloa is an 87 year old female with a history of CAD, TIA, dementia, Afib who presented to the ED due to a fall related right chest wall pain. She was recently evaluated after her fall. However, due to persistent pain, patient came back to the hospital. Patient is not able to provide much history, perhaps due to dementia. Right sided multiple rib fracture ( 5th to 10th). Continue pain management with Naproxen 375mg BID and [place] PRN. Add Lidoderm patch Continue Protonix 40mg Qday. Continue Incentive spirometry Physical therapy performed and patient walked joint 30 feet with front wheel walker. Bilateral lung contusion versus consolidation per CT Patient does not have any clinical appearance of consolidation, afebrile, no tachypnea, no hypoxia Patient was given initial empirical antibiotics emergency department Continue monitor for any signs of pneumonia and start treatment at that time Continue duo nebs Coronary artery disease, hypothyroidism, anxiety, depression Home medications have been continued CAD DVT prevention Sequential compression devices, Subcutaneous heparin CODE STATUS Full code Discharge Planning Discharge planning to nursing home facility once arrangements made, likely tomorrow. Estevan Leslie Aug 23, 2017 10:04
[2017-08-23] MEDS: LIDOCAINE HCL 5% PATCH T-DERMAL SCH (11:05)
[2017-08-23 19:30] VITALS: O2SAT 93
[2017-08-23 20:00] VITALS: BP 130/58; PULSE 70; RESP 18; TEMP 98.2; O2SAT 95
[2017-08-23] MEDS: IMIPRAMINE HCL 25 MG TAB PO SCH (20:47)
[2017-08-23] MEDS: LATANOPROST 0.005% OPHT SOLN 2.5 ML BTL EACH EYE SCH (20:47)
[2017-08-24] VITALS: BP 139/65; PULSE 72; RESP 16; TEMP 98.3; O2SAT 96
[2017-08-24] MEDS ORDERED: PHARMACY ORDERED LAB ONE (05:45)
[2017-08-24] MEDS ORDERED: LEVOTHYROXINE SODIUM 75 MCG TAB PO SCH (06:00)
[2017-08-24] MEDS: HEPARIN SODIUM - SQ 10,000 UNITS/ML VIAL SQ SCH ×2 (06:00→08:42)
[2017-08-24 08:00] VITALS: BP 149/64; PULSE 74; RESP 16; TEMP 97; O2SAT 96
[2017-08-24] MEDS: RESP: ALBUTEROL 2.5 MG/IPRATROPIUM 0.5 MG NEB (SCH) NEB (08:01)
[2017-08-24 08:03] VITALS: O2SAT 97
[2017-08-24] MEDS: LIDOCAINE HCL 5% PATCH T-DERMAL SCH (08:40)
[2017-08-24] MEDS: ALLOPURINOL 100 MG TAB PO SCH (08:41)
[2017-08-24] MEDS: NAPROXEN 375 MG TAB PO SCH (08:41)
[2017-08-24] MEDS: PANTOPRAZOLE SOD 40 MG DELAYED RELEASE TAB PO SCH (08:41)
[2017-08-24] MEDS: SERTRALINE HCL 50 MG TAB PO SCH (08:41)
[2017-08-24] MEDS: ACETAMINOPHEN/HYDROcodone 325 MG/5 MG TAB PO PRN (08:42)
[2017-08-24] MEDS: SODIUM CHLORIDE 0.9% FLUSH 10 ML FLUSH IV FLUSH SCH (09:03)
--- NOTE | 2017-08-24 09:07 | HHI.DCPOC ---
Discharge Care Plan Diagnosis: (1) Multiple rib fractures (2) Pneumonia Goals to Promote Your Health * To prevent worsening of your condition and complications * To maintain your health at the optimal level Directions to Meet Your Goals Take your medications as prescribed Follow your dietary instruction Follow activity as directed Keep your appointments as scheduled Take your immunizations and boosters as scheduled If your symptoms worsen call your PCP, if no PCP go to Urgent Care Center or Emergency Room Smoking is Dangerous to Your Health. Avoid second hand smoke Call the 24-hour hour crisis hotline for domestic abuse at Estevan Leslie Aug 24, 2017 09:07
[2017-08-24] MEDS ORDERED: LIDO1ADH4 T-DERMAL (09:10)
[2017-08-24] MEDS ORDERED: HYDR-3516 PO (09:10)
[2017-08-24] MEDS ORDERED: LEVO500T8 PO (09:14)
--- NOTE | 2017-08-24 09:31 | HHI.DS ---
Discharge Summary Admission Date Aug 21, 2017 at 02:21 Discharge Date: Aug 24, 2017 Admitting Diagnosis multiple rib fractures Right and PNA R lungs (1) Multiple rib fractures ICD Code: S22.49XA - Multiple fractures of ribs, unspecified side, initial encounter for closed fracture Status: Acute (2) Atrial fibrillation ICD Code: I48.91 - Unspecified atrial fibrillation Status: Acute Procedures None Brief History - From Admission Ms. Ulloa is an 87-year-old female with a history of atrial fibrillation, TIA, CAD and a recent fall who presents to the emergency department today due to persistent pain despite taking tramadol and Tylenol. [facility] and fell on her back 24 hours before this admission. She was evaluated initially and CT head, chest x-ray and pelvic x- ray did not show any acute findings. Upon returning to [facility] she continued to have pain which prompted her to come back to the hospital. At the time of this interview patient is eating lunch. She is not able to give much information about her current condition or past medical history. She complains of right-sided chest wall pain. No fever or chills. CBC/BMP: 08/22/17 0820 08/22/17 0820 Significant Findings Laboratory Tests Test 08/22/17 08:20 08/24/17 05:45 Neutrophils (%) (Auto) 75.8 % (16.0-70.0) Monocytes (%) (Auto) 9.1 % (0.0-8.0) Lymphocytes # (Auto) 0.8 TH/MM3 (1.0-4.8) Blood Urea Nitrogen 27 MG/DL (7-18) Estimat Glomerular Filtration Rate 57 ML/MIN (>89) Imaging Last Impressions Chest CT 08/21/17 0000 Signed Impressions: Service Date/Time: , August 21, 2017 01:27 - CONCLUSION: 1. Right fifth through 10th rib fractures. 2. Mild right pleural fluid and suspected accompanying atelectasis or consolidation at the posterior lungs being greater on the right. Louis Brown MD Hospital Course 87-year-old female who presented to emergency department for evaluation of fall at local assisted living facility. Patient initially had workup and ruled out any pelvic fracture. Patient continued to have worsening pain and be presented to the emergency department and found to have multiple posterior rib fractures. CT scan indicated consolidation versus lung contusion. Patient was having severe blunting and unable to breathe normally. Patient's pain was not controlled and due to her clinical findings patient was admitted the hospital with IV antibiotics for the consolidations. Pain management. Physical therapy evaluated the patient which indicated the patient is only ambulating with front wheel walker for 45 feet. Patient was not clinically stable enough to return back to local [facility] for continued management. Patient remain in the hospital for pain management. Lidoderm patch was started and patient continued on [place], morphine. Pain sequelae was controlled and has not required any pain medication for over the last 12 hours. Patient appears to be doing much better. She indicates that she is doing much better than she has been. Patient has remained afebrile, no leukocytosis. Case was discussed with patient and daughter at bedside on multiple occasions. Patient feels that she is well enough to leave the hospital today. Case management was consulted for senior care placement, daughter indicates that she may continue to inquire about long-term senior care facility. Will plan discharge today to senior care facility once arrangements made. Pt Condition on Discharge: Stable Discharge Disposition: Discharge to SNF Discharge Time: > 30 minutes Discharge Instructions DIET: Follow Instructions for: Heart Healthy Diet Activities you can perform: Regular-No Restrictions Follow up Referrals: PCP Follow-up - 1 Week New Medications: Levofloxacin (Levofloxacin) 500 Mg Tablet 500 MG PO DAILY for Infection, #5 TAB 0 Refills Hydrocodone/Acetaminophen (Hydrocodone-Acetamin 5-325 mg) 5 Mg-325 Mg Tablet 1 TAB PO Q4H PRN for PAIN SCALE 5 TO 10, #10 TAB Lidocaine (Lidoderm) 5 % Adh..patch 1 PATCH T-DERMAL DAILY for Pain Management for 10 Days, #10 PATCH Continued Medications: Allopurinol (Allopurinol) 100 Mg Tab 100 MG PO DAILY for Gout, #30 TAB 0 Refills Aspirin (Aspirin) 81 Mg Chew 81 MG CHEW DAILY, TAB 0 Refills Furosemide (Furosemide) 20 Mg Tab 20 MG PO DAILY, #30 TAB 0 Refills Imipramine HCL (Tofranil) 50 Mg Tab 50 MG PO HS for Control Depression, TAB 0 Refills Levothyroxine (Synthroid) 100 Mcg Tab 75 MCG PO DAILY for Thyroid, #30 TAB 0 Refills Mirabegron (Myrbetriq) 50 Mg Tab 50 MG PO DAILY for Urinary Symptom Managemen, #30 TAB 0 Refills Promethazine (Phenergan) 25 Mg Tablet 25 MG PO Q6H PRN for NAUSEA OR VOMITING, #12 TAB 0 Refills Sertraline (Zoloft) 25 Mg Tab 25 MG PO DAILY, #30 TAB 0 Refills Travoprost Opth Drops (Travatan Z Opth Drops) 0.004 % Soln 1 DROP EACH EYE HS for Glaucoma, #1 BOTTLE 0 Refills Discontinued Medications: Acetaminophen (Tylenol Extra Strength) 500 Mg Tablet 1 TAB PO BID Loperamide (Loperamide) 2 Mg Cap 2 MG PO DIRECTED PRN for DIARRHEA, CAP 0 Refills One capsule after each loose stool. Not to exceed 8 capsules per day. Nitrofurantoin Monohydrate Macrocrystals (Macrobid) 100 Mg Capsule 100 MG PO DAILY for Infection, CAP 0 Refills Tramadol (Ultram) 50 Mg Tab 50 MG PO Q4H PRN for PAIN, TAB 0 Refills Estevan Leslie Aug 24, 2017 09:31
== END 2017-08-24 12:01 | DRG 183 ==
LOC: PHED 00:59 → PHEDA 02:21 → PH3A 03:01
PROVIDERS: ADMIT Hospitalist; ATTEND Hospitalist
DX: S22.41XA Multiple fractures of ribs, right side, initial encounter for closed fracture (principal); J18.9 Pneumonia, unspecified organism; I48.91 Unspecified atrial fibrillation; I11.0 Hypertensive heart disease with heart failure; F03.90 Unspecified dementia, unspecified severity, without behavioral disturbance, psychotic disturbance, mood disturbance, and anxiety; I50.9 Heart failure, unspecified; I25.10 Atherosclerotic heart disease of native coronary artery without angina pectoris; K21.9 Gastro-esophageal reflux disease without esophagitis; R32 Unspecified urinary incontinence; E03.9 Hypothyroidism, unspecified; F32.9 Major depressive disorder, single episode, unspecified; F41.9 Anxiety disorder, unspecified; H40.9 Unspecified glaucoma; E78.00 Pure hypercholesterolemia, unspecified; Z95.0 Presence of cardiac pacemaker; Z91.81 History of falling; Z86.73 Personal history of transient ischemic attack (TIA), and cerebral infarction without residual deficits; Z90.710 Acquired absence of both cervix and uterus; Y92.129 Unspecified place in nursing home as the place of occurrence of the external cause; M54.6 Pain in thoracic spine; M79.601 Pain in right arm; W01.0XXA Fall on same level from slipping, tripping and stumbling without subsequent striking against object, initial encounter; I25.2 Old myocardial infarction; Z79.82 Long term (current) use of aspirin; Z85.828 Personal history of other malignant neoplasm of skin; Z87.39 Personal history of other diseases of the musculoskeletal system and connective tissue
CPT/HCPCS: 70450; 71010; 71250; 72170; 73060; 80048; 80053; 80202; 85025; 85610; 87040; 94150; 94640; 94664; 99285; J1644; J2543; J3370; J7050

== ENCOUNTER 2017-08-28 14:29 | Inpatient (IN) | payer MEDICARE, OTHER ==
[2017-08-28] VITALS (7 sets, daily range): BP systolic 146–193; BP diastolic 64–77; PULSE 68–96; RESP 16–22; TEMP 98.2–98.9; O2SAT 96–97
[~2017-08-28] VITALS: Ht 162.6 cm; Wt 73.2 kg
[~2017-08-28 14:29] MED LIST changes: -ACET-822 PO; -CEFD300C PO; +HYDR-3516 PO; +LEVO500T8 PO; +LIDO1ADH4 T-DERMAL; -LOPE2CAP PO; -MACR100C2 PO; -MECL-62 PO; -NORC5TAB PO; -OXYB5TAB PO; -PROT40TA PO; -Spironolactone PO; -TAMS0.4C4 PO; -TRAM50 PO
[2017-08-28] MEDS ORDERED: SODIUM CHLOR 0.9% 1000 ML INJ 1,000 ML IV ONE (14:33)
--- NOTE | 2017-08-28 14:37 | PD ---
HPI Chief Complaint: stroke alert Time Seen by Provider: 14:33 Travel History International Travel<30 days: No Contact w/Intl Traveler<30days: No History of Present Illness HPI Patient's 87 years old and arrives to the ER by EMS due to stroke. She was last seen normal 1 hour prior to EMS arrival. Deficits included left brent- neglect left upper extremity and left lower extremity weakness. Evidently the patient was talking about plans to eat ice cream. When she was encountered she was unable to speak and therefore EMS was activated. The daughter states the patient is normally lucid and conversant and interactive. Patient does suffer with dementia. Evidently the patient underwent a pacemaker device placement about 3 weeks prior. She has also discontinued from all anticoagulants except for aspirin prior to pacing device placement. PFSH Past Medical History Hx Anticoagulant Therapy: Yes (BABY ASA) Arthritis: Yes (bilat knees) Atrial Fibrillation: Yes Anxiety: No Heart Rhythm Problems: Yes (a fib) Cancer: Yes (skin cancer removed) Cardiac Catheterization: Yes Cardiovascular Problems: Yes High Cholesterol: No Chemotherapy: No Chest Pain: Yes Congestive Heart Failure: Yes Cerebrovascular Accident: Yes (TIA at 52) Coronary Artery Disease: Yes Dementia: Yes Diabetes: No Diminished Hearing: No Gastrointestinal Disorders: Yes (GERD, DIARRHEA) GERD: No Glaucoma: Yes (L EYE) Genitourinary: Yes Hepatitis: No Hiatal Hernia: No Hypertension: Yes (ESSENTIAL) Immune Disorder: No Kidney Stones: Yes Musculoskeletal: Yes Neurologic: Yes Psychiatric: No Reproductive: No Respiratory: No Integumentary: No Immunizations Current: Yes Migraines: No Myocardial Infarction: Yes Radiation Therapy: No Renal Failure: No Seizures: No Thyroid Disease: Yes Ulcer: No Menopausal: Yes : 4 Para: 3 Miscarriage: 1 Past Surgical History Abdominal Surgery: Yes (cholecystectomy) AICD: No Arteriovenous Shunt: No Body Medical Devices: pacemaker Cardiac Surgery: Yes (pacemaker, cardiac ablations) Cholecystectomy: Yes Ear Surgery: No Endocrine Surgery: No Eye Surgery: Yes (cataract removal bilat) Genitourinary Surgery: No Gynecologic Surgery: Yes (hysterectomy) Hysterectomy: Yes Insulin Pump: No Joint Replacement: No Oral Surgery: No Pacemaker: Yes Thoracic Surgery: No Other Surgery: Yes Social History Alcohol Use: No Tobacco Use: No Substance Use: No Allergies-Medications (Allergen,Severity, Reaction): Coded Allergies: acebutolol (Unverified Allergy, Severe, a-fib, 08/28/17) atenolol (Unverified Allergy, Severe, a-fib, 08/28/17) betaxolol (Unverified Allergy, Severe, a-fib, 08/28/17) carvedilol (Unverified Allergy, Severe, a-fib, 08/28/17) labetalol (Unverified Allergy, Severe, a-fib, 08/28/17) metoprolol (Unverified Allergy, Severe, a-fib, 08/28/17) nebivolol (Unverified Allergy, Severe, a-fib, 08/28/17) niacin (Unverified Allergy, Severe, 08/28/17) pindolol (Unverified Allergy, Severe, a-fib, 08/28/17) propranolol (Unverified Allergy, Severe, a-fib, 08/28/17) quinidine (Unverified Allergy, Severe, Hallucinations, 08/28/17) sotalol (Unverified Allergy, Severe, a-fib, 08/28/17) timolol (Unverified Allergy, Severe, a-fib, 08/28/17) procainamide (Unverified Allergy, Unknown, PT DOES NOT KNOW, 08/28/17) Uncoded Allergies: HYDROMET SPRAYS (Allergy, Unknown, 05/16/10) Reported Meds & Prescriptions Reported Meds & Active Scripts Active Levofloxacin 500 Mg Tablet 500 Mg PO DAILY Lidoderm (Lidocaine) 5 % Adh..patch 1 Patch T-DERMAL DAILY 10 Days Hydrocodone-Acetamin 5-325 mg (Hydrocodone/Acetaminophen) 5 Mg-325 Mg Tablet 1 Tab PO Q4H PRN Phenergan (Promethazine HCl) 25 Mg Tablet 25 Mg PO Q6H PRN Reported Duoneb (Ipratropium-Albuterol Neb) 0.5-2.5 Mg/3 Ml Neb 1 Nebule INH Q6HR NEB Ketorolac (Ketorolac Tromethamine) 10 Mg Tab 10 Mg PO BID Tofranil (Imipramine HCl) 50 Mg Tab 50 Mg PO HS Myrbetriq (Mirabegron) 50 Mg Tab 50 Mg PO DAILY Allopurinol 100 Mg Tab 100 Mg PO DAILY Zoloft (Sertraline HCl) 25 Mg Tab 25 Mg PO DAILY Synthroid (Levothyroxine Sodium) 100 Mcg Tab 75 Mcg PO DAILY Furosemide 20 Mg Tab 20 Mg PO DAILY Aspirin 81 Mg Chew 81 Mg CHEW DAILY Travatan Z Opth Drops (Travoprost) 0.004 % Soln 1 Drop EACH EYE HS Review of Systems ROS Limitations: Clinical Condition Physical Exam Narrative GENERAL: 87-year-old female moderate distress SKIN: Focused skin assessment warm/dry. HEAD: Atraumatic. Normocephalic. EYES: Pupils are equal round and reactive to light. There is no asymmetry of the pupils. The gaze is conjugate ENT: No nasal bleeding or discharge. Mucous membranes pink and moist. NECK: Trachea midline. No JVD. CARDIOVASCULAR: Regular rate and rhythm. No murmur appreciated. RESPIRATORY: No accessory muscle use. Clear to auscultation. Breath sounds equal bilaterally. GASTROINTESTINAL: Abdomen soft, non-tender, nondistended. Hepatic and splenic margins not palpable. MUSCULOSKELETAL: No obvious deformities. No clubbing. No cyanosis. No edema. NEUROLOGICAL: The patient has paralysis of the left upper and left lower extremity. She has brent-neglect of the left side. There is facial asymmetry with weakness on the left although mild. The patient can repeat basic phrases however is unable to offer verbal responses otherwise. PSYCHIATRIC: Appropriate mood and affect; insight and judgment normal. Data Data Last Documented VS Vital Signs Date Time Temp Pulse Resp B/P (MAP) Pulse Ox O2 Delivery O2 Flow Rate FiO2 08/28/17 14:35 73 16 156/67 (96) 97 Vital signs Vital Signs Date Time Temp Pulse Resp B/P (MAP) Pulse Ox O2 Delivery O2 Flow Rate FiO2 08/28/17 14:35 73 16 156/67 (96) 97 Orders Orders Diet Npo (08/28/17 Dinner) Activity Bed Rest (08/28/17 ) Electrocardiogram (08/28/17 ) I-Stat Creatinine (08/28/17 14:33) I-Stat Profile (08/28/17 14:33) Prothrombin Time / Inr (Pt) (08/28/17 14:33) Act Partial Throm Time (Ptt) (08/28/17 14:33) Complete Blood Count With Diff (08/28/17 14:33) Fibrinogen (08/28/17 14:33) Creatine Kinase (Cpk) (08/28/17 14:33) Troponin I (08/28/17 14:33) Ua Includes Microscopic (08/28/17 14:33) Drug Screen, Random Urine (08/28/17 14:33) Type And Screen (08/28/17 14:33) Ct Brain W/O Iv Contrast(Rout) (08/28/17 ) Beta Hcg (Quant/Titer) (08/28/17 14:33) Consult Neurology (08/28/17 ) Blood Glucose (08/28/17 14:33) Ecg Monitoring (08/28/17 14:33) Neuro Checks Q2HX12,Q4H (08/28/17 14:33) Nursing Bedside Swallow Assess .ONCE (08/28/17 14:33) Iv Access Insert/Monitor (08/28/17 14:33) NPO (08/28/17 14:33) Oximetry (08/28/17 14:33) Oxygen Administration (08/28/17 14:33) Sodium Chlor 0.9% 1000 Ml Inj (Ns 1000 M (08/28/17 14:33) Resp Oxygen Papo C Titrat 1-4 L (08/28/17 14:33) Cath For Specimen (08/28/17 14:33) Cta Brain W Iv Contrast W 3d (08/28/17 14:37) Cta Neck W Iv Contrast W 3d (08/28/17 14:37) ^ Call Pharmacy (08/28/17 14:38) Nih Stroke Scale - Nihss .ONCE (08/28/17 14:38) Urinary Catheter Insert/Apply (08/28/17 14:38) Anticoagulant Alert (08/28/17 14:38) ^ Post Infusion Restrictions (08/28/17 14:38) ^ Medication Alert (08/28/17 14:38) Vital Signs (Adult) .As directed (08/28/17 14:38) Notify Dr: Blood Pressure (08/28/17 14:38) ^ Medication Alert (08/28/17 14:38) Alteplase Bolus (Activase Bolus) (08/28/17 14:45) Alteplase Drip (Activase Drip) (08/28/17 14:45) Sodium Chloride 0.9% Inj (Ns Inj) (08/28/17 14:45) Misc Nursing Information (08/28/17 14:45) Resp Oxygen Papo C Titrat 1-4 L (08/28/17 ) Ct Brain W/O Iv Contrast(Rout) (08/29/17 ) (Hub Use Only)Inp Phy Cons/Ref (08/28/17 ) Iodixanol 320 Inj (Rad Ct) (Visipaque 32 (08/28/17 15:17) Admit Order (Ed Use Only) (08/28/17 ) Marine Electrician Helper / Telemetry REZA.Q8H (08/28/17 15:24) Vital Signs (Adult) Q4H (08/28/17 15:24) Activity Bed Rest (08/28/17 15:24) Notify Dr: Other (08/28/17 15:24) Cbc No Diff, Includes Plts (08/29/17 05:00) Cbc No Diff, Includes Plts (08/30/17 05:00) Cbc No Diff, Includes Plts (08/31/17 05:00) Cbc No Diff, Includes Plts (09/01/17 05:00) Cbc No Diff, Includes Plts (09/02/17 05:00) Cbc No Diff, Includes Plts (09/03/17 05:00) Cbc No Diff, Includes Plts (09/04/17 05:00) Basic Metabolic Panel (Bmp) (08/29/17 05:00) Basic Metabolic Panel (Bmp) (08/30/17 05:00) Basic Metabolic Panel (Bmp) (08/31/17 05:00) Basic Metabolic Panel (Bmp) (09/01/17 05:00) Basic Metabolic Panel (Bmp) (09/02/17 05:00) Basic Metabolic Panel (Bmp) (09/03/17 05:00) Basic Metabolic Panel (Bmp) (09/04/17 05:00) Hydralazine Inj (Apresoline Inj) (08/28/17 15:30) ^ Medication Admin Instruction (08/28/17 15:25) Notify Dr: Other (08/28/17 15:25) Potassium Chlor 40 Meq Premix (Kcl 40 Me (08/28/17 15:30) Potassium Chlor 20 Meq Premix (Kcl 20 Me (08/28/17 15:30) Potassium Chloride Eff (K-Lyte Cl Eff) (08/28/17 15:30) Potassium Chlor 40 Meq Premix (Kcl 40 Me (08/28/17 15:30) Potassium Chlor 20 Meq Premix (Kcl 20 Me (08/28/17 15:30) Magnesium Sulfate Inj (Magnesium Sulfate (08/28/17 15:30) Magnesium Oxide (Mag-Ox) (08/28/17 15:30) Magnesium Sulfate Inj (Magnesium Sulfate (08/28/17 15:30) Potassium Phosphate (K-Phos) (08/28/17 15:30) Sodium Phosphate Inj (Sodium Phosphate I (08/28/17 15:30) Potassium Phosphate (K-Phos) (08/28/17 15:30) Potassium Phosphate Inj (Potassium Phosp (08/28/17 15:30) Inpatient Certification (08/28/17 15:25) Resp Ezpap/Pep Therapy (08/28/17 15:25) Resp Acapella/Pep/Chest Vibra (08/28/17 15:25) Resp Incentive Spirometry (08/28/17 15:25) Nursing Bedside Swallow Assess .ONCE (08/28/17 15:25) ^ Other Nursing Orders (08/28/17 15:25) ^ Other Nursing Orders (08/28/17 15:25) ^ Other Nursing Orders (08/28/17 15:25) Bedside Glucose REZA.CSUGAR&03 (08/28/17 15:25) Blood Glucose Goal (Criteria) (08/28/17 15:25) Hypoglycemia 51 - 69 Mg/Dl (08/28/17 15:25) Hypoglycemia 50 Mg/Dl Or < (08/28/17 15:25) Notify Dr: Other (08/28/17 15:25) Dextrose 50% In Lis (Vial) Inj (D50w (Vi (08/28/17 15:30) Insulin Human Reg Supp Scale (Novolin R (08/28/17 17:00) Neuro Checks REZA.Q1H (08/28/17 15:25) Code Status (08/28/17 15:25) Vital Signs (Adult) REZA.Q1H (08/28/17 15:25) Activity Bed Rest (08/28/17 15:25) Elevate Head Of Bed (08/28/17 15:25) Sodium Chlor 0.9% 1000 Ml Inj (Ns 1000 M (08/28/17 15:25) Acetaminophen (Tylenol) (08/28/17 15:30) Famotidine Inj (Pepcid Inj) (08/28/17 21:00) Ondansetron Inj (Zofran Inj) (08/28/17 15:30) Albuterol-Ipratropium Neb (Duoneb Neb) (08/28/17 15:30) Marine Electrician Helper / Telemetry REZA.Q8H (08/28/17 15:25) Scd Bilateral/Knee High REZA.BID (08/28/17 15:25) ^ Initiate Protocol (08/28/17 15:25) Instruction (08/28/17 15:25) Misc Nursing Information (08/28/17 15:30) Chlorhexidine 2% Cloth (Chlorhexidine 2% (08/29/17 04:00) Chlorhexidine 2% Cloth (Chlorhexidine 2% (08/28/17 15:30) Mrsa Pcr Surveillance (08/28/17 15:25) Docusate Sodium-Senna (Cherie-Colace) (08/28/17 21:00) Magnesium Hydroxide Liq (Milk Of Magnesi (08/28/17 15:30) Echo 2d Comp With Doppler (08/28/17 ) Lipid Profile (08/28/17 15:25) Labs Laboratory Tests Test 08/28/17 14:35 08/28/17 15:07 White Blood Count 9.3 TH/MM3 Red Blood Count 4.48 MIL/MM3 Hemoglobin 14.1 GM/DL Hematocrit 42.7 % Mean Corpuscular Volume 95.2 FL Mean Corpuscular Hemoglobin 31.4 PG Mean Corpuscular Hemoglobin Concent 33.0 % Red Cell Distribution Width 13.4 % Platelet Count 248 TH/MM3 Mean Platelet Volume 8.6 FL Neutrophils (%) (Auto) 76.2 % Lymphocytes (%) (Auto) 11.4 % Monocytes (%) (Auto) 9.5 % Eosinophils (%) (Auto) 1.9 % Basophils (%) (Auto) 1.0 % Neutrophils # (Auto) 7.1 TH/MM3 Lymphocytes # (Auto) 1.1 TH/MM3 Monocytes # (Auto) 0.9 TH/MM3 Eosinophils # (Auto) 0.2 TH/MM3 Basophils # (Auto) 0.1 TH/MM3 CBC Comment DIFF FINAL Differential Comment Prothrombin Time 11.0 SEC Prothromb Time International Ratio 1.1 RATIO Activated Partial Thromboplast Time 27.3 SEC Fibrinogen 480 mg/dL Bedside Hemoglobin 12.6 G/DL Bedside Hematocrit 37.0 % Bedside Sodium 140 MMOL/L Bedside Potassium 3.7 MMOL/L Bedside Chloride 103 MMOL/L Bedside Blood Urea Nitrogen 24 MG/DL Bedside Creatinine 0.8 MG/DL Bedside Glucose 112 MG/DL Total Creatine Kinase 77 U/L Troponin I 0.02 NG/ML Triglycerides Level 165 MG/DL Cholesterol Level 159 MG/DL LDL Cholesterol 96 MG/DL HDL Cholesterol 30.4 MG/DL Cholesterol/HDL Ratio 5.23 RATIO Human Chorionic Gonadotropin, Quant 3 MIU/ML [facility] Medical Screen Exam Complete: Yes Emergency Medical Condition: Yes Differential Diagnosis CBC & BMP Diagram 08/28/17 14:35 Last 24 hours Impressions Head CTA 08/28/17 1437 Signed Impressions: Service Date/Time: August 14:40 - CONCLUSION: 1. Focal thromboembolism in the distal M1 segment of the right MCA. This is amenable to endovascular treatment if clinically indicated. 2. No other focal intraluminal abnormality. 3. No evidence of focal aneurysm, AVM or vascular displacement. Cameron Marques MD Head CT 08/28/17 0000 Signed Impressions: Service Date/Time: August 14:27 - CONCLUSION: 1. No focal or acute intracranial hemorrhage. 2. Stable bilateral cortical atrophy and chronic white matter changes. Jose Carlos Munoz MD Narrative Course The patient has an acute ischemic stroke and will receive TPA. The case was discussed with neurologist Dr. Eagle. The case was discussed with the patient' s daughter who agrees with the use of TPA. Case discussed with Dr. Fitzgerald of the cold patcher service. She will go to the [facility]. Critical Care Narrative Aggregate critical care time was 40 minutes. Time to perform other separately billable procedures was not included in the critical care time. My time did not include minutes spent treating any other patients simultaneously or on activities that did not directly contribute to the patient's treatment. The services I provided to this patient were to treat and/or prevent clinically significant deterioration that could result in: cardiopulmonary arrest I provided critical care services requiring my management, as noted below: Chart data review, documentation time, medication orders and management, vital sign assessments/reviewing monitor data, ordering and reviewing lab tests, ordering and interpreting/reviewing x-rays and diagnostic studies, care of the patient and discussion of the patient with the admitting physicians. Stroke Alert NIHSS NIH Stroke Scale Result: 23 NIHSS Time Completed: 14:33 Diagnosis Diagnosis: Primary Impression: Acute CVA (cerebrovascular accident) Admitting Physician Requests: Admit Jair Gleason MD Aug 28, 2017 14:37
[2017-08-28] MEDS ORDERED: ALTEPLASE DRIP 60.5 MG in SYRINGE/BAG 1 EA IV ONE (14:45)
[2017-08-28] MEDS ORDERED: SODIUM CHLORIDE 0.9% 50 ML BAG IVF ONE (14:45)
[2017-08-28] MEDS ORDERED: IPRASOL INH (14:45)
[2017-08-28] MEDS ORDERED: KETO10 PO (14:45)
[2017-08-28] MEDS ORDERED: MISCELLANEOUS NURSING INFORMATION XX PRN (14:45)
[2017-08-28] MEDS ORDERED: ALTEPLASE BOLUS 9 MG/9 ML SYR IV ONE (14:45)
--- NOTE | 2017-08-28 14:49 | RADRPT ---
EXAM DATE/TIME: 08/28/2017 14:27 [facility] COMPARISON: CT BRAIN W/O CONTRAST, August 19, 2017, 16:52. INDICATIONS : Stroke alert, right sided gaze, left sided weakness and aphasia RADIATION DOSE: 56.35 CTDIvol (mGy) MEDICAL HISTORY : Non-responsive. SURGICAL HISTORY : Non-responsive. ENCOUNTER: Initial ACUITY: 1 day PAIN SCALE: Non-responsive LOCATION: cranial TECHNIQUE: Multiple contiguous axial images were obtained of the head. Using automated exposure control and adj ustment of the mA and/or kV according to patient size, radiation dose was kept as low as reasonably a chievable to obtain optimal diagnostic quality images. DICOM format image data is available electro nically for review and comparison. FINDINGS: CEREBRUM: The ventricles are normal for age. There is stable bilateral cortical atrophy and chronic white matte r changes. No evidence of midline shift, mass lesion, hemorrhage or acute infarction. No extra-axial fluid collections are seen. POSTERIOR FOSSA: The cerebellum and brainstem are intact. The 4th ventricle is midline. The cerebellopontine angle i s unremarkable. EXTRACRANIAL: The visualized portion of the orbits is intact. SKULL: The calvaria is intact. No evidence of skull fracture. No new or significant changes compared to the prior examination. CONCLUSION: 1. No focal or acute intracranial hemorrhage. 2. Stable bilateral cortical atrophy and chronic white matter changes. Jose Carlos Munoz MD on August 28, 2017 at 14:44 Board Certified Radiologist. This report was verified electronically.
[2017-08-28 14:59] LABS: AUTOMATED NEUTROPHIL # 7.1 TH/MM3 (1.8-7.7); BASOPHIL # 0.1 TH/MM3 (0-0.2); EOSINOPHIL # 0.2 TH/MM3 (0-0.4); EOSINOPHIL % 1.9 % (0.0-4.0); HEMATOCRIT 42.7 % (35.0-46.0); HEMOGLOBIN 14.1 GM/DL (11.6-15.3); LYMPH % 11.4 % (9.0-44.0); LYMPHOCYTE # 1.1 TH/MM3 (1.0-4.8); MEAN CELL VOLUME 95.2 FL (80.0-100.0); MEAN CORPUSCULAR HEMOGLOBIN 31.4 PG (27.0-34.0); MEAN PLATELET VOLUME 8.6 FL (7.0-11.0); MONO % 9.5 % (0.0-8.0); MONOCYTE # 0.9 TH/MM3 (0-0.9); NEUT % 76.2 % (16.0-70.0); PLATELET COUNT 248 TH/MM3 (150-450); RED BLOOD COUNT 4.48 MIL/MM3 (4.00-5.30); RED CELL DISTRIBUTION WIDTH 13.4 % (11.6-17.2); WHITE BLOOD COUNT 9.3 TH/MM3 (4.0-11.0)
[2017-08-28] MEDS ORDERED: IODIXANOL 320 MG/ML 10 ML VIAL (for Rad CT) IVCONTRAST ONE (15:17)
[2017-08-28 15:22] LABS: INTERNATIONAL NORMALIZED RATIO 1.1 RATIO
[2017-08-28] MEDS ORDERED: SODIUM CHLOR 0.9% 1000 ML INJ 1,000 ML IV SCH ×2 (15:25→17:45)
[2017-08-28 15:30] LABS: TROPONIN I 0.02 NG/ML (0.02-0.05)
[2017-08-28] MEDS ORDERED: ONDANSETRON HCL 4 MG/2 ML VIAL IV PUSH PRN (15:30)
[2017-08-28] MEDS ORDERED: MAGNESIUM SULFATE INJ 4 GM in SODIUM CHLORIDE 0.9% INJ 92 ML IV PRN (15:30)
[2017-08-28] MEDS ORDERED: RESP: ALBUTEROL 2.5 MG/IPRATROPIUM 0.5 MG NEB (PRN) INH (15:30)
[2017-08-28] MEDS ORDERED: MAGNESIUM HYDROXIDE SUSP 30 ML CUP PO PRN (15:30)
[2017-08-28] MEDS ORDERED: MAGNESIUM OXIDE 400 MG TAB PO PRN (15:30)
[2017-08-28] MEDS ORDERED: POTASSIUM CHLOR 40 MEQ PREMIX 100 ML IV PRN ×2 (15:30)
[2017-08-28] MEDS ORDERED: POTASSIUM PHOSPHATE MONOBASIC 500 MG TAB PO PRN (15:30)
[2017-08-28] MEDS ORDERED: SODIUM PHOSPHATE INJ 30 MMOL in SODIUM CHLOR 0.9% 250 ML INJ 240 ML IV PRN (15:30)
[2017-08-28] MEDS ORDERED: ACETAMINOPHEN 325 MG TAB PO PRN (15:30)
[2017-08-28] MEDS ORDERED: POTASSIUM PHOSPHATE MONOBASIC 500 MG TAB PO/TUBE PRN (15:30)
[2017-08-28] MEDS ORDERED: MAGNESIUM SULFATE INJ 2 GM in SODIUM CHLORIDE 0.9% INJ 96 ML IV PRN (15:30)
[2017-08-28] MEDS ORDERED: hydrALAZINE HCL 20 MG/ML VIAL IV PUSH PRN (15:30)
[2017-08-28] MEDS ORDERED: POTASSIUM CHLOR 20 MEQ PREMIX 100 ML IV PRN ×2 (15:30)
[2017-08-28] MEDS ORDERED: POTASSIUM CHLORIDE 25 MEQ EFFERVESCENT TAB PO PRN (15:30)
[2017-08-28] MEDS ORDERED: POTASSIUM PHOSPHATE INJ 30 MMOL in SODIUM CHLOR 0.9% 250 ML INJ 250 ML IV PRN (15:30)
[2017-08-28] MEDS ORDERED: CHLORHEXIDINE GLUCONATE 2 % 1 PACK (2 CLOTHS) TOP PRN (15:30)
[2017-08-28] MEDS ORDERED: DEXTROSE 50% IN WATER 50 ML VIAL(D50) IV PUSH PRN (15:30)
[2017-08-28] MEDS ORDERED: MISCELLANEOUS NURSING INFORMATION XX SCH (15:30)
[2017-08-28] MEDS ORDERED: LABETALOL HCL 100 MG/20 ML VIAL IV PUSH PRN (15:30)
--- NOTE | 2017-08-28 15:33 | RADRPT ---
EXAM DATE/TIME: 08/28/2017 14:40 [facility] COMPARISON: CT BRAIN W/O CONTRAST, August 28, 2017, 14:27. INDICATIONS : Stroke alert, right sided gaze, left sided weakness, aphasia IV CONTRAST: 97 cc Visipaque (iodixanol) IV ; Cumulative dose for multiple exams. RADIATION DOSE: 35.89 CTDIvol (mGy) ; Combined studies MEDICAL HISTORY : Non-responsive. SURGICAL HISTORY : Non-responsive. ENCOUNTER: Initial ACUITY: 1 day PAIN SCALE: Non-responsive LOCATION: cranial TECHNIQUE: Volumetric scanning was performed using a multi-row detector CT scanner. The data was post processed with a variety of visualization algorithms including full volume maximum intensity projection, multi -planar sliding thin slab reformation, curved planar reformation, and surface rendering techniques. Using automated exposure control and adjustment of the mA and/or kV according to patient size, radiat ion dose was kept as low as reasonably achievable to obtain optimal diagnostic quality images. DICO M format image data is available electronically for review and comparison. FINDINGS: There is excellent visualization of the major intracranial arteries out to the second-order branch ve ssels. An intraluminal filling defect is identified in the distal M1 segment of the right middle cerebral ar jamaal at its bifurcation. There is thrombus extending into the origin of the M2 branches. Relatively d ecreased flow in the M2 and M3 branches of the right middle cerebral artery is demonstrated compared to the left. Left cerebral circulation and vertebral basilar circulation are unremarkable. CONCLUSION: 1. Focal thromboembolism in the distal M1 segment of the right MCA. This is amenable to endovascular treatment if clinically indicated. 2. No other focal intraluminal abnormality. 3. No evidence of focal aneurysm, AVM or vascular displacement. Cameron Marques MD on August 28, 2017 at 15:22 Board Certified Radiologist. This report was verified electronically.
[2017-08-28 16:06] LABS: CHOLESTEROL/ HDL RATIO 5.23 RATIO; HDL CHOLESTEROL 30.4 MG/DL (40.0-60.0)
[2017-08-28] MEDS ORDERED: VERAPAMIL HCL 5 MG/2 ML VIAL ONE (16:13)
[2017-08-28] MEDS ORDERED: NITROGLYCERIN 2% OINT 1 GM PACKET ONE ×2 (16:13→16:14)
[2017-08-28] MEDS ORDERED: HEPARIN SODIUM - IV 10,000 UNITS/10 ML VIAL ONE (16:30)
--- NOTE | 2017-08-28 16:50 | RADRPT ---
EXAM DATE/TIME: 08/28/2017 14:40 [facility] COMPARISON: No previous studies available for comparison. INDICATIONS : Stroke alert, right sided gaze, left sided weakness, aphasia IV CONTRAST: 97 cc Visipaque (iodixanol) IV ; Cumulative dose for multiple exams. RADIATION DOSE: 35.89 CTDIvol (mGy) ; Combined studies MEDICAL HISTORY : Non-responsive. SURGICAL HISTORY : Non-responsive. ENCOUNTER: Initial ACUITY: 1 day PAIN SCALE: Non-responsive LOCATION: cranial Elevated flow velocities and ICA/CCA ratios have been found to correlate with increased degrees of vessel stenosis, calculated as percentage of diameter relative to a normal segment of distal ICA/CCA. TECHNIQUE: Volumetric scanning was performed using a multirow detector CT scanner. The data was post processed with a variety of visualization algorithms including full-volume maximum intensity projection, multip lanar sliding thin-slab reformation, curved-planar reformation, and surface-rendering techniques. Us ing automated exposure control and adjustment of the mA and/or kV according to patient size, radiatio n dose was kept as low as reasonably achievable to obtain optimal diagnostic quality images. DICOM f ormat image data is available electronically for review and comparison. FINDINGS: AORTIC ARCH: There is a three-vessel origin of the great vessels from the aorta. Next plaque at the origin of the left subclavian artery with resultant approximate 50% stenosis. RIGHT CAROTID: The common carotid artery is intact. Eccentric bulky calcified plaque in the distal carotid bulb abhi ry extending to the origin of the internal carotid artery. Resultant 55-60% stenosis of the internal carotid origin. Internal carotid artery is otherwise patent to the skull base. The external carotid a rtery is intact. LEFT CAROTID: The common carotid artery is intact. Small focal calcified plaque in the distal carotid bulb with res ultant less than 10% stenosis. Internal carotid artery is otherwise patent to the skull base. The ext ernal carotid artery is intact. VERTEBRALS: The vertebral arteries have a symmetric diameter. No stenotic lesions are seen. Visualized lung apices demonstrate a moderate right-sided pleural effusion. No significant soft tissu e mass or cervical adenopathy. CONCLUSION: 1. Eccentric bulky calcified plaque in the distal right carotid bulb extending into the internal hatch tid origin with resultant 55-60% stenosis. 2. No significant flow-limiting stenosis in the left carotid arteries. 3. 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 4. Incidental note of moderate right-sided pleural effusion. Sedrick Foreman MD on August 28, 2017 at 16:40 Board Certified Radiologist. This report was verified electronically.
--- NOTE | 2017-08-28 16:57 | PD.RAD ---
Post Procedure Progress Note Pre Procedure Diagnosis: (1) Acute CVA (cerebrovascular accident) Post Procedure Diagnosis: (1) Acute CVA (cerebrovascular accident) Procedure Date: Aug 28, 2017 Supervising Radiologist: Fco Guerrero Proceduralist/Assist: Khadijah Potter, RT(R)(CV), Leticia Aranda RT(R) Anesthesia: Local, Analgesia Plan of Activity Patient to Unit: ROPU Patient Condition: Good See PACS Report for procedural detail/treatment Vascular-Arterial Procedure Procedure 1 Procedure Site: Right Carotid (Stroke alert) Procedure(s): Angiogram Access Access Site(s): Right Femoral Artery Closure Site(s): Right vascular closure device (PerClose) Findings: Prominent M2 embolus in Right MCA seen previously no longer present. Possible small vessel embolus in an M3 branch. No intervention Fco Guerrero MD Aug 28, 2017 16:57
[2017-08-28] MEDS: INSULIN NovoLIN REGULAR SUPPLEMENTAL SCALE SQ SCH ×2 (17:00→21:00)
--- NOTE | 2017-08-28 17:01 | MB ---
cc: ABEL MAY DATE OF CONSULTATION 08/28/17 REASON FOR CONSULTATION Stroke alert HISTORY OF PRESENT ILLNESS Ms. Ulloa is a very nice 87-year-old woman who has a history of atrial fibrillation and also her daughter relates a history of a "clot in her heart". She was at a custodial and at about 1:30 this afternoon suddenly had difficulty with her speech as well as left-sided weakness. EVAC was called and a stroke alert was called. She has continued with symptoms of severe left-sided weakness, right gaze. She is able to talk however. PAST MEDICAL HISTORY 1. History of atrial fibrillation. 2. Her daughter relates that she has a history of "blood clot in her heart". She was previously on Eliquis but had to stop this because of frequent falling. 3. She has history of coronary artery disease and TIA in the past. MEDICATIONS 1. Tofranil loperamide 2. Macrobid. 3. Allopurinol. 4. Tylenol 5. Zoloft 6. 7. Ultram. 8. Lasix. 9. Aspirin 81 mg daily. 10. Travatan ALLERGIES ATENOLOL BETAXOLOL CARVEDILOL LABETALOL METOPROLOL NEBIVOLOL NIACIN PINDOLOL PROPRANOLOL SOTALOL TIMOLO. PROCAINAMIDE ACEBUTOLOL HYDROMET NEUROLOGIC EXAMINATION Blood pressure is 149/64, pulse 74, respirations 16, temperature 97 degrees. Higher cortical function - lethargic. She is able to follow commands. She can talk and repeat simple phrases. She has left-sided neglect with a rightward gaze. She has a left upper motor neuron VII palsy. On motor exam, she has 0/5 strength of all major groups in left arm and left leg, normal strength on the right. Reflexes are symmetric. IMAGING STUDIES CT of the brain - no acute change present. CT angiogram of the brain is pending. LABORATORY DATA White count is 9300. Hemoglobin 14.1, hematocrit 42.7%, platelets 248,000. Sodium is 140, potassium 3.7, chloride 103, BUN is 24, creatinine 0.8, glucose 112, CPK 77, PT 11, INR 1.1, APTT 27.3. IMPRESSION Acute right MCA distribution stroke, possibly cardioembolic. RECOMMENDATIONS The patient is a candidate for IV TPA and meets criteria. This was discussed with her daughter including a risk of hemorrhage of 6%. The patient's daughter agrees to proceed. Therefore, I recommend proceeding with IV TPA. Also follow up on the CT angiogram to rule out large vessel occlusion. We will follow up the post TPA orders. Have close neuro checks and vital signs following TPA. Monitor the patient in the ICU. Further evaluation with echocardiogram. We cannot do an MRI of the brain Because of the pacemaker. Also check a lipid panel. Withhold any antiplatelet or anticoagulants for least 24 hours post TPA. MD SALINAS Bush/ /3:18 PM /4:33 PM
[2017-08-28] MEDS ORDERED: IODIXANOL 320 MG/ML 50 ML VIAL (for RAD SPEC) I-ARTERIAL ONE (17:09)
--- NOTE | 2017-08-28 17:17 | HHI.HP ---
[facility] Service Critical Care Medicine Primary Care Physician Unknown Admission Diagnosis Acute CVA Diagnosis: Chief Complaint: Unable to move left side. Travel History International Travel<30 Days: No Contact w/Intl Traveler <30 Da: No Traveled to Known Affected Are: No History of Present Illness 87 y/o woman recently discharged after treatment for multiple rib fractures arrives one hour after developing left sided weakness. After evaluation by Neurology she received tPA. CTA head demonstrated left thrombus, felt to be cardiac origin embolic, and she went to IR for clot retrieval. Debris resolved at time of thrombectomy and no clot removed - likely dissolved after tPA. History includes recent pacemaker insertion and fall last week at her long term resulting in several rib fractures. Past Family Social History Allergies: Coded Allergies: acebutolol (Unverified Allergy, Severe, a-fib, 08/28/17) atenolol (Unverified Allergy, Severe, a-fib, 08/28/17) betaxolol (Unverified Allergy, Severe, a-fib, 08/28/17) carvedilol (Unverified Allergy, Severe, a-fib, 08/28/17) labetalol (Unverified Allergy, Severe, a-fib, 08/28/17) metoprolol (Unverified Allergy, Severe, a-fib, 08/28/17) nebivolol (Unverified Allergy, Severe, a-fib, 08/28/17) niacin (Unverified Allergy, Severe, 08/28/17) pindolol (Unverified Allergy, Severe, a-fib, 08/28/17) propranolol (Unverified Allergy, Severe, a-fib, 08/28/17) quinidine (Unverified Allergy, Severe, Hallucinations, 08/28/17) sotalol (Unverified Allergy, Severe, a-fib, 08/28/17) timolol (Unverified Allergy, Severe, a-fib, 08/28/17) procainamide (Unverified Allergy, Unknown, PT DOES NOT KNOW, 08/28/17) Uncoded Allergies: HYDROMET SPRAYS (Allergy, Unknown, 05/16/10) Past Medical History Past Medical History Hx Anticoagulant Therapy: Yes (BABY ASA) Arthritis: Yes (bilat knees) Atrial Fibrillation: Yes Anxiety: No Heart Rhythm Problems: Yes (a fib) Cancer: Yes (skin cancer removed) Cardiac Catheterization: Yes Cardiovascular Problems: Yes High Cholesterol: No Chemotherapy: No Chest Pain: Yes Congestive Heart Failure: Yes Cerebrovascular Accident: Yes (TIA at 52) Coronary Artery Disease: Yes Dementia: Yes Diabetes: No Diminished Hearing: No Gastrointestinal Disorders: Yes (GERD, DIARRHEA) GERD: No Glaucoma: Yes (L EYE) Genitourinary: Yes Hepatitis: No Hiatal Hernia: No Hypertension: Yes (ESSENTIAL) Immune Disorder: No Kidney Stones: Yes Musculoskeletal: Yes Neurologic: Yes Psychiatric: No Reproductive: No Respiratory: No Integumentary: No Immunizations Current: Yes Migraines: No Myocardial Infarction: Yes Radiation Therapy: No Renal Failure: No Seizures: No Thyroid Disease: Yes Ulcer: No Menopausal: Yes : 4 Para: 3 Miscarriage: 1 Past Surgical History Abdominal Surgery: Yes (cholecystectomy) AICD: No Arteriovenous Shunt: No Body Medical Devices: pacemaker Cardiac Surgery: Yes (pacemaker, cardiac ablations) Cholecystectomy: Yes Ear Surgery: No Endocrine Surgery: No Eye Surgery: Yes (cataract removal bilat) Genitourinary Surgery: No Gynecologic Surgery: Yes (hysterectomy) Hysterectomy: Yes Insulin Pump: No Joint Replacement: No Oral Surgery: No Pacemaker: Yes Thoracic Surgery: No Other Surgery: Yes Social History Alcohol Use: No Tobacco Use: No Substance Use: No Allergies-Medications Allergies-Medications (Allergen,Severity, Reaction): Coded Allergies: acebutolol (Unverified Allergy, Severe, a-fib, 08/28/17) atenolol (Unverified Allergy, Severe, a-fib, 08/28/17) betaxolol (Unverified Allergy, Severe, a-fib, 08/28/17) carvedilol (Unverified Allergy, Severe, a-fib, 08/28/17) labetalol (Unverified Allergy, Severe, a-fib, 08/28/17) metoprolol (Unverified Allergy, Severe, a-fib, 08/28/17) nebivolol (Unverified Allergy, Severe, a-fib, 08/28/17) niacin (Unverified Allergy, Severe, 08/28/17) pindolol (Unverified Allergy, Severe, a-fib, 08/28/17) propranolol (Unverified Allergy, Severe, a-fib, 08/28/17) quinidine (Unverified Allergy, Severe, Hallucinations, 08/28/17) sotalol (Unverified Allergy, Severe, a-fib, 08/28/17) timolol (Unverified Allergy, Severe, a-fib, 08/28/17) procainamide (Unverified Allergy, Unknown, PT DOES NOT KNOW, 08/28/17) Uncoded Allergies: HYDROMET SPRAYS (Allergy, Unknown, 05/16/10) Reported Meds & Prescriptions Reported Meds & Active Scripts Active Levofloxacin 500 Mg Tablet 500 Mg PO DAILY Lidoderm (Lidocaine) 5 % Adh..patch 1 Patch T-DERMAL DAILY 10 Days Hydrocodone-Acetamin 5-325 mg (Hydrocodone/Acetaminophen) 5 Mg-325 Mg Tablet 1 Tab PO Q4H PRN Phenergan (Promethazine HCl) 25 Mg Tablet 25 Mg PO Q6H PRN Reported Duoneb (Ipratropium-Albuterol Neb) 0.5-2.5 Mg/3 Ml Neb 1 Nebule INH Q6HR NEB Ketorolac (Ketorolac Tromethamine) 10 Mg Tab 10 Mg PO BID Tofranil (Imipramine HCl) 50 Mg Tab 50 Mg PO HS Myrbetriq (Mirabegron) 50 Mg Tab 50 Mg PO DAILY Allopurinol 100 Mg Tab 100 Mg PO DAILY Zoloft (Sertraline HCl) 25 Mg Tab 25 Mg PO DAILY Synthroid (Levothyroxine Sodium) 100 Mcg Tab 75 Mcg PO DAILY Furosemide 20 Mg Tab 20 Mg PO DAILY Aspirin 81 Mg Chew 81 Mg CHEW DAILY Travatan Z Opth Drops (Travoprost) 0.004 % Soln 1 Drop EACH EYE HS Physical Exam Vital Signs Vital Signs Date Time Temp Pulse Resp B/P (MAP) Pulse Ox O2 Delivery O2 Flow Rate FiO2 08/28/17 16:31 08/28/17 15:41 98.2 69 18 146/64 (91) 96 Room Air 08/28/17 15:30 96 Room Air 08/28/17 15:30 96 Room Air 08/28/17 14:35 73 16 156/67 (96) 97 Physical Exam GENERAL: 87-year-old female, anxious. HEAD: Atraumatic. Normocephalic. EYES: No injection. ENT: No nasal bleeding or discharge. Mucous membranes pink and moist. NECK: Trachea midline. Airway widely patent. CARDIOVASCULAR: Paced at 72/min. Neck veins full. 2/6 systolic murmur LSB -> apex RESPIRATORY: No accessory muscle use. Clear, no adventitious sounds. GASTROINTESTINAL: Abdomen soft, non-tender, nondistended. No guarding. MUSCULOSKELETAL: No obvious deformities. No clubbing. No cyanosis. No edema. Well perfused. NEUROLOGICAL: Hemiparesis - left upper and left lower extremity, brent-neglect of the left side. There is facial asymmetry, left droop. Speech clear, confused. Right side normal strength. Laboratory Laboratory Tests Test 08/28/17 14:35 08/28/17 15:07 White Blood Count 9.3 Red Blood Count 4.48 Hemoglobin 14.1 Hematocrit 42.7 Mean Corpuscular Volume 95.2 Mean Corpuscular Hemoglobin 31.4 Mean Corpuscular Hemoglobin Concent 33.0 Red Cell Distribution Width 13.4 Platelet Count 248 Mean Platelet Volume 8.6 Neutrophils (%) (Auto) 76.2 Lymphocytes (%) (Auto) 11.4 Monocytes (%) (Auto) 9.5 Eosinophils (%) (Auto) 1.9 Basophils (%) (Auto) 1.0 Neutrophils # (Auto) 7.1 Lymphocytes # (Auto) 1.1 Monocytes # (Auto) 0.9 Eosinophils # (Auto) 0.2 Basophils # (Auto) 0.1 CBC Comment DIFF FINAL Differential Comment Prothrombin Time 11.0 Prothromb Time International Ratio 1.1 Activated Partial Thromboplast Time 27.3 Fibrinogen 480 Bedside Hemoglobin 12.6 Bedside Hematocrit 37.0 Bedside Sodium 140 Bedside Potassium 3.7 Bedside Chloride 103 Bedside Blood Urea Nitrogen 24 Bedside Creatinine 0.8 Bedside Glucose 112 Total Creatine Kinase 77 Troponin I 0.02 Triglycerides Level 165 Cholesterol Level 159 LDL Cholesterol 96 HDL Cholesterol 30.4 Cholesterol/HDL Ratio 5.23 Human Chorionic Gonadotropin, Quant 3 Result Diagram: 08/28/17 1435 Caprini VTE Risk Assessment Caprini VTE Risk Assessment: Mod/High Risk (score >= 2) Caprini Risk Assessment Model Point Value = 1 Point Value = 2 Point Value = 3 Point Value = 5 Age 41-60 Minor surgery BMI > 25 kg/m2 Swollen legs Varicose veins or History of unexplained or recurrent spontaneous Oral contraceptives or hormone replacement Sepsis (< 1 month) Serious lung disease, including pneumonia (< 1 month) Abnormal pulmonary function Acute myocardial infarction Congestive heart failure (< 1 month) History of inflammatory bowel disease Medical patient at bed rest Age 61-74 Arthroscopic surgery Major open surgery (> 45 min) Laparoscopic surgery (> 45 min) Malignancy Confined to bed (> 72 hours) Immobilizing plaster cast Central venous access Age >= 75 History of VTE Family history of VTE Factor V Leiden Prothrombin [id number] Lupus anticoagulant Anticardiolipin antibodies Elevated serum homocysteine Heparin-induced thrombocytopenia Other congenital or acquired thrombophilia Stroke (< 1 month) Elective arthroplasty Hip, pelvis, or leg fracture Acute spinal cord injury (< 1 month) Prophylaxis Regimen Total Risk Factor Score Risk Level Prophylaxis Regimen 0-1 Low Early ambulation 2 Moderate Order ONE of the following: *Sequential Compression Device (SCD) *Heparin 5000 units SQ BID 3-4 Higher Order ONE of the following medications: *Heparin 5000 units SQ TID *Enoxaparin/Lovenox 40 mg SQ daily (WT < 150 kg, CrCl > 30 mL/min) *Enoxaparin/Lovenox 30 mg SQ daily (WT < 150 kg, CrCl > 10-29 mL/min) *Enoxaparin/Lovenox 30 mg SQ BID (WT < 150 kg, CrCl > 30 mL/min) AND/OR *Sequential Compression Device (SCD) 5 or more Highest Order ONE of the following medications: *Heparin 5000 units SQ TID (Preferred with Epidurals) *Enoxaparin/Lovenox 40 mg SQ daily (WT < 150 kg, CrCl > 30 mL/min) *Enoxaparin/Lovenox 30 mg SQ daily (WT < 150 kg, CrCl > 10-29 mL/min) *Enoxaparin/Lovenox 30 mg SQ BID (WT < 150 kg, CrCl > 30 mL/min) AND *Sequential Compression Device (SCD) Assessment and Plan Assessment and Plan Assessment: 1. Acute ischemic stroke, right hemisphere. 2. Permanent a-fib. 3. PPM, VVI mode. Plan: 1. Stroke alert protocol. 2. tPA administered followed by attempted clot retrieval. 3. No chemical DVT px. Hold antiplatelet meds tonight. 4. Pepcid. 5. Bed rest. 6. Repeat head CT after 24 hours, sooner for change. Overall impression: Patient is critically ill following acute right hemispheric stroke. Watch closely for bleeding in view of recent rib fractures. Maintain BP control s/p tPA. Critical Care 40 mins Erwin Black MD Aug 28, 2017 17:17
[2017-08-28] MEDS ORDERED: PROMETHAZINE HCL 25 MG TAB PO PRN (17:45)
--- NOTE | 2017-08-28 17:50 | RADRPT ---
EXAM DATE/TIME: 08/28/2017 16:06 [facility] COMPARISON: No previous studies available for comparison. INDICATIONS : patient came as a stroke alert. MEDICAL HISTORY : 1. A fib 2. CHF 3. TIA 4. CAD 5. Dementia 6. GERD 7.HTN 8.IA SURGICAL HISTORY : 1.Cholecystectomy 2. Hysterectomy 3. Pacemaker ENCOUNTER: Initial ACUITY: 1 day PAIN SCORE: 0/10 FLUORO TIME: 8.3 minutes IMAGE SERIES: 9 ACCESS SITE: Right Femoral artery CONTRAST: 50 cc Visipaque (iodixanol) MEDICATION(S): 1.) 1,000 units Heparin IV DEVICE(S): 1.) Right common femoral artery Perclose PROCEDURE : 1. Ultrasound-guided puncture of the access site. 2. Angiography of the access site prior to closure device. 3. Conscious sedation with continuous EKG and Oximetry monitoring. 4. Percutaneous closure of the access site. 5. Angiography of the right internal carotid The risks, benefits and alternatives to the procedure were explained and verbal and written consent w as obtained. The site was prepped in sterile fashion. Full sterile technique was used, including ca p, mask, sterile gloves and gown and a large sterile sheet. Hand hygiene and 2% chlorhexidine and/or betadine/alcohol prep was utilized per protocol for cutaneous antisepsis. Sterile gel and sterile p robe cover were utilized for ultrasound guidance. The skin and subcutaneous tissues were infiltrated with local anesthetic solution. With ultrasound and fluoroscopic guidance the selected artery was punctured and a vascular sheath was placed. Angiography of the common femoral artery was performed for evaluation prior to percutaneous closure device placement. JB2 catheter was used to select the brachiocephalic artery and subsequently right common carotid. Con trast injection confirmed position. Catheter and wire were manipulated into the external. Wire was ex changed for a Magic torque to facilitate placement of the 8 Thai neuron guide catheter. Through the guide catheter, the JB2 catheter and wire were manipulated into the internal. Contrast injection loida wed excellent antegrade flow with resolution of the previous embolus identified at the bifurcation. A single trifurcation branch vessel showed sluggish antegrade flow however, this is too far peripheral to treat percutaneously Hemostasis was obtained with the prescribed medicated closure device. Conscious sedation was perform ed with the prescribed dosages and duration as above in the presence of an independent trained radiol ogy nurse to assist in the monitoring of the patient. EKG and oximetry remained stable throughout th e procedure. CONCLUSION: 1. Embolus at the bifurcation seen previously appears to have responded to IV TPA. Excellent flow to the trifurcation vessels. 2. However, a single branch vessel of the trifurcation did still show some sluggish flow probably fro m a small embolus in this location. This is too far peripheral for percutaneous therapy, however. Fco Guerrero MD on August 28, 2017 at 17:30 Board Certified Radiologist. This report was verified electronically.
[2017-08-28] MEDS: MORPHINE SULFATE 2 MG/ML INJ IV PUSH PRN (18:17)
[2017-08-28] MEDS: LATANOPROST 0.005% OPHT SOLN 2.5 ML BTL EACH EYE SCH (22:00)
[2017-08-28] MEDS: FAMOTIDINE 20 MG/2 ML VIAL IV PUSH SCH (22:00)
[2017-08-28] MEDS: DOCUSATE SODIUM 50 MG/SENNA 8.6 MG TAB PO SCH (22:02)
[2017-08-29] VITALS (8 sets, daily range): BP systolic 136–171; BP diastolic 64–86; PULSE 69–70; RESP 16–19; TEMP 98–98.7; O2SAT 91–98
[2017-08-29] MEDS: INSULIN NovoLIN REGULAR SUPPLEMENTAL SCALE SQ SCH ×2 (03:00→08:00)
[2017-08-29] MEDS: CHLORHEXIDINE GLUCONATE 2 % 1 PACK (2 CLOTHS) TOP SCH (04:00)
[2017-08-29 04:53] LABS: HEMATOCRIT 39.3 % (35.0-46.0); HEMOGLOBIN 12.9 GM/DL (11.6-15.3); MEAN CELL VOLUME 94.8 FL (80.0-100.0); MEAN CORPUSCULAR HEMOGLOBIN 31.1 PG (27.0-34.0); MEAN CORPUSCULAR HGB CONC 32.8 % (32.0-36.0); MEAN PLATELET VOLUME 8.9 FL (7.0-11.0); PLATELET COUNT 220 TH/MM3 (150-450); RED BLOOD COUNT 4.15 MIL/MM3 (4.00-5.30); RED CELL DISTRIBUTION WIDTH 13.8 % (11.6-17.2); WHITE BLOOD COUNT 8.9 TH/MM3 (4.0-11.0)
[2017-08-29 05:06] LABS: BICARBONATE 23.8 MEQ/L (21.0-32.0); CALCIUM 8.5 MG/DL (8.5-10.1); CREATININE 0.71 MG/DL (0.50-1.00)
[2017-08-29] MEDS: LEVOTHYROXINE SODIUM 75 MCG TAB PO SCH (06:12)
[2017-08-29] MEDS: ACETAMINOPHEN/HYDROcodone 325 MG/5 MG TAB PO PRN ×2 (06:12→16:27)
[2017-08-29] MEDS: FAMOTIDINE 20 MG/2 ML VIAL IV PUSH SCH ×2 (08:42→22:53)
[2017-08-29] MEDS: FUROSEMIDE 20 MG TAB PO SCH (08:42)
[2017-08-29] MEDS: TOLTERODINE TARTRATE 4 MG CAP LA PO SCH (08:43)
[2017-08-29] MEDS: DOCUSATE SODIUM 50 MG/SENNA 8.6 MG TAB PO SCH ×2 (08:43→22:53)
[2017-08-29] MEDS: SERTRALINE HCL 50 MG TAB PO SCH (08:43)
[2017-08-29] MEDS: MORPHINE SULFATE 2 MG/ML INJ IV PUSH PRN (11:43)
--- NOTE | 2017-08-29 12:29 | HHI.CCPN ---
Subjective Remarks/Hospital Course 87 y/o woman recently discharged after treatment for multiple rib fractures arrives one hour after developing left sided weakness. After evaluation by Neurology she received tPA. CTA head demonstrated left thrombus, felt to be cardiac origin embolic, and she went to IR for clot retrieval. Debris resolved at time of thrombectomy and no clot removed - likely dissolved after tPA. History includes recent pacemaker insertion and fall last week at her residential resulting in several rib fractures. 08/29: Moves 4 limbs to command and with strength. Speech clear. BP control acceptable. Check ECHO heart. Objective Vital Signs Date Time Temp Pulse Resp B/P (MAP) Pulse Ox O2 Delivery O2 Flow Rate FiO2 08/29/17 09:15 96 21 08/29/17 08:00 69 08/29/17 08:00 98.6 16 167/72 (103) 08/29/17 08:00 Room Air Intake and Output 08/29/17 08/29/17 08/30/17 08:00 16:00 00:00 Output Total 750 ml Balance -750 ml Result Diagram: 08/29/1741908/29/17419 Objective Remarks GENERAL: 87-year-old female, anxious. HEAD: Atraumatic. Normocephalic. EYES: No injection. ENT: No nasal bleeding or discharge. Mucous membranes pink and moist. NECK: Trachea midline. Airway widely patent. CARDIOVASCULAR: Paced at 72/min. Neck veins full. 2/6 systolic murmur LSB -> apex RESPIRATORY: No accessory muscle use. Clear, no adventitious sounds. Comfortable pattern. GASTROINTESTINAL: Abdomen soft, non-tender, nondistended. No guarding. MUSCULOSKELETAL: No obvious deformities. No clubbing. No cyanosis. No edema. Well perfused. NEUROLOGICAL: Hemiparesis left side resolved. Perhaps minimal left facial weakness. Speech clear, alert. A/P Assessment and Plan Assessment: 1. Acute ischemic stroke, right hemisphere. 2. Permanent a-fib. 3. PPM, VVI mode. Plan: 1. Stroke alert protocol. 2. tPA administered followed by attempted clot retrieval. 3. No chemical DVT px. Hold antiplatelet meds until cleared by Neurology Service.. 4. Pepcid. 5. Bed rest -> ambulate with assistance. 6. Repeat head CT. Overall impression: Patient stable after tPA for acute ischemic stroke, likely embolic. No Hgb drop after tPA. Permanent a-fib. Anticoagulation stopped due to recent falls. Family has requested her Metallurgy Laboratory Technician (Dr. Ambrose Beth) to opine on treatment going forward. Update: Dr. Beth (Cardiology) would like to start Eliquis 2.5 mg bid when OK with Neurology Service and hold antiplatelet therapy. Erwin Black MD Aug 29, 2017 12:29
--- NOTE | 2017-08-29 14:24 | EKG ---
Date Performed: 08/28/2017 Time Performed: 15:37:43 PTAGE: 87 years EKG: ELECTRONIC VENTRICULAR PACEMAKER ABNORMAL RHYTHM ECG PREVIOUS TRACING : 03/02/2017 10.04 Lightly underlying atrial fibrillation, but no change from prior. DOCTOR: Ortega Gunn Interpretating Date/Time 08/29/2017 14:23:48
--- NOTE | 2017-08-29 16:11 | MB ---
cc: SAULO MONIQUE M.D. DATE OF CONSULTATION: 08/29/2017 REASON FOR CONSULTATION: Evaluation of atrial fibrillation and stroke. HISTORY: Brittany Ulloa is an 87-year-old woman well-known to me, she has chronic atrial fibrillation has a [employer] pacemaker. She has had problems with falls, and eventually they opted to take her off her antithrombotic agent. Unfortunately she then came in with an embolic cerebrovascular accident with left-sided weakness but is complete resolve with TPA and was consulted after that. I have already spoken to the patient and daughter and recommend resuming Eliquis 2.5 mg p.o. twice a day, once its okayed with Dr. Eagle. The patient has known coronary artery disease with a 50% LAD stenosis from a catheterization in 2009 but has no angina. Her pacemaker is changed out within the past year. Her atrial fibrillation is permanent. At the time I am seeing her she denies any complaints. PAST MEDICAL HISTORY: 1. Includes coronary disease 2. Esophageal reflux 3. Hypertension 4. Gout. 5. Hyperlipidema. 6. VVI pacemaker. 7. Permanent atrial fibrillation 8. polycythemia vera 9. TIA 1987. 10. Fresh stroke. PAST SURGICAL HISTORY: 1. Includes ablation of AV node in 1988, right knee surgery, previous catheterization 2009 with a 50% LAD stenosis. 2. Cataract surgery in her 50s 3. Cholecystectomy 4. Clavicle fracture from previous fall 5. Left finger amputated 6. Hysterectomy 7. thyroidectomy. MEDICATIONS Charted ALLERGIES BETA-ELKIN <<1:34>> <<1:33>> QUININE FAMILY HISTORY: Positive for coronary disease with bypass surgery in a brother dementia in grandmother. Diabetes in brother. SOCIAL HISTORY She smoked from age 20 to age 32, has not smoked since. REVIEW OF SYSTEMS Noncontributory. PHYSICAL EXAMINATION IN GENERAL: Elderly white female. She remembers who I was. VITAL SIGNS: Her vital signs are Charted. HEAD, EYES, EARS, NOSE, AND THROAT: Exam unremarkable. NECK: No JVD. CHEST: Clear to auscultation. Her chest, Wall is tender and I forgot to mention that she had a recent fall with six rib fractures. ABDOMEN: Soft. EXTREMITIES: The extremities reveal no peripheral edema. TESTING: EKG shows A fib with underlying ventricular pacing. LABORATORIES/X-RAYS: Her laboratories and x-ray findings were charted. IMPRESSION/PLAN: Permanent atrial fibrillation, history of frequent falls. Is off anticoagulation for that reason and has now suffered a cerebrovascular accident, in view of the risks at the present. I would recommend resuming Eliquis but using a dose 2-1/2 mg twice a day and not combining it with any antiplatelet therapy. As far as when to initiate Eliquis we will follow the advice of Dr. Eagle the neurologist. I will be available as needed to see her, please call if there is any questions. Thank you MD VIANEY Nina/burke /1:57 PM /3:33 PM
--- NOTE | 2017-08-29 20:55 | RADRPT ---
EXAM DATE/TIME: 08/29/2017 20:25 [facility] COMPARISON: CT BRAIN W/O CONTRAST, August 28, 2017, 14:27. INDICATIONS : Altered mental status. Post tPA. RADIATION DOSE: 56.35 CTDIvol (mGy) MEDICAL HISTORY : Cerebrovascular disease. Dementia. Hypertension. SURGICAL HISTORY : None. ENCOUNTER: Subsequent ACUITY: 2 days PAIN SCALE: 0/10 LOCATION: cranial TECHNIQUE: Multiple contiguous axial images were obtained of the head. Using automated exposure control and adj ustment of the mA and/or kV according to patient size, radiation dose was kept as low as reasonably a chievable to obtain optimal diagnostic quality images. DICOM format image data is available electro nically for review and comparison. FINDINGS: CEREBRUM: The ventricles are normal for age with moderate atrophic change. Chronic small vessel ischemic change s are again noted. No evidence of midline shift, mass lesion, hemorrhage or acute infarction. No ext ra-axial fluid collections are seen. POSTERIOR FOSSA: The cerebellum and brainstem are intact. The 4th ventricle is midline. The cerebellopontine angle i s unremarkable. EXTRACRANIAL: The visualized portion of the orbits is intact. SKULL: The calvaria is intact. No evidence of skull fracture. CONCLUSION: Stable appearance with no acute hemorrhage or mass effect Jaylon Paredes MD on August 29, 2017 at 20:52 Board Certified Radiologist. This report was verified electronically.
--- NOTE | 2017-08-29 21:05 | HHI.PR ---
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 s/p iv TPA and successful thrombectomy with resolution of stroke sx atrial fibrillation Plan start eliquis 2.5 mg bid as recommended by Dr Beth also statin due to elevated LDL Diagnosis/Plan: Subjective Subjective Comments No acute events reported Pt reports strength is improving back to baseline Active Medications Current Medications Medications (Trade) Dose Ordered Sig/Tim Route Start Time Stop Time Status Last Admin (Apresoline Inj) 10 mg Q30M PRN IV PUSH 08/28/17 15:30 (Tylenol) 650 mg Q6H PRN PO 08/28/17 15:30 (Pepcid Inj) 20 mg Q12HR IV PUSH 08/28/17 21:00 08/29/17 08:42 (Zofran Inj) 4 mg Q6H PRN IV PUSH 08/28/17 15:30 (Duoneb Neb) 1 ampule Q2HR NEB PRN INH 08/28/17 15:30 Miscellaneous Information 1 Q361D XX 08/28/17 15:30 (Chlorhexidine 2% Cloth) 3 pack Taper DAILY@04 TOP 08/29/17 04:00 08/25/18 03:59 (Chlorhexidine 2% Cloth) 3 pack UNSCH PRN TOP 08/28/17 15:30 (Cherie-Colace) 1 tab BID PO 08/28/17 21:00 08/29/17 08:43 (Milk Of Magnesia Liq) 30 ml Q12H PRN PO 08/28/17 15:30 (Morphine Inj) 2 mg Q3H PRN IV PUSH 08/28/17 17:45 08/29/17 11:43 (Lasix) 20 mg DAILY PO 08/29/17 09:00 08/29/17 08:42 (Holt 5-325 Mg) 1 tab Q4H PRN PO 08/28/17 17:45 08/29/17 16:27 (Synthroid) 75 mcg DAILY@0600 PO 08/29/17 06:00 08/29/17 06:12 (Phenergan) 25 mg Q6H PRN PO 08/28/17 17:45 (Zoloft) 25 mg DAILY PO 08/29/17 09:00 08/29/17 08:43 (Detrol La) 4 mg DAILY PO 08/29/17 09:00 08/29/17 08:43 (Xalatan 0.005% Opt Soln) 1 drop HS EACH EYE 08/28/17 21:00 08/28/17 22:00 Allergies Allergies Coded Allergies acebutolol (Unverified Allergy, Severe, a-fib, 08/28/17) atenolol (Unverified Allergy, Severe, a-fib, 08/28/17) betaxolol (Unverified Allergy, Severe, a-fib, 08/28/17) carvedilol (Unverified Allergy, Severe, a-fib, 08/28/17) labetalol (Unverified Allergy, Severe, a-fib, 08/28/17) metoprolol (Unverified Allergy, Severe, a-fib, 08/28/17) nebivolol (Unverified Allergy, Severe, a-fib, 08/28/17) niacin (Unverified Allergy, Severe, 08/28/17) pindolol (Unverified Allergy, Severe, a-fib, 08/28/17) propranolol (Unverified Allergy, Severe, a-fib, 08/28/17) quinidine (Unverified Allergy, Severe, Hallucinations, 08/28/17) sotalol (Unverified Allergy, Severe, a-fib, 08/28/17) timolol (Unverified Allergy, Severe, a-fib, 08/28/17) procainamide (Unverified Allergy, Unknown, PT DOES NOT KNOW, 08/28/17) Uncoded Allergies HYDROMET SPRAYS ( Allergy, Unknown, 05/16/10) Exam I&O / VS Vital Signs Date Time Temp Pulse Resp B/P (MAP) Pulse Ox O2 Delivery O2 Flow Rate FiO2 08/29/17 20:47 98.4 69 18 171/72 (105) 95 08/29/17 18:16 16 08/29/17 18:15 16 08/29/17 15:40 98.4 69 18 162/86 (111) 97 08/29/17 14:00 69 08/29/17 14:00 69 19 136/64 (88) 95 08/29/17 12:00 98.0 69 19 141/64 (89) 94 08/29/17 09:15 96 21 08/29/17 08:00 69 08/29/17 08:00 98.6 69 16 167/72 (103) 98 08/29/17 08:00 Room Air 98 08/29/17 03:25 98.7 69 18 168/77 (107) 91 08/28/17 23:35 98.6 96 16 168/71 (103) 97 Exam Comments alert, speech is normal, follow commands well, no visual - spatial neglect CN intact MOTOR 5/5 BUE and no drift. Objective Radiology Results CT brain tonight is stable with no hemorrhage and no edema Micro and Labs Laboratory Tests Test 08/28/17 22:10 08/29/17 04:20 Nasal Screen MRSA (PCR) MRSA NOT DETECTED White Blood Count 8.9 Red Blood Count 4.15 Hemoglobin 12.9 Hematocrit 39.3 Mean Corpuscular Volume 94.8 Mean Corpuscular Hemoglobin 31.1 Mean Corpuscular Hemoglobin Concent 32.8 Red Cell Distribution Width 13.8 Platelet Count 220 Mean Platelet Volume 8.9 Blood Urea Nitrogen 21 Creatinine 0.71 Random Glucose 100 Calcium Level 8.5 Sodium Level 146 Potassium Level 3.9 Chloride Level 113 Carbon Dioxide Level 23.8 Anion Gap 9 Estimat Glomerular Filtration Rate 78 Jh Eagle MD PhD Aug 29, 2017 21:05
[2017-08-29] MEDS: APIXABAN 2.5 MG TABLET PO SCH (22:53)
[2017-08-29] MEDS: LATANOPROST 0.005% OPHT SOLN 2.5 ML BTL EACH EYE SCH (22:53)
[2017-08-30 00:33] VITALS: BP 130/75; PULSE 70; RESP 18; TEMP 97.7; O2SAT 98
[2017-08-30] MEDS: CHLORHEXIDINE GLUCONATE 2 % 1 PACK (2 CLOTHS) TOP SCH (04:00)
[2017-08-30 05:14] VITALS: BP 148/74; PULSE 69; RESP 18; TEMP 97.7; O2SAT 97
[2017-08-30] MEDS: LEVOTHYROXINE SODIUM 75 MCG TAB PO SCH (05:19)
[2017-08-30 05:47] VITALS: O2SAT 97
[2017-08-30 08:00] VITALS: BP 145/94; PULSE 69; RESP 19; TEMP 97.5; O2SAT 96
[2017-08-30 08:11] LABS: HEMATOCRIT 37.1 % (35.0-46.0); HEMOGLOBIN 12.7 GM/DL (11.6-15.3)
[2017-08-30] MEDS: DOCUSATE SODIUM 50 MG/SENNA 8.6 MG TAB PO SCH (09:00)
[2017-08-30] MEDS ORDERED: ATORVASTATIN 10 MG TAB PO SCH (09:00)
[2017-08-30 09:02] LABS: BICARBONATE 26.4 MEQ/L (21.0-32.0); CALCIUM 8.4 MG/DL (8.5-10.1); CREATININE 0.71 MG/DL (0.50-1.00)
--- NOTE | 2017-08-30 09:28 | PD.VS.CON ---
History of Present Illness Chief Complaint: CVA Consult Requested by: Neurology, medical services History of Present Illness 87 yo female with a history of a-fib and repeated falls (numbering 26 according to the daughter) who was off anticoagulation and then had an acute R hemispheric CVA manifesting as LEFT somatic paralysis. Brought to ED and administered intra-arterial TPA with resolution of hemiparesis. Presently, patient is recovering and has no motor deficit but only memory trouble and slowed speech. Much of her history (HPI And PMH) is obtained from the daughter. A w/u for CVA included CTA neck that showed 50-60% R ICA stenosis. Past/Family/Social History Past Medical History a fib CVA as above CAD HTN Past Surgical History LINDSAY roel cataracts thyroid surgery Social History lives in assisted living, formerly lived with daughter Family History NC Home Medications Active Scripts Levofloxacin (Levofloxacin) 500 Mg Tablet, 500 MG PO DAILY for Infection, #5 TAB 0 Refills Prov:Estevan Leslie 08/24/17 Lidocaine (Lidoderm) 5 % Adh..patch, 1 PATCH T-DERMAL DAILY for Pain Management for 10 Days, #10 PATCH Prov:Estevan Leslie 08/24/17 Hydrocodone/Acetaminophen (Hydrocodone-Acetamin 5-325 mg) 5 Mg-325 Mg Tablet, 1 TAB PO Q4H Y for PAIN SCALE 5 TO 10, #10 TAB Prov:Estevan Leslie 08/24/17 Promethazine (Phenergan) 25 Mg Tablet, 25 MG PO Q6H Y for NAUSEA OR VOMITING, # 12 TAB 0 Refills Prov:Fabio Rose MD 06/28/17 Reported Medications Ipratropium-Albuterol Neb (Duoneb) 0.5-2.5 Mg/3 Ml Neb, 1 NEBULE INH Q6HR NEB for Breathing Treatment, #120 NEBULE 0 Refills 08/28/17 Ketorolac (Ketorolac) 10 Mg Tab, 10 MG PO BID for Pain Management, TAB 0 Refills 08/28/17 Imipramine HCL (Tofranil) 50 Mg Tab, 50 MG PO HS for Control Depression, TAB 0 Refills 08/19/17 Mirabegron (Myrbetriq) 50 Mg Tab, 50 MG PO DAILY for Urinary Symptom Managemen, #30 TAB 0 Refills 08/19/17 Allopurinol (Allopurinol) 100 Mg Tab, 100 MG PO DAILY for Gout, #30 TAB 0 Refills 08/19/17 Sertraline (Zoloft) 25 Mg Tab, 25 MG PO DAILY, #30 TAB 0 Refills 03/02/17 Levothyroxine (Synthroid) 100 Mcg Tab, 75 MCG PO DAILY for Thyroid, #30 TAB 0 Refills 03/02/17 Furosemide (Furosemide) 20 Mg Tab, 20 MG PO DAILY, #30 TAB 0 Refills 02/03/17 Aspirin (Aspirin) 81 Mg Chew, 81 MG CHEW DAILY, TAB 0 Refills 01/10/17 Travoprost Opth Drops (Travatan Z Opth Drops) 0.004 % Soln, 1 DROP EACH EYE HS for Glaucoma, #1 BOTTLE 0 Refills 01/10/17 Discontinued Reported Medications Loperamide (Loperamide) 2 Mg Cap, 2 MG PO DIRECTED Y for DIARRHEA, CAP 0 Refills One capsule after each loose stool. Not to exceed 8 capsules per day. 08/19/17 Nitrofurantoin Monohydrate Macrocrystals (Macrobid) 100 Mg Capsule, 100 MG PO DAILY for Infection, CAP 0 Refills 08/19/17 Acetaminophen (Tylenol Extra Strength) 500 Mg Tablet, 1 TAB PO BID 06/27/17 Tramadol (Ultram) 50 Mg Tab, 50 MG PO Q4H Y for PAIN, TAB 0 Refills 02/03/17 Coded Allergies: acebutolol (Unverified Allergy, Severe, a-fib, 08/28/17) atenolol (Unverified Allergy, Severe, a-fib, 08/28/17) betaxolol (Unverified Allergy, Severe, a-fib, 08/28/17) carvedilol (Unverified Allergy, Severe, a-fib, 08/28/17) labetalol (Unverified Allergy, Severe, a-fib, 08/28/17) metoprolol (Unverified Allergy, Severe, a-fib, 08/28/17) nebivolol (Unverified Allergy, Severe, a-fib, 08/28/17) niacin (Unverified Allergy, Severe, 08/28/17) pindolol (Unverified Allergy, Severe, a-fib, 08/28/17) propranolol (Unverified Allergy, Severe, a-fib, 08/28/17) quinidine (Unverified Allergy, Severe, Hallucinations, 08/28/17) sotalol (Unverified Allergy, Severe, a-fib, 08/28/17) timolol (Unverified Allergy, Severe, a-fib, 08/28/17) procainamide (Unverified Allergy, Unknown, PT DOES NOT KNOW, 08/28/17) Uncoded Allergies: HYDROMET SPRAYS (Allergy, Unknown, 05/16/10) Review of Systems ROS Limitations: Altered Mental Status Physical Exam Vitals/I&O Date Time Temp Pulse Resp B/P (MAP) Pulse Ox O2 Delivery O2 Flow Rate FiO2 08/30/17 08:00 97.5 69 19 145/94 (111) 96 08/30/17 05:47 97 08/30/17 05:14 97.7 69 18 148/74 (98) 97 08/30/17 00:33 97.7 70 18 130/75 (93) 98 08/29/17 20:47 98.4 69 18 171/72 (105) 95 08/29/17 20:30 70 08/29/17 18:16 16 08/29/17 18:15 16 08/29/17 15:40 98.4 69 18 162/86 (111) 97 08/29/17 14:00 69 08/29/17 14:00 69 19 136/64 (88) 95 08/29/17 12:00 98.0 69 19 141/64 (89) 94 08/30/17 08/30/17 08/30/17 07:00 15:00 23:00 Output Total 600 ml 200 ml Balance -600 ml -200 ml Neuro: conversant, no distress; NGUYEN Speech slightly slowed but clear HEENT: NC/AT; anicteric sclera Neck: no JVD Heart: irreg rate Lungs: clear B Vascular: palpable UE pulses B Extremities: NGUYEN Laboratory Tests Test 08/30/17 07:04 Hemoglobin 12.7 Hematocrit 37.1 Blood Urea Nitrogen 17 Creatinine 0.71 Random Glucose 89 Calcium Level 8.4 Sodium Level 141 Potassium Level 3.6 Chloride Level 105 Carbon Dioxide Level 26.4 Anion Gap 10 Estimat Glomerular Filtration Rate 78 B-Type Natriuretic Peptide 1101 Last [address] 08/29/17 0000 Signed Impressions: Service Date/Time: Tuesday, August 29, 2017 20:25 - CONCLUSION: Stable appearance with no acute hemorrhage or mass effect Jaylon Paredes MD Cerebral Arteriogram 08/28/17 1603 Signed Impressions: Service Date/Time: August 16:06 - CONCLUSION: 1. Embolus at the bifurcation seen previously appears to have responded to IV TPA. Excellent flow to the trifurcation vessels. 2. However, a single branch vessel of the trifurcation did still show some sluggish flow probably from a small embolus in this location. This is too far peripheral for percutaneous therapy, however. Fco Guerrero MD Neck CTA 08/28/17 1437 Signed Impressions: Service Date/Time: August 14:40 - CONCLUSION: 1. Eccentric bulky calcified plaque in the distal right carotid bulb extending into the internal carotid origin with resultant 55-60%% stenosis. 2. No significant flow-limiting stenosis in the left carotid arteries. 3. 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 4. Incidental note of moderate right-sided pleural effusion. Sedrick Foreman MD Head CTA 08/28/17 1437 Signed Impressions: Service Date/Time: August 14:40 - CONCLUSION: 1. Focal thromboembolism in the distal M1 segment of the right MCA. This is amenable to endovascular treatment if clinically indicated. 2. No other focal intraluminal abnormality. 3. No evidence of focal aneurysm, AVM or vascular displacement. Cameron Marques MD Assessment and Plan Plan Acute CVA that I think originated as a cardiac source. Dr. Beth is her product manager medical device and I agree that she needs anticoagulation, although clearly there are risks given her falls. The daughter and I spoke about this today. I think inpatient rehab is very appropriate. With regards to the 60% R ICA stenosis, I don't think CEA is indicated at present given likely embolic CVA from heart. However, she would likely benefit from statin therapy, but I will defer the ultimate decision to the medical team and Dr. Beth. The patient's daughter has my phone numbers if she needs anything. Romeo Roper MD FACS [facility] agricultural technical officer [facility] Heart and Vascular Surgery at [facility] [phone] Romeo Roper MD Aug 30, 2017 09:27
[2017-08-30] MEDS ORDERED: HYDR-3516 PO (09:43)
[2017-08-30] MEDS ORDERED: APIX2.5T PO (09:43)
[2017-08-30] MEDS ORDERED: LIPI40TA PO (09:46)
[2017-08-30] MEDS: FUROSEMIDE 20 MG TAB PO SCH (09:48)
[2017-08-30] MEDS: TOLTERODINE TARTRATE 4 MG CAP LA PO SCH (09:48)
[2017-08-30] MEDS: SERTRALINE HCL 50 MG TAB PO SCH (09:49)
--- NOTE | 2017-08-30 09:49 | HHI.DCPOC ---
Discharge Care Plan Diagnosis: (1) Cerebral embolism and thrombosis Goals to Promote Your Health * To prevent worsening of your condition and complications * To maintain your health at the optimal level Directions to Meet Your Goals Take your medications as prescribed Follow your dietary instruction Follow activity as directed Keep your appointments as scheduled Take your immunizations and boosters as scheduled If your symptoms worsen call your PCP, if no PCP go to Urgent Care Center or Emergency Room Smoking is Dangerous to Your Health. Avoid second hand smoke Call the 24-hour hour crisis hotline for domestic abuse at Fabio Rose MD Aug 30, 2017 09:49
--- NOTE | 2017-08-30 09:49 | HHI.PR ---
Subjective Remarks Nursing denies any deterioration since last night. Patient herself says she feels fine. She's been tolerating by mouth intake well. No reports of any recurrence of strokelike symptoms. Objective Vital Signs Date Time Temp Pulse Resp B/P (MAP) Pulse Ox O2 Delivery O2 Flow Rate FiO2 08/30/17 08:00 97.5 69 19 145/94 (111) 96 08/30/17 05:47 97 08/30/17 05:14 97.7 69 18 148/74 (98) 97 08/30/17 00:33 97.7 70 18 130/75 (93) 98 08/29/17 20:47 98.4 69 18 171/72 (105) 95 08/29/17 20:30 70 08/29/17 18:16 16 08/29/17 18:15 16 08/29/17 15:40 98.4 69 18 162/86 (111) 97 08/29/17 14:00 69 08/29/17 14:00 69 19 136/64 (88) 95 08/29/17 12:00 98.0 69 19 141/64 (89) 94 I/O 08/29/17 08/29/17 08/29/17 08/30/17 08/30/17 08/30/17 06:59 14:59 22:59 06:59 14:59 22:59 Output Total 750 ml 600 ml 200 ml Balance -750 ml -600 ml -200 ml Output Urine Total 750 ml 600 ml 200 ml # Bowel Movements 1 Result Diagram: 08/30/17 0704 08/30/17 0704 Objective Remarks Elderly white female lying in bed, awake, alert, pleasant mood No facial droop, no slurred speech, has 5 out of 5 proximal upper extremity strength bilaterally including fistgrip A/P Assessment and Plan 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 Continue high-dose Lipitor upon discharge today. Stable for discharge from vascular surgery standpoint with no surgical intervention needed. Blood pressure is stable, afebrile. Patient has met maximal benefit from hospitalization and is clinically stable for discharge today to inpatient rehab. Patient to get echo done post-discharge as she is now already anticoagulated and would not exchange specialist. Fabio Rose MD Aug 30, 2017 09:49
[2017-08-30] MEDS: FAMOTIDINE 20 MG/2 ML VIAL IV PUSH SCH (09:50)
[2017-08-30] MEDS: APIXABAN 2.5 MG TABLET PO SCH (10:00)
[2017-08-30 10:20] VITALS: O2SAT 97
[2017-08-30 12:24] VITALS: PULSE 69
--- NOTE | 2017-08-30 14:28 | ECHRPT ---
Indication: CVA/TIA CONCLUSIONS Normal left ventricular size. Mild concentric left ventricular hypertrophy. The left ventricular systolic function is mildly reduced with an estimated ejection fraction in the range of 45- 50%. There is global hypokinesis with distinct regional wall motion abnormalities. The left atrial size is moderately dilated. Moderate mitral valve regurgitation. Mitral annular calcification is present. Aortic valve sclerosis is present. [id number] aortic valve regurgitation. There is moderate tricuspid regurgitation. Mild pulmonary valve regurgitation. BP: 168 / 77 HR: 69 Rhythm: Sinus MEASUREMENTS (Male / Female) Normal Values Technical Quality:Fair 2D ECHO LV Diastolic Diameter PLAX 5.1 cm 4.2 - 5.9 / 3.9 - 5.3 cm LV Systolic Diameter PLAX 3.9 cm IVS Diastolic Thickness 1.2 cm 0.6 - 1.0 / 0.6 - 0.9 cm LVPW Diastolic Thickness 1.2 cm 0.6 - 1.0 / 0.6 - 0.9 cm LV Relative Wall Thickness 0.5 RV Internal Dim ED PLAX 3.6 cm LVOT Diameter 1.8 cm Aortic Root Diameter 2.8 cm LA Systolic Diameter LX 4.0 cm 3.0 - 4.0 / 2.7 - 3.8 cm LA Volume Index 58.3 cm/m 16 - 28 cm/m M-MODE LV Diastolic Diameter MM 5.8 cm 4.2 - 5.9 / 3.9 - 5.3 cm LV Systolic Diameter MM 4.5 cm LV Ejection Fraction MM Teich 44.6 % LV Cardiac Index MM Teich 2773.8 cm/minm IVS Diastolic Thickness MM 1.0 cm 0.6 - 1.0 / 0.6 - 0.9 cm LVPW Diastolic Thickness MM 0.9 cm 0.6 - 1.0 / 0.6 - 0.9 cm LV Relative Wall Thickness MM 0.3 0.24 - 0.42 / 0.22 - 0.42 LV Mass Index MM 125.2 g/m 49 - 115 / 43 - 95 g/m AV Cusp Separation MM 1.6 cm DOPPLER AV Peak Velocity 125.0 cm/s AV Peak Gradient 6.3 mmHg AV Mean Gradient 3.0 mmHg AV Velocity Time Integral 23.3 cm AI Peak Velocity 354.0 cm/s AI Peak Gradient 50.1 mmHg AI Pressure Half Time 485.0 ms LVOT Peak Velocity 50.1 cm/s LVOT Peak Gradient 1.0 mmHg LVOT Velocity Time Integral 10.4 cm LVOT Cardiac Index 995.2 cm/minm AV Area Cont Eq vti 1.1 cm AV Area Cont Eq pk 1.0 cm Mitral E Point Velocity 126.0 cm/s LV E' Lateral Velocity 12.1 cm/s Mitral E to LV E' Lateral Ratio 10.4 LV E' Septal Velocity 5.3 cm/s Mitral E to LV E' Septal Ratio 24.0 TR Peak Velocity 314.0 cm/s TR Peak Gradient 39.4 mmHg Right Atrial Pressure 10.0 mmHg Pulmonary Artery Systolic Pressu 49.4 mmHg Right Ventricular Systolic Press 49.4 mmHg PV Peak Velocity 49.6 cm/s PV Peak Gradient 1.0 mmHg FINDINGS LEFT VENTRICLE Normal left ventricular size. Mild concentric left ventricular hypertrophy. The left ventricular systolic function is mildly reduced with an estimated ejection fraction in the range of 45- 50%. There is global hypokinesis with distinct regional wall motion abnormalities. RIGHT VENTRICLE Normal right ventricular size and systolic function. A pacemaker wire is noted. LEFT ATRIUM The left atrial size is moderately dilated. RIGHT ATRIUM The right atrial size is normal. ATRIAL SEPTUM Normal atrial septal thickness without atrial level shunting by limited color doppler interrogation. AORTA The aortic root and proximal ascending aorta are normal in size on limited imaging. MITRAL VALVE Moderate mitral valve regurgitation. Mitral annular calcification is present. AORTIC VALVE Aortic valve sclerosis is present. [id number] aortic valve regurgitation. TRICUSPID VALVE There is moderate tricuspid regurgitation. PULMONARY VALVE Mild pulmonary valve regurgitation. VESSELS The inferior vena cava is normal in size. PERICARDIUM No pericardial effusion. Ortega Gunn MD (Electronically Signed) Final Date:30 August 2017 14:27
== END 2017-08-30 12:16 | DRG 62 ==
LOC: NEPC 14:29 → NEDA 15:27 → N03B 17:07 → N05A 08-29 15:25
PROVIDERS: ADMIT Hospitalist; ATTEND Hospitalist
PROC: 3E03317 Introduction of Other Thrombolytic into Peripheral Vein, Percutaneous Approach (ICD-10-PCS; principal; 2017-08-28)
PROC: B41FYZZ Fluoroscopy of Right Lower Extremity Arteries using Other Contrast (ICD-10-PCS; 2017-08-28)
PROC: B3161ZZ Fluoroscopy of Right Internal Carotid Artery using Low Osmolar Contrast (ICD-10-PCS; 2017-08-28)
PROC: B31RYZZ Fluoroscopy of Intracranial Arteries using Other Contrast (ICD-10-PCS; 2017-08-28)
DX: I63.411 Cerebral infarction due to embolism of right middle cerebral artery (principal); G81.94 Hemiplegia, unspecified affecting left nondominant side; I50.9 Heart failure, unspecified; I11.0 Hypertensive heart disease with heart failure; F03.90 Unspecified dementia, unspecified severity, without behavioral disturbance, psychotic disturbance, mood disturbance, and anxiety; D45 Polycythemia vera; I48.2 Chronic atrial fibrillation; S22.49XD Multiple fractures of ribs, unspecified side, subsequent encounter for fracture with routine healing; R29.6 Repeated falls; I25.10 Atherosclerotic heart disease of native coronary artery without angina pectoris; K21.9 Gastro-esophageal reflux disease without esophagitis; I25.2 Old myocardial infarction; M10.9 Gout, unspecified; E89.0 Postprocedural hypothyroidism; M17.0 Bilateral primary osteoarthritis of knee; H40.9 Unspecified glaucoma; Z85.828 Personal history of other malignant neoplasm of skin; Z86.73 Personal history of transient ischemic attack (TIA), and cerebral infarction without residual deficits; Z87.891 Personal history of nicotine dependence; Z95.0 Presence of cardiac pacemaker
CPT/HCPCS: 36223; 51702; 70450; 70496; 70498; 76937; 80048; 80061; 82435; 82550; 82565; 82947; 82948; 83880; 84132; 84295; 84484; 84520; 84702; 85014; 85018; 85025; 85027; 85384; 85610; 85730; 86850; 86900; 86901; 87641; 93005; 93306; 94150; 94640; 94667; 94668; C1760; C1769; C1887; C1894; J1644; J2270; J2997; J7030; Q9967

== ENCOUNTER 2017-10-03 15:21 | Emergency (ER) | payer MEDICARE, OTHER ==
[~2017-10-03] VITALS: Ht 162.6 cm; Wt 69.0 kg
[~2017-10-03 15:21] MED LIST changes: +APIX2.5T PO; -ASPI-516 CHEW; +LEVO.075 PO; -LEVO.1 PO; -LEVO500T8 PO; -LIDO1ADH4 T-DERMAL; +LIPI40TA PO; -PROM25TA10 PO
[2017-10-03 15:25] VITALS: BP 120/46; PULSE 69; RESP 16; TEMP 97.8; O2SAT 97
[2017-10-03] MEDS ORDERED: CETI10 PO (15:43)
[2017-10-03] MEDS ORDERED: LEVO.1 PO (15:43)
--- NOTE | 2017-10-03 16:11 | PD ---
HPI Chief Complaint: Fall Time Seen by Provider: 15:27 Travel History International Travel<30 days: No Contact w/Intl Traveler<30days: No Traveled to known affect area: No History of Present Illness HPI 87-year-old female that presents to the ED for evaluation of fall. Fall was not witnessed. Patient comes from a rehabilitation facility and apparently had a mechanical fall better. Unclear etiology. Per report conflicting stories between nursing report and ambulance. Per nursing report patient did not have any bleed. Per the back she did have a bleed in her head. She does not have any bleeding of her head. The only complaint she has is of right elbow pain. She is recently in rehabilitation secondary to a stroke that she had last year. She does take Eliquis to prevent blood clots. She has no other medical issues at this time. She denies any pain other than to the right elbow which she states is 4 out of 10. She does have some cognitive difficulties which appear to be chronic secondary to her CVA and possible early dementia. Daughter provides most of the information. She does tell me that her roommate has recently been diagnosed with the flu and are concerned that she might have it as well as of the wanted to see if she could get checked for it as well here. She has no chest pain. No hip pain. No leg pain or arm pain. She does have some skin tears to her lower legs from the Eliquis and minor injuries. Patient and family deny any syncope like symptoms. PFSH Past Medical History Hx Anticoagulant Therapy: Yes Arthritis: Yes (knees) Asthma: No Atrial Fibrillation: Yes Autoimmune Disease: No Anxiety: No Depression: No Heart Rhythm Problems: Yes (Has AFib and now a Pacemaker) Cancer: No Cardiac Catheterization: Yes Cardiovascular Problems: Yes (CAD,CHF, HYPERLIPIDEMIA,PACEMAKER, A-FIB,HTN) High Cholesterol: Yes Chemotherapy: No Chest Pain: Yes (ED with chest pain few months ago - nothing found) Congestive Heart Failure: Yes COPD: No Cerebrovascular Accident: Yes Coronary Artery Disease: Yes Dementia: Yes Diabetes: No Diminished Hearing: No Endocrine: No Gastrointestinal Disorders: Yes (GERD, DIARRHEA) GERD: Yes 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) Hepatitis: No Hiatal Hernia: No Hypertension: Yes (ESSENTIAL) Immune Disorder: No Implanted Vascular Access Dvce: Yes Kidney Stones: Yes Musculoskeletal: Yes (Arthritis in knees) Neurologic: Yes (Dementia) Psychiatric: Yes (Dementia) Reproductive: No Respiratory: No Integumentary: No Immunizations Current: Yes Migraines: No Myocardial Infarction: Yes Radiation Therapy: No Renal Failure: No Seizures: No Sickle Cell Disease: No Sleep Apnea: No Thyroid Disease: Yes Ulcer: No Menopausal: Yes : 4 Para: 3 Miscarriage: 1 Past Surgical History Abdominal Surgery: Yes (blockage in intestines,Cholecyctectomy) AICD: No Arteriovenous Shunt: No Body Medical Devices: pacemaker Cardiac Surgery: Yes (Ablations and pacemaker ) Cholecystectomy: Yes Ear Surgery: No Endocrine Surgery: Yes (Thyroidectomy ) Eye Surgery: Yes (Cartaracts bilaterally ) Genitourinary Surgery: No Gynecologic Surgery: Yes (Hysterectomy ) Hysterectomy: Yes Insulin Pump: No Joint Replacement: No Neurologic Surgery: Yes (Angiogram) Oral Surgery: No Pacemaker: Yes Thoracic Surgery: No Other Surgery: Yes Social History Alcohol Use: No Tobacco Use: No Substance Use: No Allergies-Medications (Allergen,Severity, Reaction): Coded Allergies: acebutolol (Unverified Allergy, Severe, a-fib, 10/03/17) atenolol (Unverified Allergy, Severe, a-fib, 10/03/17) betaxolol (Unverified Allergy, Severe, a-fib, 10/03/17) carvedilol (Unverified Allergy, Severe, a-fib, 10/03/17) labetalol (Unverified Allergy, Severe, a-fib, 10/03/17) metoprolol (Unverified Allergy, Severe, a-fib, 10/03/17) nebivolol (Unverified Allergy, Severe, a-fib, 10/03/17) pindolol (Unverified Allergy, Severe, a-fib, 10/03/17) propranolol (Unverified Allergy, Severe, a-fib, 10/03/17) quinidine (Unverified Allergy, Severe, Hallucinations, 10/03/17) sotalol (Unverified Allergy, Severe, a-fib, 10/03/17) timolol (Unverified Allergy, Severe, a-fib, 10/03/17) niacin (Unverified Allergy, Unknown, 10/03/17) procainamide (Unverified Allergy, Unknown, PT DOES NOT KNOW, 10/03/17) Uncoded Allergies: HYDROMET SPRAYS (Allergy, Unknown, 05/16/10) Reported Meds & Prescriptions Reported Meds & Active Scripts Active Tamiflu (Oseltamivir Phosphate) 75 Mg Cap 75 Mg PO BID 5 Days Lipitor (Atorvastatin Calcium) 40 Mg Tab 40 Mg PO HS Eliquis (Apixaban) 2.5 Mg Tab 2.5 Mg PO BID Hydrocodone-Acetamin 5-325 mg (Hydrocodone/Acetaminophen) 5 Mg-325 Mg Tablet 1 Tab PO Q6HR PRN Tofranil (Imipramine HCl) 50 Mg Tab 50 Mg PO HS Myrbetriq (Mirabegron) 50 Mg Tab 50 Mg PO DAILY Allopurinol 100 Mg Tab 100 Mg PO DAILY Zoloft (Sertraline HCl) 25 Mg Tab 25 Mg PO DAILY Furosemide 20 Mg Tab 20 Mg PO DAILY Travatan Z Opth Drops (Travoprost) 0.004 % Soln 1 Drop EACH EYE HS Reported Synthroid (Levothyroxine Sodium) 100 Mcg Tab 100 Mcg PO DAILY Cetirizine (Cetirizine HCl) 10 Mg Tab 10 Mg PO HS Review of Systems ROS Limitations: Poor Historian Except as stated in HPI: all other systems reviewed are Neg Physical Exam Exam Limitations: Poor Historian Narrative GENERAL: SKIN: Warm and dry. HEAD: Atraumatic. Normocephalic. No laceration or head injury noted. EYES: Pupils equal and round 4 mm reactive and accommodation. No scleral icterus. No injection or drainage. ENT: No nasal bleeding or discharge. Mucous membranes pink and moist. NECK: Trachea midline. No JVD. CARDIOVASCULAR: Regular rate and rhythm. No murmurs, S3, S4. RESPIRATORY: No accessory muscle use. Clear to auscultation. Breath sounds equal bilaterally. GASTROINTESTINAL: Abdomen soft, non-tender, nondistended. Hepatic and splenic margins not palpable. MUSCULOSKELETAL: Extremities without clubbing, cyanosis, or edema. No obvious deformities. Full range of motion of the upper and lower extremities bilaterally. Patient does have some pain with range of motion of the right elbow. 2+ pulses bilaterally. Sensation intact bilaterally. Full range of motion of the hips and lower legs with no obvious pain or deformity other than some old healing skin tears to the legs bilaterally. No lumbar, thoracic, cervical spine fusion palpation. NEUROLOGICAL: Awake and alert. No obvious cranial nerve deficits. Motor grossly within normal limits. Five out of 5 muscle strength in the arms and legs. Normal speech. PSYCHIATRIC: Appropriate mood and affect; insight and judgment normal. Data Data Last Documented VS Vital Signs Date Time Temp Pulse Resp B/P (MAP) Pulse Ox O2 Delivery O2 Flow Rate FiO2 10/03/17 15:35 Room Air 10/03/17 15:25 97.8 69 16 120/46 (70) [address] Brain W/O Iv Contrast(Rout) (10/03/17 15:27) Ct Cerv Spine W/O Contrast (10/03/17 15:27) Influenzae A/B Antigen (10/03/17 15:32) Elbow, Complete (4 Vws) (10/03/17 ) [facility] Medical Decision Making Medical Screen Exam Complete: Yes Emergency Medical Condition: Yes Medical Record Reviewed: Yes Interpretation(s) Last Impressions Head CT 10/03/17 1527 Signed Impressions: Service Date/Time: Tuesday, October 03, 2017 16:03 - CONCLUSION: Negative noncontrast head CT Jaylon Paredes MD Elbow X-Ray 10/03/17 0000 Signed Impressions: Service Date/Time: Tuesday, October 03, 2017 15:55 - CONCLUSION: 1. No acute fracture or dislocation. Sedrick Foreman MD flu negative Differential Diagnosis Head injury versus fall versus fracture versus head bleed versus influenza Narrative Course 87-year-old female that presents to the ED for evaluation of fall. Patient was properly examined and was found to have signs and symptoms consistent appears to be fall. Imaging and influenza test was ordered as patient apparently has been having cold like symptoms also for 3 days and has a roommate with positive for it. CTs and x-ray showed no sign of acute disease. Patient was reassured. Flu was negative. I do recommend starting patient on Tamiflu secondary to her symptoms. Patient and daughter agree with this. Patient will be treated for this. We had case management and ED nurse consult to evaluate to see if patient can be transferred to her rehabilitation facility. All questions where answered to the best my ability. See ED worsening symptoms. Follow with PCP. Diagnosis Primary Impression: Head injury, acute Qualified Codes: S09.90XA - Unspecified injury of head, initial encounter Additional Impressions: Fall Qualified Codes: W19.XXXA - Unspecified fall, initial encounter Exposure to influenza Patient Instructions: General Instructions Additional Instructions: Take medication as prescribed. Tylenol for pain as needed. Follow with PCP. See ED worsening symptoms. Med/Other Pt SpecificInfo: Prescription(s) given Scripts Oseltamivir (Tamiflu) 75 Mg Cap 75 MG PO BID for Mgmt Viral Infection for 5 Days, #10 CAP 0 Refills Prov: Marilu Cesar MD 10/03/17 Disposition: 01 DISCHARGE HOME Condition: Stable Bautista Jonas Oct 03, 2017 16:11
--- NOTE | 2017-10-03 16:11 | RADRPT ---
EXAM DATE/TIME: 10/03/2017 15:55 [facility] COMPARISON: No previous studies available for comparison. INDICATIONS : Right elbow pain post fall. MEDICAL HISTORY : Myocardial infarction. Hypercholesterolemia. Thyroid disease, Dementia. Syncope. Coronary artery dise ase. Anticoagulant therapy. Atrial fibrillation, Hypertension. Gastroesophageal reflux disease. Kidne y stones. Arthritis SURGICAL HISTORY : Pacemaker. Cholecystectomy. Hysterectomy. Bilateral cataract removal. Cardiac catheterization. Thyroi dectomy. Left hand surgery ENCOUNTER: Initial ACUITY: 1 day PAIN SCORE: 4/10 LOCATION: Right upper extremity FINDINGS: Multiple view examination of the right elbow demonstrates no soft tissue swelling, joint effusion, or fracture. The osseous structures are in normal alignment. Bony mineralization is normal. CONCLUSION: 1. No acute fracture or dislocation. Sedrick Foreman MD on October 03, 2017 at 16:07 Board Certified Radiologist. This report was verified electronically.
--- NOTE | 2017-10-03 16:12 | RADRPT ---
EXAM DATE/TIME: 10/03/2017 16:03 [facility] COMPARISON: CT BRAIN W/O CONTRAST, September 07, 2017, 20:19. INDICATIONS : Trauma. Fell and hit head. RADIATION DOSE: 63.32 CTDIvol (mGy) MEDICAL HISTORY : Myocardial infarction. Congestive heart failure. Dementia.Hypertension. SURGICAL HISTORY : Thyroidectomy. Pacemaker.Hysterectomy.Cholecystectomy. ENCOUNTER: Initial ACUITY: 1 day PAIN SCALE: 2/10 LOCATION: cranial TECHNIQUE: Multiple contiguous axial images were obtained of the head. Using automated exposure control and adjustment of the mA and/or kV according to patient size, radiation dose was kept as low as reasonably achievable to obtain optimal diagnostic quality images. DICOM format image data is av ailable electronically for review and comparison. FINDINGS: CEREBRUM: The ventricles are normal for age. No evidence of midline shift, mass lesion, hemorrha ge or acute infarction. No extra-axial fluid collections are seen. POSTERIOR FOSSA: The cerebellum and brainstem are intact. The 4th ventricle is midline. The cer ebellopontine angle is unremarkable. EXTRACRANIAL: The visualized portion of the orbits is intact. SKULL: The calvaria is intact. No evidence of skull fracture. CONCLUSION: Negative noncontrast head CT Jaylon Paredes MD on October 03, 2017 at 16:07 Board Certified Radiologist. This report was verified electronically.
[2017-10-03] MEDS ORDERED: OSEL75 PO (16:30)
--- NOTE | 2017-10-03 16:41 | RADRPT ---
EXAM DATE/TIME: 10/03/2017 16:03 [facility] COMPARISON: CT CERVICAL SPINE W/O CONTRAST, February 29, 2016, 15:52. INDICATIONS : Trauma. Neck pain Fell and hit head. RADIATION DOSE: 25.73 CTDIvol (mGy) MEDICAL HISTORY : Myocardial infarction. Congestive heart failure. Dementia.Hypertension. SURGICAL HISTORY : Thyroidectomy. Hysterectomy.Pacemaker.Cholecystectomy. ENCOUNTER: Initial ACUITY: 1 day PAIN SCALE: 2/10 LOCATION: neck TECHNIQUE: Volumetric scanning of the cervical spine was performed. Multiplanar reconstructions i n the sagittal, coronal and oblique axial planes were performed. Using automated exposure control a nd adjustment of the mA and/or kV according to patient size, radiation dose was kept as low as reason ably achievable to obtain optimal diagnostic quality images. DICOM format image data is available e lectronically for review and comparison. FINDINGS: The sagittal reconstructions demonstrate normal vertebral body height with stable mild retrolisthesis of C4 on C5. Degenerative disc changes are present greatest at the C4-5 C5-6 levels with disc space narrowing and hypertrophic change. There is diffuse osteopenia. Degenerative changes are again noted at the atlantoaxial joint. and normal prevertebral soft tissues. The dens is intact and there is a no rmal atlantoaxial relationship. The axial images demonstrate that the vertebral bodies and posterior elements are intact. The soft ti ssues are within normal limits. There is no evidence of acute fracture or malalignment. CONCLUSION: Negative trauma CT. Jaylon Paredes MD on October 03, 2017 at 16:36 Board Certified Radiologist. This report was verified electronically.
== END 2017-10-03 20:03 | disposition home or self-care (01) ==
LOC: PHEFT 15:21
DX: S09.90XA Unspecified injury of head, initial encounter (principal); E07.9 Disorder of thyroid, unspecified; I48.91 Unspecified atrial fibrillation; I11.0 Hypertensive heart disease with heart failure; I50.9 Heart failure, unspecified; W19.XXXA Unspecified fall, initial encounter; Z20.828 Contact with and (suspected) exposure to other viral communicable diseases; Z79.01 Long term (current) use of anticoagulants
CPT/HCPCS: 70450; 72125; 73080; 87804; 99285